=== PATIENT | female | born 1960 | race African-American/Black ===

== ENCOUNTER 2017-03-26 23:48 | Inpatient (IN) | payer OTHER ==
--- NOTE | 2017-03-26 23:57 | PDOC ---
History of Present Illness - General Chief Complaint: Syncope/Near Syncope Stated Complaint: SYNCOPE Time Seen by Provider: 03/26/17 23:57 - History of Present Illness Initial Comments: 57 year old female with HTN, HLD, and CAD (s/p stent placement 2 years prior) presenting 1 hour after syncope. She states that she has been nauseous since yesterday evening but was able to eat today. Her daughter at bedside states that she heard her mother (the patient) call her name out around 23:00 on the day of presentation at which point her daughter came to her and saw that she had fallen on the floor with minimal responsiveness. She was making noises and was on the floor for a few minutes then eventually came to and was talkative until EMS arrived. Her daughter did not notice any shaking, urination, or defecation. The patient admits to nausea but no vomiting. Denies fevers, chills , constipation, chest pain, cough, sick contacts, or other symptoms. 03/27/17 00:21 Past History - Past Medical History Allergies/Adverse Reactions: Allergies Allergy/AdvReac Type Severity Reaction Status Date / Time No Known Allergies Allergy Verified 03/26/17 23:54 Home Medications: Ambulatory Orders Aspirin [Neli Chewable] 81 mg PO DAILY 03/27/17 Atorvastatin Ca [Lipitor] mg PO HS 03/27/17 Hydrochlorothiazide [Hctz -] 25 mg PO DAILY 03/27/17 Lisinopril [Prinivil] mg PO DAILY 03/27/17 Metoprolol Succinate [Toprol Xl -] mg PO BID 03/27/17 Pantoprazole Sodium 40 mg PO DAILY 03/27/17 - Suicide/Smoking/Psychosocial Hx Smoking History: Never smoked Have you smoked in the past 12 months: No Information on smoking cessation initiated: No Hx Alcohol Use: No Drug/Substance Use Hx: No Review of Systems - Review of Systems Constitutional: No: Chills, Diaphoresis, Fever HEENTM: No: Blurred Vision, Tearing, Recent change in vision, Double Vision Respiratory: No: Cough, Shortness of Breath, Wheezing, Productive cough Cardiac (ROS): Yes: Syncope. No: Chest Pain, Chest Tightness ABD/GI: Yes: Nausea. No: Constipated, Diarrhea, Vomiting : No: Burning, Dysuria, Discharge, Frequency Integumentary: No: Change in Color, Flushing, Lesions Neurological: No: Headache, Numbness, Paresthesia *Physical Exam - Vital Signs Last Vital Signs Temp Pulse Resp BP Pulse Ox 97.6 F 110 H 22 100/69 97 03/26/17 23:55 03/26/17 23:55 03/26/17 23:55 03/26/17 23:55 03/26/17 23:55 - Physical Exam General Appearance: Yes: Nourished, Appropriately Dressed, Apparent Distress HEENT: positive: EOMI, TYRON, Normal ENT Inspection Neck: positive: Trachea midline, Normal Thyroid, Supple. negative: Tender, Rigid Respiratory/Chest: positive: Lungs Clear, Respiratory Distress, Crackles (Fine basilar crackles). negative: Chest Tender Cardiovascular: positive: Regular Rhythm, Regular Rate. negative: JVD, Murmur Gastrointestinal/Abdominal: positive: Normal Bowel Sounds, Flat, Soft. negative : Tender Neurologic: positive: Fully Oriented, Alert, Normal Response ED Treatment Course - LABORATORY CBC & Chemistry Diagram: 03/27/17 00:44 03/27/17 00:44 Medical Decision Making - Medical Decision Making 57 year old with significant cardiac history and recent syncope of unknown cause with diaphoresis, nausea, and shortness of breath prior to episode concerning for vasovagal vs. cardiac syncopal episode. Troponin returned elevated at 0.[address] changes on EKG. Sheila was discussed with the IM admitting resident in person at 2:40 AM and we agreed the patient woudl be appropriate for admission to [facility] after chest xray and UA were performed. Patient will be admitted for further workup of troponemia (NSTEMI vs. UA). 03/27/17 02:49 *DC/Admit/Observation/Transfer Diagnosis at time of Disposition: Syncope and collapse, Troponin level elevated - Discharge Dispostion Condition at time of disposition: Stable Admit: Yes - Referrals - Patient Instructions - Post Discharge Activity
[2017-03-27] MEDS ORDERED: ASPIRIN 81 MG CHEWABLE TABLETS PO ONE (00:18)
[2017-03-27] MEDS ORDERED: SODIUM CHLORIDE 1,000 ML IV STA (00:18)
[2017-03-27] MEDS ORDERED: ONDANSETRON 4 MG/2 ML VIAL IVPUSH ONE (00:21)
[2017-03-27 00:29] VITALS: BMI 28.3
--- NOTE | 2017-03-27 00:42 | PDOC ---
Attending Attestation - Resident Resident Name: Saleem Abel - ED Attending Attestation I have performed the following: I have examined & evaluated the patient, The case was reviewed & discussed with the resident, I agree w/resident's findings & plan, Exceptions are as noted - Physicial Exam PE: 03/27/17 03:42 Physical Exam General Appearance: Yes: Appropriately dressed, mild distress HEENT: positive: EOMI, TYRON, Normal ENT Inspection, Normal Voice, TMs Normal, Pharynx Normal. negative: Pale Conjunctivae, Photophobia, Scleral Icterus (R), Scleral Icterus (L) Neck: positive: Trachea midline, Normal Thyroid, Supple. negative: Tender, Rigid, Carotid bruit, Stridor, Lymphadenopathy (R), Lymphadenopathy (L), Thyromegaly Respiratory/Chest: positive: Lungs Clear, Normal Breath Sounds. negative: Chest Tender, Respiratory Distress, Accessory Muscle Use, Labored Respiration, RES, Crackles, Rales, Rhonchi, Stridor, Wheezing, Dullness Cardiovascular: positive: Regular Rhythm, Regular Rate, S1, S2. negative: Edema , JVD, Murmur, Bradycardia, Tachycardia Vascular Pulses: Dorsalis-Pedis (R): 2+, Doralis-Pedis (L): 2+ Gastrointestinal/Abdominal: positive: Normal Bowel Sounds, Flat, Soft. negative : Tender, Organomegaly, Pulsatile Mass, Increased Bowel Sounds, Decreased BS, Distended, Guarding, Rebound, Hernia, Hepatomegaly, Spleenomegaly Lymphatic: negative: Adenopathy, Tenderness Musculoskeletal: positive: Normal Inspection. negative: CVA Tenderness, Decreased Range of Motion Extremity: positive: Normal Capillary Refill, Normal Inspection, Normal Range of Motion, Pelvis Stable. negative: Tender, Pedal Edema, Swelling, Erythema Integumentary: positive: Normal Color, Dry, Warm. negative: Cyanotic, Erythema , Jaundice, Rash Neurologic: positive: pick remover II-XII NML intact, confused. negative: EOM Palsy, Facial Droop, Sensory Deficit <Jeffery Cerda - Last Filed: 03/27/17 03:42> - HPI HPI: 03/27/17 00:45 The patient is a 57 year old female, with a significant past medical history of hypertnesion, hyperlipidemia, who presents to the emergency department with nausea and syncope at 11PM. She reportedly fell to the floor and her syncope lasted about 2 minutes. She can not recall hitting her head. She reports her daughter came to her aide after the patient had fallen and called ems. She denies chest pain, shortness of breath, headache and dizziness. She denies fever, chills, vomit, diarrhea and constipation. She denies dysuria, frequency, urgency and hematuria. Allergies: NKDA Documentation prepared by Carmen Norton, acting as associate medical director for Jeffery Cerda DO - Medical Decision Making EXAM: CT CTA CHEST with contrast HISTORY: Concern for pulmonary embolism COMPARISON: None. FINDINGS: Current study is limited due to early phase of contrast-enhancement ( main pulmonary artery 44 Hounsfield units). This not adequate enhancement for confident evaluation of the pulmonary arteries. Heart:: Mildly enlarged with enlargement of the left ventricle. There is dense coronary artery calcification in the left anterior descending artery Pericardium: There is a small pericardial effusion. The effusion measures 1.2 cm lateral to the right ventricle Thoracic aorta and great vessels: Normal Superior vena cava and inferior vena cava: Normal Thoracic esophagus: Normal Mediastinal lymph nodes: Normal Central airways: Normal Lungs: There are focal areas of airspace consolidation in the lower lobes bilaterally and in the right middle lobe anteriorly Pleural spaces: There is a small left pleural fluid collection Chest wall: Normal Superior abdomen: There is cholelithiasis IMPRESSION: Limited study cannot exclude pulmonary embolism. Airspace consolidation in the lung bases suggest aspiration or pneumonia. Small pericardial effusion. Cholelithiasis Peter Hererra MD 03/27/2017 04:43 EST <Carmen oNrton - Last Filed: 03/27/17 05:04>
[2017-03-27 00:53] LABS: BASOPHIL 0.5 % (0-2.0); EOSINOPHIL 0.3 % (0-4.5); MCH 26.9 pg (25.7-33.7); MCHC 32.6 g/dl (32.0-36.0); MEAN CELL VOLUME 82.3 fl (80-96); MEAN PLT VOLUME 8.1 fl (7.5-11.1); NEUTROPHILS 85.5 % (42.8-82.8); PLATELET COUNT 214 K/MM3 (134-434); RDW 16.5 % (11.6-15.6)
[2017-03-27 01:23] LABS: INR 1.25 (0.82-1.09); PROTHROMBIN TIME (PATIENT) 14.1 SEC (9.98-11.88)
[2017-03-27 01:33] LABS: ALBUMIN 2.5 g/dl (3.4-5.0); ANION GAP 8 (8-16); CALCIUM 8.6 mg/dL (8.5-10.1); CO2 28 mmol/L (21-32); CREATININE 1.4 mg/dL (0.55-1.02); GLUCOSE,RANDOM 171 mg/dL (74-106); MAGNESIUM 2.2 mg/dL (1.8-2.4); SGOT/AST 30 U/L (15-37); SGPT/ALT 29 U/L (12-78)
[2017-03-27 01:37] LABS: ALK PHOS 67 U/L (45-117); BILIRUBIN,TOTAL 0.6 mg/dL (0.2-1.0); CPK 95 IU/L (26-192); TOT PROT 6.4 g/dl (6.4-8.2); TROPONIN I 0.35 ng/ml (0.00-0.05)
[2017-03-27] MEDS ORDERED: FUROSEMIDE 40 MG/4 ML INJECTABLE VIAL IVPUSH ONE ×3 (03:15→10:30)
[2017-03-27] MEDS ORDERED: CEFTRIAXONE 1 G/50 ML PREMIX 50 ML IVPB SCH (03:15)
[2017-03-27] MEDS ORDERED: AZITHROMYCIN IVPB 500 MG in DEXTROSE 5%-WATER - 250 ML IVPB SCH (03:15)
[2017-03-27] MEDS ORDERED: ASPIRIN 81 MG CHEWABLE TABLETS PO SCH ×2 (03:15→10:00)
--- NOTE | 2017-03-27 03:18 | HP ---
CHIEF COMPLAINT: Syncope PCP: Unknown HISTORY OF PRESENT ILLNESS: 57 year old F with pmh of HTN, HLD, and CAD s/p stent placement 2 years ago presenting after a syncopal episode. At 11:00 last night, patient's daughter states she heard her mother calling out for her. When she went to go see the patient, she was passed out on the floor unconscious for a couple of minutes. Upon awakening, patient had mild tremors, diaphoresis, and nausea. Patient was brought directly to the ER, where she was complaining of SOB, nausea, and mild abdominal pain. Patient states she was seen at [facility] 2 weeks ago for walking pneumonia. She was given a course of levaquin, which she completed. Patient endorses worsening SOB and lower extremity edema x 1 week. Patient also states for the past 24 hours she has been having a dry nonproductive cough and nausea. Patient also endorses increasing orthopnea. ER course was notable for: (1) WBC-18 (2) EKG- unremarkable (3) troponin- 0.35 (4) CXR- bibasilar pleural effusions (5) 1 L NS given, patient hypoxic after Recent Travel: denies PAST MEDICAL HISTORY: as per HPI PAST SURGICAL HISTORY: Stent placement 2 years ago Social History: Smoking: denies Alcohol: denies Drugs: denies Family History: Allergies No Known Allergies Allergy (Verified 03/26/17 23:54) HOME MEDICATIONS: Home Medications Medication Instructions Recorded Aspirin [Neli Chewable] 81 mg PO DAILY 03/27/17 Atorvastatin Ca [Lipitor] mg PO HS 03/27/17 Hydrochlorothiazide [Hctz -] 25 mg PO DAILY 03/27/17 Lisinopril [Prinivil] mg PO DAILY 03/27/17 Metoprolol Succinate [Toprol Xl -] mg PO BID 03/27/17 Pantoprazole Sodium 40 mg PO DAILY 03/27/17 REVIEW OF SYSTEMS CONSTITUTIONAL: Absent: fever, chills, diaphoresis, generalized weakness, malaise, loss of appetite, weight change HEENT: Absent: rhinorrhea, nasal congestion, throat pain, throat swelling, difficulty swallowing, mouth swelling, ear pain, eye pain, visual changes CARDIOVASCULAR: Absent: chest pain, syncope, palpitations, irregular heart rate, lightheadedness , peripheral edema RESPIRATORY: Absent: cough, shortness of breath, dyspnea with exertion, orthopnea, wheezing, stridor, hemoptysis GASTROINTESTINAL: Absent: abdominal pain, abdominal distension, nausea, vomiting, diarrhea, constipation, melena, hematochezia GENITOURINARY: Absent: dysuria, frequency, urgency, hesitancy, hematuria, flank pain, genital pain MUSCULOSKELETAL: Absent: myalgia, arthralgia, joint swelling, back pain, neck pain SKIN: Absent: rash, itching, pallor HEMATOLOGIC/IMMUNOLOGIC: Absent: easy bleeding, easy bruising, lymphadenopathy, frequent infections ENDOCRINE: Absent: unexplained weight gain, unexplained weight loss, heat intolerance, cold intolerance NEUROLOGIC: Absent: headache, focal weakness or paresthesias, dizziness, unsteady gait, seizure, mental status changes, bladder or bowel incontinence PSYCHIATRIC: Absent: anxiety, depression, suicidal or homicidal ideation, hallucinations. PHYSICAL EXAMINATION Vital Signs - 24 hr 03/26/17 23:55 Temperature 97.6 F Pulse Rate 110 H Respiratory 22 Rate Blood Pressure 100/69 O2 Sat by Pulse 97 Oximetry (%) GENERAL: Awake, alert, and fully oriented, in no acute distress. HEAD: Normal with no signs of trauma. EYES: Pupils equal, round and reactive to light, extraocular movements intact, sclera anicteric, conjunctiva clear. No lid lag. EARS, NOSE, THROAT: Dry mucous membranes NECK: Normal range of motion, supple without lymphadenopathy, JVD, or masses. LUNGS: Breath sounds equal, Bilateral basilar crackles. No wheezes. No accessory muscle use. HEART: Regular rate and rhythm, normal S1 and S2 without murmur, rub or gallop. ABDOMEN: Soft, nontender, not distended, normoactive bowel sounds, no guarding, no rebound, no masses. No hepatomegaly or splenomegaly. MUSCULOSKELETAL: Normal range of motion at all joints. No bony deformities or tenderness. No CVA tenderness. UPPER EXTREMITIES: 2+ pulses, warm, well-perfused. No cyanosis. No clubbing. No peripheral edema. LOWER EXTREMITIES: 2+ pulses, warm, well-perfused. No calf tenderness. No peripheral edema. NEUROLOGICAL: Cranial nerves II-XII intact. Normal speech. 5/5 strength in UE/ LE, Sensation intact bilaterally PSYCHIATRIC: Cooperative. Good eye contact. Appropriate mood and affect. SKIN: Warm, dry, normal turgor, no rashes or lesions noted, normal capillary refill. Laboratory Results - last 24 hr 03/27/17 03/27/17 03/27/17 00:44 00:44 00:44 WBC 18.0 H RBC 4.56 Hgb 12.3 Hct 37.5 MCV 82.3 MCH 26.9 MCHC 32.6 RDW 16.5 H Plt Count 214 MPV 8.1 Neutrophils % 85.5 H Lymphocytes % 8.9 Monocytes % 4.8 Eosinophils % 0.3 Basophils % 0.5 PT with INR 14.10 H INR 1.25 H Sodium 142 Potassium 3.4 L Chloride 106 Carbon Dioxide 28 Anion Gap 8 BUN 17 Creatinine 1.4 H Creat Clearance w eGFR 38.49 Random Glucose 171 H Calcium 8.6 Magnesium 2.2 Total Bilirubin 0.6 AST 30 ALT 29 Alkaline Phosphatase 67 Creatine Kinase 95 Troponin I 0.35 H Total Protein 6.4 Albumin 2.5 L ASSESSMENT/PLAN: 57 year old F with pmh of HTN, HLD, and CAD s/p stent placement 2 years ago presenting s/p syncopal episode admitted for troponinemia to telemetry. #Syncope -Admit to Tele -Repeat EKG in the AM -Echo pending -Carotid U/s pending -HbA1c pending -Lipid profile pending -Fall risk precautions -Orthostatic vital signs ordered #Bilateral Mild Pleural Effusions, possible 2/2 to CHF exacerbation -Patient has SOB with bibasilar crackles, dry cough, and increased swelling x 1 week. -BNP ordered -Strict I/O -Daily weights -40 mg IV lasix given #Leukocytosis -Ceftriaxone 1 g daily IV -Azithromycin 500 mg daily IV -Monitor CBC #Troponinemia 2/2 to likely demand ischemia -Troponin of 0.35 -Repeat Troponin and EKG in the AM -ASA 81 mg po daily -Cardiology consulted, Dr. Edwards #CAD s/p stent placement -Continue ASA 81 mg po daily #MARCO, possibly prerenal -Urine electrolytes pending -Hold Lisinopril and HCTZ -Monitor creatinine -Avoid nephrotoxic medication #HTN -Continue Metoprolol xl 50 mg PO BID -Hold Lisinopril and HCTZ in the setting of MARCO #HLD -Continue lipitor 80 mg po hs #FEN/GI -No fluids indicated at this time in the setting of bibasilar crackles -Hypokalemia- Potassium repleted -Sodium controlled diet #PPx DVT- Heparin 5000 units sq q8h GI- Protonix 40 mg po daily Case discussed with medical team Visit type - Emergency Visit Emergency Visit: Yes ED Registration Date: 03/27/17 Care time: The patient presented to the Emergency Department on the above date and was hospitalized for further evaluation of their emergent condition. - New Patient This patient is new to me today: Yes Date on this admission: 03/27/17 - Critical Care Critical Care patient: No
[2017-03-27] MEDS ORDERED: POTASSIUM CHLORIDE ORAL LIQUID 20 MEQ/15 ML PO ONE (03:19)
[2017-03-27 03:52] LABS: PH,URINE 5.5 (5.0-8.0); URINE APPEARANCE CLEAR; URINE BILIRUBIN NEGATIVE (NEGATIVE); URINE BLOOD NEGATIVE (NEGATIVE); URINE COLOR LT. YELLOW; URINE GLUCOSE (UA) NEGATIVE (NEGATIVE); URINE KETONE NEGATIVE (NEGATIVE); URINE NITRITE NEGATIVE (NEGATIVE); URINE PROTEIN NEGATIVE (NEGATIVE); URINE UROBILINOGEN 0.2 mg/dL (0.2-1.0)
[2017-03-27] MEDS ORDERED: AZITHROMYCIN IVPB 250 ML IVPB ONE (04:30)
[2017-03-27] MEDS ORDERED: CEFTRIAXONE 1 GM/50 ML BAG ONE (04:30)
[2017-03-27] MEDS ORDERED: FUROSEMIDE 40 MG/4 ML INJECTABLE VIAL ONE ×2 (04:30→09:51)
--- NOTE | 2017-03-27 04:49 | PN ---
Teaching Attending Note Name of Resident: Rocky Denise ATTENDING PHYSICIAN STATEMENT I saw and evaluated the patient. I reviewed the resident's note and discussed the case with the resident. I agree with the resident's findings and plan as documented. SUBJECTIVE: 57 year old F presenting after an episode of syncope associated with diaphoresis , and nausea. Patient was brought directly to the ER, where she was complaining of SOB, nausea, and mild abdominal pain. PMH HTN HLD CAD OBJECTIVE: Vital Signs Temperature 99 F 03/27/17 03:46 Pulse Rate 103 H 03/27/17 04:41 Respiratory Rate 14 03/27/17 04:41 Blood Pressure 115/76 03/27/17 04:41 O2 Sat by Pulse Oximetry (%) 97 03/26/17 23:55 LUNGS: Breath sounds equal, Bilateral basilar crackles. No wheezes. No accessory muscle use. HEART: Regular rate and rhythm, normal S1 and S2 without murmur, rub or gallop. ABDOMEN: Soft, nontender, not distended, normoactive bowel sounds, no guarding, no rebound, no masses. CBC, BMP 03/27/17 00:44 03/27/17 00:44 CMP Sodium 142 mmol/L (136-145) 03/27/17 00:44 Potassium 3.4 mmol/L (3.5-5.1) L 03/27/17 00:44 Chloride 106 mmol/L (98-107) 03/27/17 00:44 Carbon Dioxide 28 mmol/L (21-32) 03/27/17 00:44 Anion Gap 8 (8-16) 03/27/17 00:44 BUN 17 mg/dL (7-18) 03/27/17 00:44 Creatinine 1.4 mg/dL (0.55-1.02) H 03/27/17 00:44 Creat Clearance w eGFR 38.49 (>60) 03/27/17 00:44 Random Glucose 171 mg/dL (74-106) H 03/27/17 00:44 Calcium 8.6 mg/dL (8.5-10.1) 03/27/17 00:44 Magnesium 2.2 mg/dL (1.8-2.4) 03/27/17 00:44 Total Bilirubin 0.6 mg/dL (0.2-1.0) 03/27/17 00:44 AST 30 U/L (15-37) 03/27/17 00:44 ALT 29 U/L (12-78) 03/27/17 00:44 Alkaline Phosphatase 67 U/L (45-117) 03/27/17 00:44 Creatine Kinase 95 IU/L (26-192) 03/27/17 00:44 Troponin I 0.35 ng/ml (0.00-0.05) H 03/27/17 00:44 Total Protein 6.4 g/dl (6.4-8.2) 03/27/17 00:44 Albumin 2.5 g/dl (3.4-5.0) L 03/27/17 00:44 ASSESSMENT AND PLAN: 57 year old with syncope and SOB, clinical signs of right heart failure CTA was non conclusive for PE due to poor contrast penetration .CTA susp for LAD calcification -telemetry - ECHO stat - trend troponin - consider US doppler - cardiology consultation - ortho vitals
[2017-03-27] MEDS ORDERED: POTASSIUM CHLORIDE ORAL LIQUID 20 MEQ/15 ML ONE (05:22)
[2017-03-27] MEDS ORDERED: HEPARIN NA (PORCINE) 5,000 UNITS/ML 1ML VIAL SQ SCH (06:00)
[2017-03-27 08:26] LABS: ANION GAP 8 (8-16); CALCIUM 8.4 mg/dL (8.5-10.1); CHOLESTEROL 158 mg/dL (50-200); CO2 29 mmol/L (21-32); CREATININE 1.4 mg/dL (0.55-1.02); GLUCOSE,RANDOM 151 mg/dL (74-106); MAGNESIUM 2.4 mg/dL (1.8-2.4)
[2017-03-27 08:28] LABS: BASOPHIL 0.2 % (0-2.0); MCH 26.7 pg (25.7-33.7); MCHC 32.1 g/dl (32.0-36.0); MEAN CELL VOLUME 83.2 fl (80-96); MEAN PLT VOLUME 8.1 fl (7.5-11.1); NEUTROPHILS 87.1 % (42.8-82.8); PLATELET COUNT 213 K/MM3 (134-434); RDW 16.8 % (11.6-15.6)
[2017-03-27 08:43] LABS: CPK 132 IU/L (26-192)
[2017-03-27 08:46] LABS: TROPONIN I 1.08 ng/ml (0.00-0.05)
[2017-03-27] MEDS ORDERED: METOPROLOL SUCCINATE 50 MG TAB.SR.24H (FP) PO SCH (10:00)
[2017-03-27] MEDS ORDERED: PANTOPRAZOLE 40 MG TABLET (FP) PO SCH (10:00)
[2017-03-27] MEDS ORDERED: HEPARIN NA (PORCINE) 5,000 UNITS/ML 1ML VIAL IVPUSH PRN ×6 (11:45→16:40)
[2017-03-27] MEDS ORDERED: HEPARIN - 25,000 UNIT in SODIUM CHLORIDE 495 ML IV SCH ×2 (11:45→14:33)
[2017-03-27] MEDS ORDERED: HEPARIN NA (PORCINE) 5,000 UNITS/ML 1ML VIAL IVPUSH ONE ×2 (11:46→14:29)
[2017-03-27] MEDS ORDERED: ASPIRIN COATED 81 MG TABLET.EC PO ONE (11:54)
--- NOTE | 2017-03-27 11:58 | PN ---
Progress Note (short form) - Note Progress Note: Subjective: denies any CP right now . reports having chest pain ( pressure like) with exertion x 2 weeks . reports feeling nauseous x 2-3 days prior to her presentation. reports stopping asa x 1 week for EGD last friday , then it was resumed yesterday. reports feeling SOB and very nauseous just before she passed out, then when she woke up she was very SOB even on arrival to ER . she received IVF in ER ( 1 L ) . then she was diuresied . Objective: Vital Signs: Last Vital Signs Temp Pulse Resp BP Pulse Ox 99 F 98 H 20 101/60 100 03/27/17 11:49 03/27/17 11:50 03/27/17 11:50 03/27/17 11:50 03/27/17 08:54 Laboratory Results - last 24 hr 03/27/17 03/27/17 03/27/17 00:44 00:44 00:44 WBC 18.0 H RBC 4.56 Hgb 12.3 Hct 37.5 MCV 82.3 MCH 26.9 MCHC 32.6 RDW 16.5 H Plt Count 214 MPV 8.1 Neutrophils % 85.5 H Lymphocytes % 8.9 Monocytes % 4.8 Eosinophils % 0.3 Basophils % 0.5 PT with INR 14.10 H INR 1.25 H Sodium 142 Potassium 3.4 L Chloride 106 Carbon Dioxide 28 Anion Gap 8 BUN 17 Creatinine 1.4 H Creat Clearance w eGFR 38.49 Random Glucose 171 H Hemoglobin A1c % Calcium 8.6 Phosphorus Magnesium 2.2 Total Bilirubin 0.6 AST 30 ALT 29 Alkaline Phosphatase 67 Creatine Kinase 95 Troponin I 0.35 H B-Natriuretic Peptide Total Protein 6.4 Albumin 2.5 L Triglycerides Cholesterol Total LDL Cholesterol HDL Cholesterol Urine Color Urine Appearance Urine pH Ur Specific [place] Urine Protein Urine Glucose (UA) Urine Ketones Urine Blood Urine Nitrite Urine Bilirubin Urine Urobilinogen 03/27/17 03/27/17 03/27/17 03:45 06:30 06:30 WBC 17.0 H RBC 4.77 Hgb 12.7 Hct 39.7 MCV 83.2 MCH 26.7 MCHC 32.1 RDW 16.8 H Plt Count 213 MPV 8.1 Neutrophils % 87.1 H Lymphocytes % 7.8 L Monocytes % 4.9 Eosinophils % 0.0 D Basophils % 0.2 PT with INR INR Sodium 143 Potassium 3.5 Chloride 106 Carbon Dioxide 29 Anion Gap 8 BUN 17 Creatinine 1.4 H Creat Clearance w eGFR Random Glucose 151 H Hemoglobin A1c % Calcium 8.4 L Phosphorus 3.0 Magnesium 2.4 Total Bilirubin AST ALT Alkaline Phosphatase Creatine Kinase 132 Troponin I 1.08 H* B-Natriuretic Peptide 5328.55 H Total Protein Albumin Triglycerides 72 Cholesterol 158 Total LDL Cholesterol 97 HDL Cholesterol 40 Urine Color Lt. yellow Urine Appearance Clear Urine pH 5.5 Ur Specific [place] 1.020 Urine Protein Negative Urine Glucose (UA) Negative Urine Ketones Negative Urine Blood Negative Urine Nitrite Negative Urine Bilirubin Negative Urine Urobilinogen 0.2 03/27/17 06:30 WBC RBC Hgb Hct MCV MCH MCHC RDW Plt Count MPV Neutrophils % Lymphocytes % Monocytes % Eosinophils % Basophils % PT with INR INR Sodium Potassium Chloride Carbon Dioxide Anion Gap BUN Creatinine Creat Clearance w eGFR Random Glucose Hemoglobin A1c % 6.1 H Calcium Phosphorus Magnesium Total Bilirubin AST ALT Alkaline Phosphatase Creatine Kinase Troponin I B-Natriuretic Peptide Total Protein Albumin Triglycerides Cholesterol Total LDL Cholesterol HDL Cholesterol Urine Color Urine Appearance Urine pH Ur Specific [place] Urine Protein Urine Glucose (UA) Urine Ketones Urine Blood Urine Nitrite Urine Bilirubin Urine Urobilinogen Physical Exam: NAD, AAOx3 . comfortable on breathing mask HEENT: Moist MM. JVD . CV: Regular rhythm, rate in high 90s , no MRG. Lungs: bibasilar rales, otherwise clear Abd: soft, Nt, ND , NL BS Ext: no edema , tenderness to palpation on L navarrete . DP 2+ b/l . Assessment/Plan: 57 y/o pleasant lady with h/o HTN, HLP, CAD s/p stents placed 2 yrs ago, and recent treatment for CAP ( , and 2 weeks ago) who presented with a syncopal episode and SOB . 1-Acute hypoxic resp failure: this could be due acute heart failure in addition to CAP ( infiltrates and leukocytosis ) . she presented SOB , given IVF, became more hypoxic and SOB. EKG with nL axis, TWI in anterioseptal leads , q waves in III. no prior to compare to. suspicion for NSTEMI with rising trop and strong hx of angina while off ASA. PE is less likely in DDx - hold off diuresis for now as SBP 80s-90s - treat for CAP , with ceftriaxons and azithro - check US of LE due to tenderness on LLE - I&O 2- Possible NSTEMI: with evidence of TWI in anterioseptal leads. no prior to compare trop rising . NO active CP - Repeat EKG now : no change - repeat trop stat -received 81 mg of asa this am, will give 243 mg - BP does not tolerate BB - start heparin gtt until evaluated by card . d/w pt risk of bleed ( had EGD with inflammation seen and bx taken ) , she accepts the risk - card consult , will call Dr. Jack - Echo - cont statin 3- Syncope : high suspicion for cardiac origin (DC or associated arrhythmias) - tele ( no events bur episodes of sinus tachy) - echo 4- H/O HTN: hold CTZ . now hypotensive 5- MEds confirmed with pt and updated in EMR . Intake & Output 03/24/17 03/25/17 03/26/17 03/27/17 23:59 23:59 23:59 23:59 Weight 165 lb Visit type - Emergency Visit Emergency Visit: Yes ED Registration Date: 03/27/17 Care time: The patient presented to the Emergency Department on the above date and was hospitalized for further evaluation of their emergent condition. - New Patient This patient is new to me today: Yes Date on this admission: 03/27/17 - Critical Care Critical Care patient: No
[2017-03-27 12:06] LABS: URINE LEUK ESTERASE Negative (NEGATIVE)
[2017-03-27 13:13] LABS: TROPONIN I 1.43 ng/ml (0.00-0.05)
--- NOTE | 2017-03-27 14:06 | CON.CARD ---
Cardiology Consult (text) - Consultation Consultation Note: CC: syncope 57 year old with h/o HTN, HLD, and CAD (s/p stent placement 2 years prior) presents with syncope, persistent hypoxia, hypotension now with new dx of dvt and concern for PE. She states that she has been nauseous since yesterday evening but was able to eat today. Her daughter at bedside states that she heard her mother (the patient ) call her name out around 23:00 on the day of presentation at which point her daughter came to her and saw that she had fallen on the floor with minimal responsiveness. Recently with sob and cough has been treated for pna at another hospital. Denies fevers, chills,sweats, vomiting, diarrhea, rashes, congestion, myalgias. Mild pleuritic chest pain, chronic mild le edema. no orthopnea, pnd, le pain, palps, bleeding. pmhx/pshx: per hpi social hx: non-smoker fam hx: + dvt ros: per hpi Ambulatory Orders Aspirin [Neli Chewable] 81 mg PO DAILY 03/27/17 Atorvastatin Ca [Lipitor] 80 mg PO HS 03/27/17 Hydrochlorothiazide [Hctz -] 25 mg PO DAILY 03/27/17 Lisinopril [Prinivil] 20 mg PO DAILY 03/27/17 Metoprolol Tartrate 25 mg PO BID 03/27/17 Pantoprazole Sodium 40 mg PO DAILY 03/27/17 Current Medications Aspirin (Asa -) 81 mg PO DAILY [facility] Last Admin: 03/27/17 10:00 Dose: 81 mg Atorvastatin Calcium (Lipitor -) 80 mg PO [facility] Heparin Sodium (Porcine) (Heparin -) 1,000 unit IVPUSH PRN PRN PRN Reason: Heparin Heparin Sodium (Porcine) (Heparin -) 5,000 unit IVPUSH PRN PRN PRN Reason: Heparin Azithromycin 500 mg/ Dextrose 250 mls @ 250 mls/hr IVPB DAILY [facility] Last Admin: 03/27/17 05:20 Dose: 250 mls/hr CEFTRIAXONE 1 G/50 ML PREMIX (Ceftriaxone 1 Gm-D5w Bag) 50 mls @ 200 mls/hr IVPB DAILY [facility] Last Admin: 03/27/17 04:40 Dose: 200 mls/hr Heparin Sodium (Porcine) 25, (000 unit/ Sodium Chloride) 500 mls @ 20 mls/hr IV TITR YESENIA; 1,000 UNIT/HR PRN Reason: Protocol Pantoprazole Sodium (Protonix -) 40 mg PO DAILY [facility] Last Admin: 03/27/17 10:00 Dose: 40 mg Vital Signs - 24 hr 03/26/17 03/27/17 03/27/17 23:55 03:27 03:46 Temperature 97.6 F 99 F Pulse Rate 110 H Pulse Rate [ 110 H 103 H Apical] Respiratory 22 18 12 Rate Blood Pressure 100/69 Blood Pressure 98/64 115/73 [Left Arm] O2 Sat by Pulse 97 Oximetry (%) 03/27/17 03/27/17 03/27/17 04:41 05:10 05:35 Temperature Pulse Rate Pulse Rate [ 103 H 103 H Apical] Respiratory 14 22 Rate Blood Pressure Blood Pressure 115/76 139/93 [Left Arm] O2 Sat by Pulse 100 97 Oximetry (%) 03/27/17 03/27/17 03/27/17 08:35 08:54 09:58 Temperature 98 F Pulse Rate 105 H 99 H Pulse Rate [ Apical] Respiratory 22 22 20 Rate Blood Pressure 98/59 79/48 Blood Pressure [Left Arm] O2 Sat by Pulse 100 Oximetry (%) 03/27/17 03/27/17 11:49 11:50 Temperature 99 F Pulse Rate 97 H 98 H Pulse Rate [ Apical] Respiratory 20 20 Rate Blood Pressure 90/60 101/60 Blood Pressure [Left Arm] O2 Sat by Pulse Oximetry (%) Intake & Output 03/25/17 03/26/17 03/27/17 03/28/17 07:59 07:59 07:59 07:59 Weight 165 lb nad, calm jvd flat, neck supple ctab, nl effort tachycardic, regular nl s1, s2 no mrg + bs soft nt nd ext without e/c/c + dp/pt aaox3 no jaundice, diaphoresis no carotid bruits. CBC, BMP 03/27/17 06:30 03/27/17 06:30 Laboratory Tests 03/27/17 03/27/17 03/27/17 00:44 00:44 06:30 WBC 17.0 H Hgb 12.7 Plt Count 213 Neutrophils % 87.1 H PT with INR 14.10 H INR 1.25 H PTT (Actin FS) Hemoglobin A1c % Magnesium Total Bilirubin 0.6 AST 30 ALT 29 Alkaline Phosphatase 67 Creatine Kinase 95 Troponin I 0.35 H B-Natriuretic Peptide Albumin 2.5 L Triglycerides Cholesterol Total LDL Cholesterol HDL Cholesterol 03/27/17 03/27/17 03/27/17 06:30 06:30 11:51 WBC Hgb Plt Count Neutrophils % PT with INR INR PTT (Actin FS) 26.1 L Hemoglobin A1c % 6.1 H Magnesium 2.4 Total Bilirubin AST ALT Alkaline Phosphatase Creatine Kinase 132 Troponin I B-Natriuretic Peptide 5328.55 H Albumin Triglycerides 72 Cholesterol 158 Total LDL Cholesterol 97 HDL Cholesterol 40 03/27/17 12:35 WBC Hgb Plt Count Neutrophils % PT with INR INR PTT (Actin FS) Hemoglobin A1c % Magnesium Total Bilirubin AST ALT Alkaline Phosphatase Creatine Kinase 145 Troponin I 1.43 H* B-Natriuretic Peptide Albumin Triglycerides Cholesterol Total LDL Cholesterol HDL Cholesterol EKG: sinus tach. septal infarct. non-specific t wave ab tele: sinus tach echo: nl lv size/fn. RV dilation and decreased function with concern for right heart strain. see emr for full report chest cta: non-diagnostic for PE. bibasilar opacities with air bronchograms c/ w pna. trace pleural effusions. small pericardial effusion. mild pa dilation 57 year old with h/o HTN, HLD, and CAD (s/p stent placement 2 years prior) presents with syncope, persistent hypoxia, hypotension now with new dx of dvt and concern for PE. right heart strain with new dvt. - + persistent hypoxia, hypotension, mild troponin elevation with normal ck. - patient with LE dopplers positive for occlusive DVT in R popliteal vein. Echo findings c/w for PE with right heart strain. Although ct findings c/w pna --> concern that hypotension/hypoxia could be from PE and note sepsis. - Recommend repeating CTA. IVF as needed for bp. - con't ac with heparin drip cad - troponin elevation in setting of normal CK. LIkely demand in setting of underlying heart disease. Would not give bb while patient hypotensive. On AC for Dvt. statin once acute issues resolve. HTN - pneaele-rnme-vyzrvdgnrepe while patient hypotensive. possible pna - per pmd. > 40 min cct
[2017-03-27] MEDS ORDERED: ACETYLCYSTEINE 20% 200MG/ML 30ML VIAL *FOR INJECTION USE ONLY IVPB ONE (15:27)
--- NOTE | 2017-03-27 15:29 | HOSP ---
Subjective - Review of Symptoms Events since last encounter: DVT came back positive for R popliteal DVT. at this point , ther eis two scenarios : 1- DVT caused PE, that caused hypotension, R heart strain with elevated trop and hypoxia or 2- Pneumonia caused hypoxia and sepsis that led to hypotension . The only way to know is to perform a CTA . plan: - start heparin gtt per VTE protocol ( bolus of 80 units/kg , then start rate 18 u /kg /hr ) titrate dose for a PTT 60-80 - transfer to ICU - start IVF - give acetylcestein as a preparation for repeat CTA - d/w Dr. bettencourt, will be able to obtain Echo today . - discussed with family the need for CTA to diagnose possible PE, also explained the risk of renal failure (BRENNAN) . Other possibility is to hydrate x 24 hr form first CTA and then perform CTA , but with risk of possible cardiovascular compromise over night if clot gets bigger . - spoke to patient , her sister in room and her cousin Dr. Mosley over the phone. the decision was to go for echo as a first step , then decide on CTA . Physical Examination Vital Signs: Vital Signs Temperature 98 F 03/27/17 14:17 Pulse Rate 96 H 03/27/17 14:17 Respiratory Rate 20 03/27/17 14:17 Blood Pressure 90/60 03/27/17 14:17 O2 Sat by Pulse Oximetry (%) 100 03/27/17 08:54 Labs: CBC, BMP 03/27/17 06:30 03/27/17 06:30
[2017-03-27] MEDS: SODIUM CHLORIDE 1,000 ML IV SCH (16:00)
[2017-03-27] MEDS: HEPARIN - 25,000 UNIT in SODIUM CHLORIDE 495 ML IV SCH (16:00)
[2017-03-27] MEDS ORDERED: ACETYLCYSTEINE 20% 200MG/ML 4 ML VIAL *FOR ORAL / INH USE ONLY PO ONE (17:23)
[2017-03-27] MEDS ORDERED: ACETYLCYSTEINE 20% 200MG/ML 4 ML VIAL *FOR ORAL / INH USE ONLY ONE (17:52)
[2017-03-27] MEDS ORDERED: SODIUM CHLORIDE 500 ML IV STA (18:43)
[2017-03-27 20:20] LABS: TROPONIN I 1.42 ng/ml (0.00-0.05)
--- NOTE | 2017-03-27 20:32 | HOSP ---
Physical Examination Vital Signs: Vital Signs Temperature 97.8 F 03/27/17 19:00 Pulse Rate 104 H 03/27/17 19:52 Respiratory Rate 25 H 03/27/17 19:52 Blood Pressure 115/68 03/27/17 19:52 O2 Sat by Pulse Oximetry (%) 100 03/27/17 16:00 Constitutional: Yes: Calm Eyes: Yes: Conjunctiva Clear, EOM Intact HENT: Yes: Atraumatic, Normocephalic Neck: Yes: Trachea Midline Respiratory: Yes: Diminished, On Nasal O2, Orthopnea, Rales, SOB on Exertion Psychiatric: Yes: Alert, Oriented Labs: CBC, BMP 03/27/17 06:30 03/27/17 06:30 Hospitalist Encounter Assessment: Dscussed c with primary attending . Echo reviewed and shows signs of right heart strain suggesive of a large pulmonary embolus. Discussed the need for repeat CTA with patient . Risks of contrast induced nephropathy explained and patient is aware, however considering hypotension and hemodynamic instability large PE needs to be excluded. CTA stat Discussed with Dr Stevens - [facility]/Radiology
[2017-03-27] MEDS ORDERED: ALTEPLASE 50MG 25 MG in SODIUM CHLORIDE 250 ML IVPB ONE (21:30)
[2017-03-27] MEDS ORDERED: ATORVASTATIN CA 80 MG TABLET (FP) PO SCH (22:00)
--- NOTE | 2017-03-27 22:04 | EKG ---
Test Reason : Blood Pressure : / mmHG Vent. Rate : 110 BPM Atrial Rate : 110 BPM P-R Int : 148 ms QRS Dur : 082 ms QT Int : 324 ms P-R-T Axes : 059 024 017 degrees QTc Int : 438 ms SINUS TACHYCARDIA POSSIBLE LEFT ATRIAL ENLARGEMENT SEPTAL INFARCT , AGE UNDETERMINED NONSPECIFIC ST AND T WAVE ABNORMALITY ABNORMAL ECG NO PREVIOUS ECGS AVAILABLE Confirmed by HOLLY REZA MD ([id number]) on 03/27/2017 10:04:20 PM Referred By: Confirmed By:HOLLY REZA MD
--- NOTE | 2017-03-27 22:12 | EKG ---
Test Reason : Blood Pressure : / mmHG Vent. Rate : 102 BPM Atrial Rate : 102 BPM P-R Int : 150 ms QRS Dur : 078 ms QT Int : 364 ms P-R-T Axes : 064 017 035 degrees QTc Int : 474 ms SINUS TACHYCARDIA POSSIBLE LEFT ATRIAL ENLARGEMENT ABNORMAL ECG WHEN COMPARED WITH ECG OF 27-MAR-2017 00:54, Confirmed by HOLLY REZA MD ([id number]) on 03/27/2017 10:11:51 PM Referred By: Madison VILLEGAS Confirmed By:HOLLY REZA MD
[2017-03-27 22:26] LABS: URINE APPEARANCE CLEAR; URINE BILIRUBIN NEGATIVE (NEGATIVE); URINE BLOOD NEGATIVE (NEGATIVE); URINE COLOR LTYELLOW; URINE GLUCOSE (UA) NEGATIVE (NEGATIVE); URINE KETONE NEGATIVE (NEGATIVE); URINE NITRITE NEGATIVE (NEGATIVE); URINE PROTEIN NEGATIVE (NEGATIVE); URINE UROBILINOGEN NEGATIVE mg/dL (0.2-1.0)
[2017-03-27 22:53] LABS: URINE CHLORIDE 24 MEQ/L; URINE POTASSIUM 59.2 MEQ/L
--- NOTE | 2017-03-27 23:48 | CONSULT ---
Consult Consult Specialty:: Pulmonary Critical Care Reason for Consultation:: PE - History of Present Illness Chief Complaint: SOB History of Present Illness: Pt is a 57 yo female with h/o HTN, HLD and CAD s/p stent placement 2 yrs ago. She was recently treated for possible pneumonia, completed a course of levaquin. Over the past week has been having progressively worsening SOB as well as LE edema x 1 week. Earlier today had a syncopal episode and was brought to ED by her daughter. In ED labs notable for trop of 1.08 (trending up now, 1.4), BNP 5328, WBC 17, Lactate 2. EKG with sinus tachycardia with no ischemic changes. CTA poor study for PE given timing of the study, filemon LL consolidations c/f pneumonia. LE dopplers positive for occlusive DVT in R popliteal vein. As per report, TTE with e/o right heart strain. Pt relatively hypotensive with SBP in 90s, given 500cc of fluids with no significant improvement in BP. All findings very c/f massive PE. Pt admitted to ICU for further management. CTA repeated, official read pending. This evening went to IR for catheter directed tpa. - Alcohol/Substance Use Hx Alcohol Use: No - Smoking History Smoking history: Never smoked Have you smoked in the past 12 months: No Home Medications - Allergies Allergies/Adverse Reactions: Allergies Allergy/AdvReac Type Severity Reaction Status Date / Time No Known Allergies Allergy Verified 03/26/17 23:54 - Home Medications Home Medications: Ambulatory Orders Aspirin [Neli Chewable] 81 mg PO DAILY 03/27/17 Atorvastatin Ca [Lipitor] 80 mg PO HS 03/27/17 Hydrochlorothiazide [Hctz -] 25 mg PO DAILY 03/27/17 Lisinopril [Prinivil] 20 mg PO DAILY 03/27/17 Metoprolol Tartrate 25 mg PO BID 03/27/17 Pantoprazole Sodium 40 mg PO DAILY 03/27/17 Physical Exam Vital Signs: Vital Signs Temperature 97.8 F 03/27/17 19:00 Pulse Rate 97 H 03/27/17 20:45 Respiratory Rate 26 H 03/27/17 20:45 Blood Pressure 104/66 03/27/17 20:45 O2 Sat by Pulse Oximetry (%) 100 03/27/17 16:00 Constitutional: Yes: Calm Eyes: Yes: Other (injected sclera) Cardiovascular: Yes: Tachycardia, S1, S2 Respiratory: Yes: CTA Bilaterally Gastrointestinal: Yes: Normal Bowel Sounds, Soft, Abdomen, Obese Peripheral Pulses WNL: Yes Labs: CBC, BMP 03/27/17 06:30 03/27/17 06:30 Imaging - Results Chest X-ray: Image Reviewed Cat Scan: Report Reviewed Ultrasound: Report Reviewed EKG: Report Reviewed Assessment/Plan PE (CTA non diagnostic, but elevated trop, BNP as well as TTE findings and R LE DVT all c/w PE) R popliteal vein DVT CAP Hypotension likely in the setting of PE At risk for contrast induced renal failure given 2 CTAs -s/p catheter directed tpa by IR. Alteplase infusing -continue heparin for full therapeutic -cont ASA -supplement oxygen as needed -f/u 2nd CTA official read -cont azithro/ceftriaxone for CAP -if worsening leukocytosis and/or fever would escalate to cover for HCAP given recent abx course -trend troponin and BNP -cont pantoprazole -monitor UO and SCr -has rec'd NAC prior to CTA [facility] time 45 min
[2017-03-28] MEDS: CHLORHEXIDINE GLUCONATE 4% CLEANSER FOR DECOLONIZATION TP SCH ×2 (01:18→22:08)
[2017-03-28] MEDS: ATORVASTATIN CA 80 MG TABLET (FP) PO SCH ×2 (01:18→22:08)
[2017-03-28] MEDS: MUPIROCIN 2% TOPICAL OINTMENT FOR DECOLONIZATION NS SCH ×3 (01:18→22:08)
[2017-03-28] MEDS ORDERED: ALTEPLASE 50MG 25 MG in SODIUM CHLORIDE 250 ML IVPB ONE (03:15)
[2017-03-28] MEDS: ACETYLCYSTEINE 20% 200MG/ML 4 ML VIAL *FOR ORAL / INH USE ONLY PO SCH ×2 (05:38→06:30)
[2017-03-28] MEDS ORDERED: ACETYLCYSTEINE 20% 200MG/ML 30ML VIAL *FOR INJECTION USE ONLY IVPB SCH (06:00)
[2017-03-28 06:42] LABS: BASOPHIL 0.2 % (0-2.0); EOSINOPHIL 0.1 % (0-4.5); MCH 26.7 pg (25.7-33.7); MCHC 32.9 g/dl (32.0-36.0); MEAN PLT VOLUME 8.4 fl (7.5-11.1); NEUTROPHILS 85.2 % (42.8-82.8); PLATELET COUNT 212 K/MM3 (134-434); RDW 16.4 % (11.6-15.6)
[2017-03-28 06:48] LABS: INR 1.38 (0.82-1.09); PROTHROMBIN TIME (PATIENT) 15.6 SEC (9.98-11.88)
[2017-03-28 07:39] LABS: ANION GAP 8 (8-16); CALCIUM 8.1 mg/dL (8.5-10.1); CO2 26 mmol/L (21-32); CREATININE 0.9 mg/dL (0.55-1.02); GLUCOSE,RANDOM 123 mg/dL (74-106)
--- NOTE | 2017-03-28 07:45 | PN ---
Physical Exam: SUBJECTIVE: Patient seen and examined OBJECTIVE: Vital Signs Period Temp Pulse Resp BP Sys/Shields Pulse Ox Last 24 Hr 97.5 F-99 F 95-119 18-32 79-137/48-84 94-100 Intake & Output 03/25/17 03/26/17 03/27/17 03/28/17 23:59 23:59 23:59 23:59 Intake Total 1231 1692 Output Total 150 500 Balance 1081 1192 Weight 74.843 kg 96.479 kg GENERAL: The patient is awake, alert, and fully oriented, in no acute distress. HEAD: Normal with no signs of trauma. EYES: PERRL, extraocular movements intact, sclera anicteric, conjunctiva clear. No ptosis. ENT: Ears normal, nares patent, oropharynx clear without exudates, moist mucous membranes. NECK: Trachea midline, full range of motion, supple. LUNGS: Breath sounds equal, clear to auscultation bilaterally, no wheezes, no crackles, no accessory muscle use. HEART: Regular rate and rhythm, S1, S2 without murmur, rub or gallop. ABDOMEN: Soft, nontender, nondistended, normoactive bowel sounds, no guarding, no rebound, no hepatosplenomegaly, no masses. EXTREMITIES: 2+ pulses, warm, well-perfused, no edema. NEUROLOGICAL: Cranial nerves II through XII grossly intact. Normal speech, gait not observed. PSYCH: Normal mood, normal affect. SKIN: Warm, dry, normal turgor, no rashes or lesions noted Laboratory Results - last 24 hr CBC, BMP 03/28/17 05:10 03/27/17 03/27/17 03/27/17 03:45 03:58 06:30 WBC 17.0 H RBC 4.77 Hgb 12.7 Hct 39.7 MCV 83.2 MCH 26.7 MCHC 32.1 RDW 16.8 H Plt Count 213 MPV 8.1 Neutrophils % 87.1 H Lymphocytes % 7.8 L Monocytes % 4.9 Eosinophils % 0.0 D Basophils % 0.2 PT with INR INR PTT (Actin FS) Sodium Potassium Chloride Carbon Dioxide Anion Gap BUN Creatinine Random Glucose Hemoglobin A1c % Lactic Acid Calcium Phosphorus Magnesium Creatine Kinase Creatine Kinase Index CK-MB (CK-2) Troponin I B-Natriuretic Peptide Triglycerides Cholesterol Total LDL Cholesterol HDL Cholesterol Urine Color Ltyellow Urine Appearance Clear Urine pH 5.0 Ur Specific [place] 1.023 Urine Protein Negative Urine Glucose (UA) Negative Urine Ketones Negative Urine Blood Negative Urine Nitrite Negative Urine Bilirubin Negative Urine Urobilinogen Negative Ur Leukocyte Esterase Negative Ur Random Sodium Urine Creatinine 03/27/17 03/27/17 03/27/17 06:30 06:30 11:51 WBC RBC Hgb Hct MCV MCH MCHC RDW Plt Count MPV Neutrophils % Lymphocytes % Monocytes % Eosinophils % Basophils % PT with INR INR PTT (Actin FS) 26.1 L Sodium 143 Potassium 3.5 Chloride 106 Carbon Dioxide 29 Anion Gap 8 BUN 17 Creatinine 1.4 H Random Glucose 151 H Hemoglobin A1c % 6.1 H Lactic Acid Calcium 8.4 L Phosphorus 3.0 Magnesium 2.4 Creatine Kinase 132 Creatine Kinase Index CK-MB (CK-2) Troponin I 1.08 H* B-Natriuretic Peptide 5328.55 H Triglycerides 72 Cholesterol 158 Total LDL Cholesterol 97 HDL Cholesterol 40 Urine Color Urine Appearance Urine pH Ur Specific [place] Urine Protein Urine Glucose (UA) Urine Ketones Urine Blood Urine Nitrite Urine Bilirubin Urine Urobilinogen Ur Leukocyte Esterase Ur Random Sodium Urine Creatinine 03/27/17 03/27/17 03/27/17 12:35 19:05 19:45 WBC RBC Hgb Hct MCV MCH MCHC RDW Plt Count MPV Neutrophils % Lymphocytes % Monocytes % Eosinophils % Basophils % PT with INR INR PTT (Actin FS) Sodium Potassium Chloride Carbon Dioxide Anion Gap BUN Creatinine Random Glucose Hemoglobin A1c % Lactic Acid 2.8 H* Calcium Phosphorus Magnesium Creatine Kinase 145 151 Creatine Kinase Index 4.3 CK-MB (CK-2) 6.493 H Troponin I 1.43 H* 1.42 H* B-Natriuretic Peptide Triglycerides Cholesterol Total LDL Cholesterol HDL Cholesterol Urine Color Urine Appearance Urine pH Ur Specific [place] Urine Protein Urine Glucose (UA) Urine Ketones Urine Blood Urine Nitrite Urine Bilirubin Urine Urobilinogen Ur Leukocyte Esterase Ur Random Sodium Urine Creatinine 03/27/17 03/27/17 03/27/17 20:00 22:00 22:00 WBC RBC Hgb Hct MCV MCH MCHC RDW Plt Count MPV Neutrophils % Lymphocytes % Monocytes % Eosinophils % Basophils % PT with INR INR PTT (Actin FS) 102.1 H D Sodium Potassium Chloride Carbon Dioxide Anion Gap BUN Creatinine Random Glucose Hemoglobin A1c % Lactic Acid Calcium Phosphorus Magnesium Creatine Kinase Creatine Kinase Index CK-MB (CK-2) Troponin I B-Natriuretic Peptide Triglycerides Cholesterol Total LDL Cholesterol HDL Cholesterol Urine Color Urine Appearance Urine pH Ur Specific [place] Urine Protein Urine Glucose (UA) Urine Ketones Urine Blood Urine Nitrite Urine Bilirubin Urine Urobilinogen Ur Leukocyte Esterase Ur Random Sodium 22 Urine Creatinine 129.0 03/28/17 03/28/17 03/28/17 05:10 05:10 05:10 WBC 16.0 H RBC 4.52 Hgb 12.1 Hct 36.7 MCV 81.0 MCH 26.7 MCHC 32.9 RDW 16.4 H Plt Count 212 MPV 8.4 Neutrophils % 85.2 H Lymphocytes % 7.7 L Monocytes % 6.8 Eosinophils % 0.1 D Basophils % 0.2 PT with INR 15.60 H INR 1.38 H PTT (Actin FS) 82.4 H Sodium Potassium Chloride Carbon Dioxide Anion Gap BUN Creatinine Random Glucose Hemoglobin A1c % Lactic Acid Calcium Phosphorus Magnesium Creatine Kinase Creatine Kinase Index CK-MB (CK-2) Troponin I B-Natriuretic Peptide Triglycerides Cholesterol Total LDL Cholesterol HDL Cholesterol Urine Color Urine Appearance Urine pH Ur Specific [place] Urine Protein Urine Glucose (UA) Urine Ketones Urine Blood Urine Nitrite Urine Bilirubin Urine Urobilinogen Ur Leukocyte Esterase Ur Random Sodium Urine Creatinine Active Medications Generic Name Dose Route Start Last Admin Trade Name Freq PRN Reason Stop Dose Admin Acetylcysteine 1,200 mg 03/28/17 05:30 03/28/17 05:38 Mucomyst 20 Oral / Inh Use Only* PO 03/28/17 17:31 1,200 mg Q12H YESENIA Administration Aspirin 81 mg 03/28/17 10:00 Asa - PO DAILY YESENIA Atorvastatin Calcium 80 mg 03/27/17 22:00 03/28/17 01:18 Lipitor - PO Not Given HS YESENIA Chlorhexidine Gluconate 1 applic 03/27/17 22:00 03/28/17 01:18 Hibiclens For Decolonization - TP 1 applic HS YESENIA Administration Heparin Sodium (Porcine) 1,000 unit 03/27/17 16:40 Heparin - IVPUSH PRN PRN Heparin Heparin Sodium (Porcine) 5,000 unit 03/27/17 16:40 Heparin - IVPUSH PRN PRN Heparin Sodium Chloride 1,000 mls @ 100 mls/hr 03/27/17 15:30 03/27/17 16:00 Normal Saline - IV 100 mls/hr ASDIR YESENIA Administration Azithromycin 500 mg/ Dextrose 250 mls @ 250 mls/hr 03/28/17 10:00 IVPB DAILY YESENIA CEFTRIAXONE 1 G/50 ML PREMIX 50 mls @ 100 mls/hr 03/28/17 10:00 Ceftriaxone 1 Gm-D5w Bag IVPB DAILY YESENIA Heparin Sodium (Porcine) 25, 500 mls @ 27 mls/hr 03/27/17 16:40 03/27/17 22: 30 000 unit/ Sodium Chloride IV 1,200 unit/hr TITR YESENIA 24 mls/hr Protocol Titration 1,350 UNIT/HR Alteplase, Recombinant 25 mg/ 250 mls @ 15 mls/hr 03/28/17 03:15 03/27/17 23: 00 Sodium Chloride IVPB 03/28/17 19:54 15 mls/hr ONCE ONE Administration Mupirocin 1 applic 03/27/17 22:00 03/28/17 01:18 Bactroban Ointment (For Decolonization) - NS 04/01/17 21:59 Not Given BID [facility] Pantoprazole Sodium 40 mg 03/28/17 10:00 Protonix - PO DAILY [facility] No pending micro LE duplex 03/27 - IMPRESSION: 1. Occlusive deep vein thrombosis in the right popliteal vein as described above. 2. No evidence of left lower extremity deep vein thrombosis, as above. Chest CTA 03/27 - Nondiagnostic CTA due to early phase of image acquisition with contrast only present in the superior vena cava and right atrium. Cannot evaluate the thoracic aorta and cannot exclude pulmonary artery emboli. A repeat contrast enhanced CTA may be obtained, if clinically warranted. 2. Bilateral lower lobe consolidative opacities with air bronchograms representing pneumonia in the appropriate clinical setting. Please correlate for aspiration. Trace layering pleural effusions. 3. Multichamber cardiomegaly small pericardial effusion. 4. Mildly dilated main pulmonary artery measuring 32 mm in diameter. Please correlate clinically for pulmonary artery hypertension. 5. Cholelithiasis. Repeat Chest CTA 03/27 - 1. Multiple bilateral pulmonary embolisms w/ evidence of R heart strain ASSESSMENT/PLAN:
[2017-03-28 07:52] LABS: CPK 136 IU/L (26-192)
--- NOTE | 2017-03-28 08:46 | PN ---
Teaching Attending Note Name of Resident: Chavo Will ATTENDING PHYSICIAN STATEMENT I saw and evaluated the patient. I reviewed the resident's note and discussed the case with the resident. I agree with the resident's findings and plan as documented. SUBJECTIVE: Pt seen and examined in the ICU. Patient is feeling better, still having shortness of breath but less than yesterday. Patient is s/p catheter directed thrombolysis, Currently on alteplase infusion. Denies any chest pain. OBJECTIVE: Vital Signs Temperature 98.9 F 03/28/17 06:00 Pulse Rate 96 H 03/28/17 06:00 Respiratory Rate 26 H 03/28/17 06:00 Blood Pressure 133/74 03/28/17 06:00 O2 Sat by Pulse Oximetry (%) 94 L 03/27/17 22:45 CBCD WBC 16.0 K/mm3 (4.0-10.0) H 03/28/17 05:10 RBC 4.52 M/mm3 (3.60-5.2) 03/28/17 05:10 Hgb 12.1 GM/dL (10.7-15.3) 03/28/17 05:10 Hct 36.7 % (32.4-45.2) 03/28/17 05:10 MCV 81.0 fl (80-96) 03/28/17 05:10 MCHC 32.9 g/dl (32.0-36.0) 03/28/17 05:10 RDW 16.4 % (11.6-15.6) H 03/28/17 05:10 Plt Count 212 K/MM3 (134-434) 03/28/17 05:10 MPV 8.4 fl (7.5-11.1) 03/28/17 05:10 CMP Sodium 148 mmol/L (136-145) H 03/28/17 05:10 Potassium 3.7 mmol/L (3.5-5.1) 03/28/17 05:10 Chloride 114 mmol/L (98-107) H 03/28/17 05:10 Carbon Dioxide 26 mmol/L (21-32) 03/28/17 05:10 Anion Gap 8 (8-16) 03/28/17 05:10 BUN 14 mg/dL (7-18) 03/28/17 05:10 Creatinine 0.9 mg/dL (0.55-1.02) D 03/28/17 05:10 Creat Clearance w eGFR 38.49 (>60) 03/27/17 00:44 Random Glucose 123 mg/dL (74-106) H 03/28/17 05:10 Calcium 8.1 mg/dL (8.5-10.1) L 03/28/17 05:10 Total Bilirubin 0.6 mg/dL (0.2-1.0) 03/27/17 00:44 AST 30 U/L (15-37) 03/27/17 00:44 ALT 29 U/L (12-78) 03/27/17 00:44 Alkaline Phosphatase 67 U/L (45-117) 03/27/17 00:44 Total Protein 6.4 g/dl (6.4-8.2) 03/27/17 00:44 Albumin 2.5 g/dl (3.4-5.0) L 03/27/17 00:44 CARDIAC ENZYMES Creatine Kinase 136 IU/L (26-192) 03/28/17 05:10 Troponin I 1.42 ng/ml (0.00-0.05) H* 03/27/17 19:05 Current Medications Generic Name Dose Route Start Last Admin Trade Name Freq PRN Reason Stop Dose Admin Acetylcysteine 1,200 mg 03/28/17 05:30 03/28/17 05:38 Mucomyst 20 Oral / Inh Use Only* PO 03/28/17 17:31 1,200 mg Q12H YESENIA Administration Aspirin 81 mg 03/28/17 10:00 Asa - PO DAILY YESENIA Atorvastatin Calcium 80 mg 03/27/17 22:00 03/28/17 01:18 Lipitor - PO Not Given HS YESENIA Chlorhexidine Gluconate 1 applic 03/27/17 22:00 03/28/17 01:18 Hibiclens For Decolonization - TP 1 applic HS YESENIA Administration Heparin Sodium (Porcine) 1,000 unit 03/27/17 16:40 Heparin - IVPUSH PRN PRN Heparin Heparin Sodium (Porcine) 5,000 unit 03/27/17 16:40 Heparin - IVPUSH PRN PRN Heparin Sodium Chloride 1,000 mls @ 100 mls/hr 03/27/17 15:30 03/27/17 16:00 Normal Saline - IV 100 mls/hr ASDIR YESENIA Administration Azithromycin 500 mg/ Dextrose 250 mls @ 250 mls/hr 03/28/17 10:00 IVPB DAILY [facility] CEFTRIAXONE 1 G/50 ML PREMIX 50 mls @ 100 mls/hr 03/28/17 10:00 Ceftriaxone 1 Gm-D5w Bag IVPB DAILY [facility] Heparin Sodium (Porcine) 25, 500 mls @ 27 mls/hr 03/27/17 16:40 03/28/17 08: 05 000 unit/ Sodium Chloride IV 1,150 unit/hr TITR YESENIA 23 mls/hr Protocol Titration 1,350 UNIT/HR Alteplase, Recombinant 25 mg/ 250 mls @ 15 mls/hr 03/28/17 03:15 03/27/17 23: 00 Sodium Chloride IVPB 03/28/17 19:54 15 mls/hr ONCE ONE Administration Mupirocin 1 applic 03/27/17 22:00 03/28/17 01:18 Bactroban Ointment (For Decolonization) - NS 04/01/17 21:59 Not Given BID [facility] Pantoprazole Sodium 40 mg 03/28/17 10:00 Protonix - PO DAILY [facility] Home Medications Medication Instructions Recorded Aspirin [Neli Chewable] 81 mg PO DAILY 03/27/17 Atorvastatin Ca [Lipitor] 80 mg PO HS 03/27/17 Hydrochlorothiazide [Hctz -] 25 mg PO DAILY 03/27/17 Lisinopril [Prinivil] 20 mg PO DAILY 03/27/17 Metoprolol Tartrate 25 mg PO BID 03/27/17 Pantoprazole Sodium 40 mg PO DAILY 03/27/17 NAD, AAOx3 . comfortable on breathing mask HEENT: Moist MM. JVD . CV: Regular rhythm, rate of 96. no murmur appreciated. Lungs: CTA BL Abd: soft, Nt, ND ,positive BS Ext: no edema , tenderness to palpation on L navarrete . DP 2+ b/l . Neuro: alert , awake. Cn 2-12 grossly intact Assessment/Plan: Patient is a 57 y/o pleasant lady with h/o HTN, HLP, CAD s/p stents placed 2 yrs ago, and recent treatment for CAP ( , and 2 weeks) # Acute Massive PE BL s/p catheter directed thrombolysis, RLE DVT. continue thrombolysis # Elevated Troponins most likely due to PE (heart strain on ECho). Doubt NSTEMI on alteplase thrombolysis, cardio on the case. On statins 80mg continue #Acute hypoxic resp failure improving due to BL PE. # Positive Infiltrate on CT doubt Pneumonia ,Most likely pulmonary infarct. will continue IV Abx to one more day and will reevaluate the patient. Discussed with ICU attending . # Syncope : due to PE # H/O HTN: will continue her Lopressor as per , MEds were confirmed by her and was updated in EMR .
[2017-03-28] MEDS ORDERED: PT OWN MED DRAWER 7, Y5N ONE (08:49)
[2017-03-28 09:28] LABS: TROPONIN I 2.07 ng/ml (0.00-0.05)
[2017-03-28] MEDS ORDERED: ACETAMINOPHEN 1000 MG/100 ML VIAL (NON FORMULARY) IVPB ONE (09:33)
[2017-03-28 09:57] LABS: URINE LEUK ESTERASE Negative (NEGATIVE)
[2017-03-28] MEDS: ASPIRIN 81 MG CHEWABLE TABLETS PO SCH (10:04)
[2017-03-28] MEDS: SODIUM CHLORIDE 1,000 ML IV SCH ×2 (10:04→22:09)
[2017-03-28] MEDS: PANTOPRAZOLE 40 MG TABLET (FP) PO SCH (10:04)
[2017-03-28] MEDS: CEFTRIAXONE 1 G/50 ML PREMIX 50 ML IVPB SCH (10:05)
[2017-03-28] MEDS: HEPARIN - 25,000 UNIT in SODIUM CHLORIDE 495 ML IV SCH ×2 (10:51→16:30)
[2017-03-28] MEDS: AZITHROMYCIN IVPB 500 MG in DEXTROSE 5%-WATER - 250 ML IVPB SCH (11:33)
[2017-03-28 11:41] LABS: URINE CALCIUM < 2.0 mg/dl
--- NOTE | 2017-03-28 12:31 | CON.CARD ---
Cardiology Consult (text) - Consultation Consultation Note: s: less sob, no cp. no palps dizzy. had ir thrombolysis yesterday. Current Medications Generic Name Dose Route Start Last Admin Trade Name Kelvin PRN Reason Stop Dose Admin Acetylcysteine 1,200 mg 03/28/17 05:30 03/28/17 05:38 Mucomyst 20 Oral / Inh Use Only* PO 03/28/17 17:31 1,200 mg Q12H YESENIA Administration Aspirin 81 mg 03/28/17 10:00 03/28/17 10:04 Asa - PO 81 mg DAILY YESENIA Administration Atorvastatin Calcium 80 mg 03/27/17 22:00 03/28/17 01:18 Lipitor - PO Not Given HS YESENIA Chlorhexidine Gluconate 1 applic 03/27/17 22:00 03/28/17 01:18 Hibiclens For Decolonization - TP 1 applic HS YESENIA Administration Heparin Sodium (Porcine) 1,000 unit 03/27/17 16:40 Heparin - IVPUSH PRN PRN Heparin Heparin Sodium (Porcine) 5,000 unit 03/27/17 16:40 Heparin - IVPUSH PRN PRN Heparin Sodium Chloride 1,000 mls @ 100 mls/hr 03/27/17 15:30 03/28/17 10:04 Normal Saline - IV 100 mls/hr ASDIR YESENIA Administration Azithromycin 500 mg/ Dextrose 250 mls @ 250 mls/hr 03/28/17 10:00 03/28/17 11 :33 IVPB 250 mls/hr DAILY YESENIA Administration CEFTRIAXONE 1 G/50 ML PREMIX 50 mls @ 100 mls/hr 03/28/17 10:00 03/28/17 10: 05 Ceftriaxone 1 Gm-D5w Bag IVPB 100 mls/hr DAILY YESENIA Administration Heparin Sodium (Porcine) 25, 500 mls @ 27 mls/hr 03/27/17 16:40 03/28/17 10: 51 000 unit/ Sodium Chloride IV 1,150 unit/hr TITR YESENIA 23 mls/hr Protocol Administration 1,350 UNIT/HR Alteplase, Recombinant 25 mg/ 250 mls @ 15 mls/hr 03/28/17 03:15 03/27/17 23: 00 Sodium Chloride IVPB 03/28/17 19:54 15 mls/hr ONCE ONE Administration Mupirocin 1 applic 03/27/17 22:00 03/28/17 10:05 Bactroban Ointment (For Decolonization) - NS 04/01/17 21:59 1 applic BID YESENIA Administration Pantoprazole Sodium 40 mg 03/28/17 10:00 03/28/17 10:04 Protonix - PO 40 mg DAILY YESENIA Administration o: Vital Signs Temp 99.7 F H 03/28/17 11:38 Pulse 92 H 03/28/17 11:38 Resp 18 03/28/17 11:38 BP 106/63 03/28/17 11:38 Pulse Ox 94 L 03/28/17 10:06 Intake & Output 03/27/17 03/28/17 03/28/17 23:59 11:59 23:59 Intake Total 1231 1692 Output Total 150 500 Balance 1081 1192 Weight 212 lb 11.2 oz Intake: IV 1231 1212 Heparin - 25,000 Unit In 81 292 Normal Saline - 495 ml @ 1,350 UNIT/HR 27 mls/hr IV TITR YESENIA Rx#: [id number] Normal Saline - 1,000 ml 650 800 @ 100 mls/hr IV ASDIR YESENIA Rx#:[id number] Normal Saline - 500 ml @ 500 500 mls/hr IV ASDIR STA Rx#:[id number] altepase 120 Oral 0 480 Output: Urine 150 500 Vences 500 Void 150 Other: Voiding Method Bedpan Indwelling Catheter # Unmeasured Voids Vences 500 Void 1 Bowel Movement No No Weight Measurement Method Built in Bedscale nad, calm jvd flat, neck supple ctab, nl effort tachycardic, regular nl s1, s2 no mrg + bs soft nt nd ext without e/c/c + dp/pt aaox3 no jaundice, diaphoresis Laboratory Last Values WBC 16.0 K/mm3 (4.0-10.0) H 03/28/17 05:10 RBC 4.52 M/mm3 (3.60-5.2) 03/28/17 05:10 Hgb 12.1 GM/dL (10.7-15.3) 03/28/17 05:10 Hct 36.7 % (32.4-45.2) 03/28/17 05:10 MCV 81.0 fl (80-96) 03/28/17 05:10 MCH 26.7 pg (25.7-33.7) 03/28/17 05:10 MCHC 32.9 g/dl (32.0-36.0) 03/28/17 05:10 RDW 16.4 % (11.6-15.6) H 03/28/17 05:10 Plt Count 212 K/MM3 (134-434) 03/28/17 05:10 MPV 8.4 fl (7.5-11.1) 03/28/17 05:10 Neutrophils % 85.2 % (42.8-82.8) H 03/28/17 05:10 Lymphocytes % 7.7 % (8-40) L 03/28/17 05:10 Monocytes % 6.8 % (3.8-10.2) 03/28/17 05:10 Eosinophils % 0.1 % (0-4.5) D 03/28/17 05:10 Basophils % 0.2 % (0-2.0) 03/28/17 05:10 PT with INR 15.60 SEC (9.98-11.88) H 03/28/17 05:10 INR 1.38 (0.82-1.09) H 03/28/17 05:10 PTT (Actin FS) 82.4 SECONDS (26.9-34.4) H 03/28/17 05:10 Sodium 148 mmol/L (136-145) H 03/28/17 05:10 Potassium 3.7 mmol/L (3.5-5.1) 03/28/17 05:10 Chloride 114 mmol/L (98-107) H 03/28/17 05:10 Carbon Dioxide 26 mmol/L (21-32) 03/28/17 05:10 Anion Gap 8 (8-16) 03/28/17 05:10 BUN 14 mg/dL (7-18) 03/28/17 05:10 Creatinine 0.9 mg/dL (0.55-1.02) D 03/28/17 05:10 Creat Clearance w eGFR 38.49 (>60) 03/27/17 00:44 Random Glucose 123 mg/dL (74-106) H 03/28/17 05:10 Hemoglobin A1c % 6.1 % (4.8-6.0) H 03/27/17 06:30 Lactic Acid 2.8 mmol/L (0.4-2.0) H* 03/27/17 19:45 Calcium 8.1 mg/dL (8.5-10.1) L 03/28/17 05:10 Phosphorus 3.0 mg/dL (2.5-4.9) 03/27/17 06:30 Magnesium 2.4 mg/dL (1.8-2.4) 03/27/17 06:30 Total Bilirubin 0.6 mg/dL (0.2-1.0) 03/27/17 00:44 AST 30 U/L (15-37) 03/27/17 00:44 ALT 29 U/L (12-78) 03/27/17 00:44 Alkaline Phosphatase 67 U/L (45-117) 03/27/17 00:44 Creatine Kinase 136 IU/L (26-192) 03/28/17 05:10 Creatine Kinase Index 4.3 % (0.0-5.0) 03/27/17 19:05 CK-MB (CK-2) 6.493 ng/mL (0.5-3.6) H 03/27/17 19:05 Troponin I 2.07 ng/ml (0.00-0.05) H* 03/28/17 05:10 B-Natriuretic Peptide 5328.55 pg/ml (5-125) H 03/27/17 06:30 Total Protein 6.4 g/dl (6.4-8.2) 03/27/17 00:44 Albumin 2.5 g/dl (3.4-5.0) L 03/27/17 00:44 Triglycerides 72 mg/dL (35-160) 03/27/17 06:30 Cholesterol 158 mg/dL (50-200) 03/27/17 06:30 Total LDL Cholesterol 97 mg/dL (5-100) 03/27/17 06:30 HDL Cholesterol 40 mg/dL (40-60) 03/27/17 06:30 Urine Color Ltyellow 03/27/17 03:58 Urine Appearance Clear 03/27/17 03:58 Urine pH 5.0 (5.0-8.0) 03/27/17 03:58 Ur Specific [place] 1.023 (1.001-1.035) 03/27/17 03:58 Urine Protein Negative (NEGATIVE) 03/27/17 03:58 Urine Glucose (UA) Negative (NEGATIVE) 03/27/17 03:58 Urine Ketones Negative (NEGATIVE) 03/27/17 03:58 Urine Blood Negative (NEGATIVE) 03/27/17 03:58 Urine Nitrite Negative (NEGATIVE) 03/27/17 03:58 Urine Bilirubin Negative (NEGATIVE) 03/27/17 03:58 Urine Urobilinogen Negative mg/dL (0.2-1.0) 03/27/17 03:58 Ur Leukocyte Esterase Negative (NEGATIVE) 03/27/17 03:58 Ur Random Sodium 22 MMOL/L 03/27/17 22:00 Urine Creatinine 129.0 mg/dL (20-320) 03/27/17 22:00 Urine Calcium < 2.0 mg/dl 03/27/17 03:58 EKG: sinus tach. septal infarct. non-specific t wave ab tele: sinus tach/sr echo: nl lv size/fn. RV dilation and decreased function with concern for right heart strain. see emr for full report chest cta: large bl pe's est cct 35 mins a/p: 57 year old with h/o HTN, HLD, and CAD (s/p stent placement 2 years prior) presents with syncope, persistent hypoxia, hypotension now with new dx of dvt and concern for PE. right heart strain with new dvt and b/l pe's. - large bl pe's on cta, s/p ir directed thrombolysis and plans for ivc filter today for large dvt - Echo findings c/w for PE with right heart strain, no rhf currently. - cont icu monitoring cad s/p remote pci, pos trops - mild troponin elevation in setting of normal CK. Likely demand in setting of underlying heart disease. Cont to trend trop until peaks. HTN - [id number] while patient hypotensive. possible pna - on abx
--- NOTE | 2017-03-28 13:08 | PN ---
Teaching Attending Note Name of Resident: Catrachito Tolliver ATTENDING PHYSICIAN STATEMENT I saw and evaluated the patient. I reviewed the resident's note and discussed the case with the resident. I agree with the resident's findings and plan as documented. SUBJECTIVE: Pt seen and examined in the ICU. s/p catheter directed thrombolysis, alteplase currently infusing. Dyspnea improving. No chest pain. OBJECTIVE: Last Vital Signs Temp Pulse Resp BP Pulse Ox 99.7 F H 92 H 18 106/63 94 L 03/28/17 11:38 03/28/17 11:38 03/28/17 11:38 03/28/17 11:38 03/28/17 10:06 Intake & Output 03/25/17 03/26/17 03/27/17 03/28/17 23:59 23:59 23:59 23:59 Intake Total 1231 1692 Output Total 150 500 Balance 1081 1192 Weight 165 lb 212 lb 11.2 oz Gen: somnolent but arousable Heart: RRR Lung: decreased breath sounds at the bases Abd: soft, nontender Ext: no edema CBC, BMP 03/28/17 05:10 03/28/17 05:10 Active Medications Acetylcysteine (Mucomyst 20 Oral / Inh Use Only*) 1,200 mg PO Q12H [facility] Stop: 03/28/17 17:31 Last Admin: 03/28/17 05:38 Dose: 1,200 mg Aspirin (Asa -) 81 mg PO DAILY [facility] Last Admin: 03/28/17 10:04 Dose: 81 mg Atorvastatin Calcium (Lipitor -) 80 mg PO HS [facility] Last Admin: 03/28/17 01:18 Dose: Not Given Chlorhexidine Gluconate (Hibiclens For Decolonization -) 1 applic TP HS [facility] Last Admin: 03/28/17 01:18 Dose: 1 applic Heparin Sodium (Porcine) (Heparin -) 1,000 unit IVPUSH PRN PRN PRN Reason: Heparin Heparin Sodium (Porcine) (Heparin -) 5,000 unit IVPUSH PRN PRN PRN Reason: Heparin Sodium Chloride (Normal Saline -) 1,000 mls @ 100 mls/hr IV ASDIR [facility] Last Admin: 03/28/17 10:04 Dose: 100 mls/hr Azithromycin 500 mg/ Dextrose 250 mls @ 250 mls/hr IVPB DAILY [facility] Last Admin: 03/28/17 11:33 Dose: 250 mls/hr CEFTRIAXONE 1 G/50 ML PREMIX (Ceftriaxone 1 Gm-D5w Bag) 50 mls @ 100 mls/hr IVPB DAILY [facility] Last Admin: 03/28/17 10:05 Dose: 100 mls/hr Heparin Sodium (Porcine) 25, (000 unit/ Sodium Chloride) 500 mls @ 27 mls/hr IV TITR YESENIA; 1,350 UNIT/HR PRN Reason: Protocol Last Admin: 03/28/17 10:51 Dose: 1,150 unit/hr, 23 mls/hr Alteplase, Recombinant 25 mg/ (Sodium Chloride) 250 mls @ 15 mls/hr IVPB ONCE ONE Stop: 03/28/17 19:54 Last Admin: 03/27/17 23:00 Dose: 15 mls/hr Mupirocin (Bactroban Ointment (For Decolonization) -) 1 applic NS BID [facility] Stop: 04/01/17 21:59 Last Admin: 03/28/17 10:05 Dose: 1 applic Pantoprazole Sodium (Protonix -) 40 mg PO DAILY [facility] Last Admin: 03/28/17 10:04 Dose: 40 mg ASSESSMENT AND PLAN: Massive Acute Pulmonary Emboli s/p catheter directed thrombolysis R DVT Lung infiltrate likely pulmonary infarct +Troponins - continue thrombolysis - continue anticoagulation - O2 to keep SpO2 >90% - IVF - on empiric antibiotics - trend cardiac enzymes to document peak - continue ICU monitoring critical care time spent in reviewing chart, evaluating patient and formulating plan 35 min
--- NOTE | 2017-03-28 15:05 | PN ---
Physical Exam: SUBJECTIVE: The patient is a 57F with a PMH of HTN, HLD, CAD s/p stent placement 2 years ago who presented with worsening SOB and syncopal episode. The patient was found to have multiple PE's. Overnight the patient became hemodynamically unstable and had a catheter- directed TPA. She is currently on TPA. No acute complaints today. The patient states she is feeling better. OBJECTIVE: Vital Signs Period Temp Pulse Resp BP Sys/Shields Pulse Ox Last 24 Hr 97.5 F-100.4 F 92-119 18-32 88-137/53-84 94-100 GENERAL: The patient is awake, alert, and fully oriented, in no acute distress. HEAD: Normal with no signs of trauma. EYES: PERRL, extraocular movements intact, sclera anicteric, conjunctiva clear. No ptosis. NECK: Trachea midline, full range of motion, supple. LUNGS: Breath sounds equal, clear to auscultation bilaterally, no wheezes, no crackles, no accessory muscle use. HEART: Regular rate and rhythm, S1, S2 without murmur, rub or gallop. ABDOMEN: Soft, nontender, nondistended, normoactive bowel sounds, no guarding, no rebound, no hepatosplenomegaly, no masses. EXTREMITIES: 2+ pulses, warm, well-perfused, no edema. NEUROLOGICAL: Cranial nerves II through XII grossly intact. Normal speech, gait not observed. PSYCH: Normal mood, normal affect. SKIN: Warm, dry, normal turgor, no rashes or lesions noted Laboratory Results - last 24 hr 03/27/17 03/27/17 03/27/17 03:58 03:58 19:05 WBC RBC Hgb Hct MCV MCH MCHC RDW Plt Count MPV Neutrophils % Lymphocytes % Monocytes % Eosinophils % Basophils % PT with INR INR PTT (Actin FS) Sodium Potassium Chloride Carbon Dioxide Anion Gap BUN Creatinine Random Glucose Lactic Acid Calcium Creatine Kinase 151 Creatine Kinase Index 4.3 CK-MB (CK-2) 6.493 H Troponin I 1.42 H* Urine Color Ltyellow Urine Appearance Clear Urine pH 5.0 Ur Specific [place] 1.023 Urine Protein Negative Urine Glucose (UA) Negative Urine Ketones Negative Urine Blood Negative Urine Nitrite Negative Urine Bilirubin Negative Urine Urobilinogen Negative Ur Leukocyte Esterase Negative Ur Random Sodium Urine Creatinine Urine Calcium < 2.0 03/27/17 03/27/17 03/27/17 19:45 20:00 22:00 WBC RBC Hgb Hct MCV MCH MCHC RDW Plt Count MPV Neutrophils % Lymphocytes % Monocytes % Eosinophils % Basophils % PT with INR INR PTT (Actin FS) 102.1 H D Sodium Potassium Chloride Carbon Dioxide Anion Gap BUN Creatinine Random Glucose Lactic Acid 2.8 H* Calcium Creatine Kinase Creatine Kinase Index CK-MB (CK-2) Troponin I Urine Color Urine Appearance Urine pH Ur Specific [place] Urine Protein Urine Glucose (UA) Urine Ketones Urine Blood Urine Nitrite Urine Bilirubin Urine Urobilinogen Ur Leukocyte Esterase Ur Random Sodium 22 Urine Creatinine Urine Calcium 03/27/17 03/28/17 03/28/17 22:00 05:10 05:10 WBC 16.0 H RBC 4.52 Hgb 12.1 Hct 36.7 MCV 81.0 MCH 26.7 MCHC 32.9 RDW 16.4 H Plt Count 212 MPV 8.4 Neutrophils % 85.2 H Lymphocytes % 7.7 L Monocytes % 6.8 Eosinophils % 0.1 D Basophils % 0.2 PT with INR INR PTT (Actin FS) Sodium 148 H Potassium 3.7 Chloride 114 H Carbon Dioxide 26 Anion Gap 8 BUN 14 Creatinine 0.9 D Random Glucose 123 H Lactic Acid Calcium 8.1 L Creatine Kinase 136 Creatine Kinase Index CK-MB (CK-2) Troponin I 2.07 H* Urine Color Urine Appearance Urine pH Ur Specific [place] Urine Protein Urine Glucose (UA) Urine Ketones Urine Blood Urine Nitrite Urine Bilirubin Urine Urobilinogen Ur Leukocyte Esterase Ur Random Sodium Urine Creatinine 129.0 Urine Calcium 03/28/17 03/28/17 05:10 05:10 WBC RBC Hgb Hct MCV MCH MCHC RDW Plt Count MPV Neutrophils % Lymphocytes % Monocytes % Eosinophils % Basophils % PT with INR 15.60 H INR 1.38 H PTT (Actin FS) 82.4 H Sodium Potassium Chloride Carbon Dioxide Anion Gap BUN Creatinine Random Glucose Lactic Acid Calcium Creatine Kinase Creatine Kinase Index CK-MB (CK-2) Troponin I Urine Color Urine Appearance Urine pH Ur Specific [place] Urine Protein Urine Glucose (UA) Urine Ketones Urine Blood Urine Nitrite Urine Bilirubin Urine Urobilinogen Ur Leukocyte Esterase Ur Random Sodium Urine Creatinine Urine Calcium Active Medications Generic Name Dose Route Start Last Admin Trade Name Freq PRN Reason Stop Dose Admin Acetylcysteine 1,200 mg 03/28/17 05:30 03/28/17 05:38 Mucomyst 20 Oral / Inh Use Only* PO 03/28/17 17:31 1,200 mg Q12H YESENIA Administration Aspirin 81 mg 03/28/17 10:00 03/28/17 10:04 Asa - PO 81 mg DAILY YESENIA Administration Atorvastatin Calcium 80 mg 03/27/17 22:00 03/28/17 01:18 Lipitor - PO Not Given HS YESENIA Chlorhexidine Gluconate 1 applic 03/27/17 22:00 03/28/17 01:18 Hibiclens For Decolonization - TP 1 applic HS YESENIA Administration Heparin Sodium (Porcine) 1,000 unit 03/27/17 16:40 Heparin - IVPUSH PRN PRN Heparin Heparin Sodium (Porcine) 5,000 unit 03/27/17 16:40 Heparin - IVPUSH PRN PRN Heparin Sodium Chloride 1,000 mls @ 100 mls/hr 03/27/17 15:30 03/28/17 10:04 Normal Saline - IV 100 mls/hr ASDIR YESENIA Administration Azithromycin 500 mg/ Dextrose 250 mls @ 250 mls/hr 03/28/17 10:00 03/28/17 11 :33 IVPB 250 mls/hr DAILY YESENIA Administration CEFTRIAXONE 1 G/50 ML PREMIX 50 mls @ 100 mls/hr 03/28/17 10:00 03/28/17 10: 05 Ceftriaxone 1 Gm-D5w Bag IVPB 100 mls/hr DAILY YESENIA Administration Heparin Sodium (Porcine) 25, 500 mls @ 27 mls/hr 03/27/17 16:40 03/28/17 10: 51 000 unit/ Sodium Chloride IV 1,150 unit/hr TITR YESENIA 23 mls/hr Protocol Administration 1,350 UNIT/HR Alteplase, Recombinant 25 mg/ 250 mls @ 15 mls/hr 03/28/17 03:15 03/27/17 23: 00 Sodium Chloride IVPB 03/28/17 19:54 15 mls/hr ONCE ONE Administration Mupirocin 1 applic 03/27/17 22:00 03/28/17 10:05 Bactroban Ointment (For Decolonization) - NS 04/01/17 21:59 1 applic BID YESENIA Administration Pantoprazole Sodium 40 mg 03/28/17 10:00 03/28/17 10:04 Protonix - PO 40 mg DAILY YESENIA Administration ASSESSMENT/PLAN: The patient is a 57F with a PMH of HTN, HLD, CAD s/p stents who presents with multiple PE's s/p catheter directed TPA, currently on TPA drip. Neuro: - A&Ox3 - At baseline CV: HTN - Continue home medications (HCTZ, toprol, lisinopril) - Monitor echo for hemodynamic instability - Carefully watch I/O's - Trend cardiac profile Pulm: Multiple PE's - Currently on TPA drip - S/p cath-directed TPA Renal: MARCO - Resolved; current BUN/Cr 14/0.9 : - None GI: - None ID: - None Hem/Onc: - None Endocrine: - None MSK: - None PPX: - None FEN (Fluids, electrolytes, nutrition): - NPO Dispo: - Monitor closely in ICU 06/06 TPA Visit type - Emergency Visit Emergency Visit: Yes ED Registration Date: 03/27/17 Care time: The patient presented to the Emergency Department on the above date and was hospitalized for further evaluation of their emergent condition. - New Patient This patient is new to me today: Yes Date on this admission: 04/01/17 - Critical Care Critical Care patient: Yes Total Critical Care Time (in minutes): 50 Critical Care Statement: The care of this patient involved high complexity decision making to prevent further life threatening deterioration of the patient 's condition and/or to evaluate & treat vital organ system(s) failure or risk of failure.
--- NOTE | 2017-03-28 16:15 | PN ---
Physical Exam: SUBJECTIVE: 57 yo woman w/ pmh of HTN, HLD and CAD who presented with a syncopal episode, SOB, N/V, found to be persistently hypoxic/hypotensive in ED, now with CTA confirmed BL PEs s/p IR-guided thrombectomy and tPA-infusion. Patient seen and examined by me this AM - Endorses mild improvement in SOB at rest, however becomes dysneic upon moving. Per nursing, pt has tendency to desat when she moves a signficant amount. Endorses pain in back and left side with moderate to deep inspiration. - Denies any palpitations, PALOMINO/dizziness, fevers/chills, cough, N/V, abdominal pain, dysuria, diarrhea/constipation. Endorses BL leg swelling. - Pt emotional during interview. PM: - Called to consent patient for angiogram and IVC filter placement. Pt hesitant and called nephew, who is a physician, for further advice. Pt's nephew was advised about indication for IVC filter given residual clot in R popliteal vein and prior issues w/ anticoagulation (bruising on plavix). Pt and nephew each informed of risk of not placing filter, including possible additional future PE , extension of clot in R leg, but refused IVC filter placement, opting only for the angiogram. OBJECTIVE: Vital Signs Period Temp Pulse Resp BP Sys/Shields Pulse Ox Last 24 Hr 97.5 F-100.4 F 92-119 16-32 88-141/53-84 94-100 GENERAL: Patient is A&Ox3. Lying in bed, w/ catheter in R IJ. Pt slightly HEAD: Normal with no signs of trauma. On NRB EYES: PERRL, extraocular movements intact, conjunctiva clear. No ptosis. ENT: Ears normal, nares patent, oropharynx clear without exudates, moist mucous membranes. NECK: Trachea midline, full range of motion, supple. No JVD noted. LUNGS: Breath sounds equal, decreased at bases. No wheezes, no crackles, no accessory muscle use. HEART: Regular rate and rhythm, S1, S2. S3 noted. No other murmur, rub or gallop appreciated. ABDOMEN: Soft, nontender, nondistended, normoactive bowel sounds, no guarding, no rebound. Upper EXTREMITIES: 2+ pulses, warm, well-perfused, no edema. Lower extremities: 2+ DP, PT pulses bilaterally. 1+ nonpitting edema on LL leg, 2+ [employer]UCK[employer] edema on R leg. Warm to touch. NEUROLOGICAL: Cranial nerves II through XII grossly intact. Normal speech, gait not observed. PSYCH: Tearful. Interactive w/ interviewer Laboratory Results - last 24 hr 03/27/17 03/27/17 03/27/17 03:58 03:58 19:05 WBC RBC Hgb Hct MCV MCH MCHC RDW Plt Count MPV Neutrophils % Lymphocytes % Monocytes % Eosinophils % Basophils % PT with INR INR PTT (Actin FS) Sodium Potassium Chloride Carbon Dioxide Anion Gap BUN Creatinine Random Glucose Lactic Acid Calcium Creatine Kinase 151 Creatine Kinase Index 4.3 CK-MB (CK-2) 6.493 H Troponin I 1.42 H* Urine Color Ltyellow Urine Appearance Clear Urine pH 5.0 Ur Specific [place] 1.023 Urine Protein Negative Urine Glucose (UA) Negative Urine Ketones Negative Urine Blood Negative Urine Nitrite Negative Urine Bilirubin Negative Urine Urobilinogen Negative Ur Leukocyte Esterase Negative Ur Random Sodium Urine Creatinine Urine Calcium < 2.0 03/27/17 03/27/17 03/27/17 19:45 20:00 22:00 WBC RBC Hgb Hct MCV MCH MCHC RDW Plt Count MPV Neutrophils % Lymphocytes % Monocytes % Eosinophils % Basophils % PT with INR INR PTT (Actin FS) 102.1 H D Sodium Potassium Chloride Carbon Dioxide Anion Gap BUN Creatinine Random Glucose Lactic Acid 2.8 H* Calcium Creatine Kinase Creatine Kinase Index CK-MB (CK-2) Troponin I Urine Color Urine Appearance Urine pH Ur Specific [place] Urine Protein Urine Glucose (UA) Urine Ketones Urine Blood Urine Nitrite Urine Bilirubin Urine Urobilinogen Ur Leukocyte Esterase Ur Random Sodium 22 Urine Creatinine Urine Calcium 03/27/17 03/28/17 03/28/17 22:00 05:10 05:10 WBC 16.0 H RBC 4.52 Hgb 12.1 Hct 36.7 MCV 81.0 MCH 26.7 MCHC 32.9 RDW 16.4 H Plt Count 212 MPV 8.4 Neutrophils % 85.2 H Lymphocytes % 7.7 L Monocytes % 6.8 Eosinophils % 0.1 D Basophils % 0.2 PT with INR INR PTT (Actin FS) Sodium 148 H Potassium 3.7 Chloride 114 H Carbon Dioxide 26 Anion Gap 8 BUN 14 Creatinine 0.9 D Random Glucose 123 H Lactic Acid Calcium 8.1 L Creatine Kinase 136 Creatine Kinase Index CK-MB (CK-2) Troponin I 2.07 H* Urine Color Urine Appearance Urine pH Ur Specific [place] Urine Protein Urine Glucose (UA) Urine Ketones Urine Blood Urine Nitrite Urine Bilirubin Urine Urobilinogen Ur Leukocyte Esterase Ur Random Sodium Urine Creatinine 129.0 Urine Calcium 03/28/17 03/28/17 05:10 05:10 WBC RBC Hgb Hct MCV MCH MCHC RDW Plt Count MPV Neutrophils % Lymphocytes % Monocytes % Eosinophils % Basophils % PT with INR 15.60 H INR 1.38 H PTT (Actin FS) 82.4 H Sodium Potassium Chloride Carbon Dioxide Anion Gap BUN Creatinine Random Glucose Lactic Acid Calcium Creatine Kinase Creatine Kinase Index CK-MB (CK-2) Troponin I Urine Color Urine Appearance Urine pH Ur Specific [place] Urine Protein Urine Glucose (UA) Urine Ketones Urine Blood Urine Nitrite Urine Bilirubin Urine Urobilinogen Ur Leukocyte Esterase Ur Random Sodium Urine Creatinine Urine Calcium Active Medications Generic Name Dose Route Start Last Admin Trade Name Freq PRN Reason Stop Dose Admin Acetylcysteine 1,200 mg 03/28/17 05:30 03/28/17 05:38 Mucomyst 20 Oral / Inh Use Only* PO 03/28/17 17:31 1,200 mg Q12H YESENIA Administration Aspirin 81 mg 03/28/17 10:00 03/28/17 10:04 Asa - PO 81 mg DAILY YESENIA Administration Atorvastatin Calcium 80 mg 03/27/17 22:00 03/28/17 01:18 Lipitor - PO Not Given HS YESENIA Chlorhexidine Gluconate 1 applic 03/27/17 22:00 03/28/17 01:18 Hibiclens For Decolonization - TP 1 applic HS YESENIA Administration Heparin Sodium (Porcine) 1,000 unit 03/27/17 16:40 Heparin - IVPUSH PRN PRN Heparin Heparin Sodium (Porcine) 5,000 unit 03/27/17 16:40 Heparin - IVPUSH PRN PRN Heparin Sodium Chloride 1,000 mls @ 100 mls/hr 03/27/17 15:30 03/28/17 10:04 Normal Saline - IV 100 mls/hr ASDIR YESENIA Administration Azithromycin 500 mg/ Dextrose 250 mls @ 250 mls/hr 03/28/17 10:00 03/28/17 11 :33 IVPB 250 mls/hr DAILY YESENIA Administration CEFTRIAXONE 1 G/50 ML PREMIX 50 mls @ 100 mls/hr 03/28/17 10:00 03/28/17 10: 05 Ceftriaxone 1 Gm-D5w Bag IVPB 100 mls/hr DAILY YESENIA Administration Heparin Sodium (Porcine) 25, 500 mls @ 27 mls/hr 03/27/17 16:40 03/28/17 10: 51 000 unit/ Sodium Chloride IV 1,150 unit/hr TITR YESENIA 23 mls/hr Protocol Administration 1,350 UNIT/HR Alteplase, Recombinant 25 mg/ 250 mls @ 15 mls/hr 03/28/17 03:15 03/27/17 23: 00 Sodium Chloride IVPB 03/28/17 19:54 15 mls/hr ONCE ONE Administration Mupirocin 1 applic 03/27/17 22:00 03/28/17 10:05 Bactroban Ointment (For Decolonization) - NS 04/01/17 21:59 1 applic BID YESENIA Administration Pantoprazole Sodium 40 mg 03/28/17 10:00 03/28/17 10:04 Protonix - PO 40 mg DAILY YESENIA Administration No pending micro Relevent Imaging - 03/27 carotid doppler - No hemodynamically significant plaque or stenosis 03/27 PM CTA (repeat, due to technical limitations in AM CTA) - 1. Large, bilateral pulmonary emboli. 2. Consolidation/atelectasis at both lung bases, left greater than right. 3. Trace pericardial effusion. 4. Cholelithiasis. Please see above discussion. 03/27 AM CXR - Imaging reveals a weak inspiration with large heart, unfolded aorta, congestive changes and left base infiltrate. Follow-up recommended. 03/27 BL LE Duplex - 1. Occlusive deep vein thrombosis in the right popliteal vein as described above. 2. No evidence of left lower extremity deep vein thrombosis, as above. ASSESSMENT/PLAN: 57 yo woman w/ pmh of HTN, HLD and CAD who presented with a syncopal episode, SOB, N/V, found to be persistently hypoxic/hypotensive in ED, now with CTA confirmed BL PEs s/p IR-guided thrombectomy and tPA-infusion. Pt hemodynamically stable, receiving tPA-infusion and heparin gtt with improvement in SOB, hypoxia. 1. Bilateral pulmonary embolism w/ persistent hypoxia - Pt going for catheter angiography for further evaluation of clot burder, likely removal of tPA infusion catheter today. Refused IVC filter after being advised of indication, risks and benefits. Discussed this with covering IR attending, Dr. Soler, he is aware of plan. - Currently on tPA infusion, heparin gtt. Will continue heparin gtt. - Will likely require lifelong AC. - Residual DVT in R popliteal vein. Pt and nephew counseled about need for IVC filter, refused. Will treat with jail AC. 2. Acute hypoxic respiratory failure - Pt satting in - O2 therapy via NC, escalate as needed. Maintain sat >90% - If hypoxia worsens, restart NRB and send ABG 3. Possible PNA/leukocystosis - Possible infiltrate/PNA on imaging at left lung base. - Continue Abx for another day per critical care team. - WBC downtrending 18 on admission -> 16 this AM - Afebrile. Trend WBC, fever curve -Trend lactate. 2.8 yesterday PM. - Consider sputum cultures, blood cultures. 4. Syncopal episode - Cardiac monitoring - fall risk precautions - Carotid u/s neg for stenosis/plaque 5. Elevated troponins - 0.35 on admission 03/27 AM, now 2.07 03/28 AM. Likely due to RV heart strain. BNP 5300~ - Continue to trend trops - Cardiology consulted - Continue ASA, statin 6. CAD - coronary stents in 2014 - ASA 81mg PO daily - f/u lipid profile 7. HTN - Continue to hold HCTZ/lisnopril in setting of MARCO 8. HLD - lipitor 80mg PO hS 9. MARCO - Trend BUN/Cr - Avoid nephrotoxic agents. Limit contrast exposure. - IVFs 10. Hypernatremia - Na 148 on morning labs. - Trend Na - f/u AM BMP tomorrow 11. FEN Fluids: 100 cc NS. Bolus 500cc if hypotensive to maintain MAP >65 Electrolytes: Daily BMP. Trend BUN/Cr, Nutrition: Cardiac diet Dispo - Dispo to ICU for further management and close monitoring given tenuous respiratory status Plan discussed with attending, Dr. Timothy Will, PGY1 Visit type - Emergency Visit Emergency Visit: No - New Patient This patient is new to me today: Yes Date on this admission: 03/28/17 - Critical Care Critical Care patient: Yes Total Critical Care Time (in minutes): 35 Critical Care Statement: The care of this patient involved high complexity decision making to prevent further life threatening deterioration of the patient 's condition and/or to evaluate & treat vital organ system(s) failure or risk of failure.
[2017-03-28] MEDS ORDERED: ACETAMINOPHEN 325 MG TABLET (FP) PO ONE (21:10)
[2017-03-28] MEDS: METOPROLOL TARTRATE 25 MG TABLET (FP) PO SCH (22:08)
[2017-03-29 06:33] LABS: MCH 27.1 pg (25.7-33.7); MCHC 33.2 g/dl (32.0-36.0); MEAN CELL VOLUME 81.6 fl (80-96); MEAN PLT VOLUME 8.3 fl (7.5-11.1); PLATELET COUNT 205 K/MM3 (134-434); RDW 16.8 % (11.6-15.6); WHITE BLOOD COUNT 17.8 K/mm3 (4.0-10.0)
[2017-03-29 07:26] LABS: ALBUMIN 1.9 g/dl (3.4-5.0); ALK PHOS 56 U/L (45-117); BILIRUBIN,TOTAL 0.6 mg/dL (0.2-1.0); CALCIUM 8.1 mg/dL (8.5-10.1); CO2 30 mmol/L (21-32); CREATININE 0.7 mg/dL (0.55-1.02); GLUCOSE,RANDOM 108 mg/dL (74-106); MAGNESIUM 2.1 mg/dL (1.8-2.4); PHOSPHOROUS 2.3 mg/dL (2.5-4.9); SGOT/AST 20 U/L (15-37); SGPT/ALT 21 U/L (12-78); TOT PROT 5.3 g/dl (6.4-8.2)
[2017-03-29] MEDS: SODIUM CHLORIDE 1,000 ML IV SCH ×3 (07:26→21:45)
[2017-03-29 07:51] LABS: ANION GAP 5 (8-16)
--- NOTE | 2017-03-29 08:34 | PN ---
Physical Exam: SUBJECTIVE: Patient seen and examined Patient continues to have SOB, on Heparin drip. OBJECTIVE: Vital Signs Temperature 99.3 F 03/29/17 06:00 Pulse Rate 79 03/29/17 06:00 Respiratory Rate 19 03/29/17 06:00 Blood Pressure 122/68 03/29/17 06:00 O2 Sat by Pulse Oximetry (%) 98 03/28/17 22:25 GENERAL: The patient is awake, alert, and fully oriented, in no acute distress. HEAD: Normal with no signs of trauma. EYES: PERRL, extraocular movements intact, sclera anicteric, conjunctiva clear. ENT: Ears normal, oropharynx clear without exudates, moist mucous membranes. NECK: Trachea midline, full range of motion, supple. LUNGS: Breath sounds equal, clear to auscultation bilaterally, no wheezes, no crackles, no accessory muscle use. HEART: Regular rate and rhythm, S1, S2 positive , no rub or gallop. ABDOMEN: Soft, nontender, nondistended, normoactive bowel sounds, no guarding, no rebound, no hepatosplenomegaly, no masses. EXTREMITIES: 2+ pulses, warm, well-perfused, Swelling of LUE due to IV Infiltration. NEUROLOGICAL: Cranial nerves II through XII grossly intact. Normal speech, gait not observed. PSYCH: Normal mood, normal affect. SKIN: Warm, dry, normal turgor, no rashes or lesions noted CBCD WBC 17.8 K/mm3 (4.0-10.0) H 03/29/17 05:05 RBC 4.09 M/mm3 (3.60-5.2) 03/29/17 05:05 Hgb 11.1 GM/dL (10.7-15.3) 03/29/17 05:05 Hct 33.4 % (32.4-45.2) 03/29/17 05:05 MCV 81.6 fl (80-96) 03/29/17 05:05 MCHC 33.2 g/dl (32.0-36.0) 03/29/17 05:05 RDW 16.8 % (11.6-15.6) H 03/29/17 05:05 Plt Count 205 K/MM3 (134-434) 03/29/17 05:05 MPV 8.3 fl (7.5-11.1) 03/29/17 05:05 CMP Sodium 148 mmol/L (136-145) H 03/29/17 05:05 Potassium 3.5 mmol/L (3.5-5.1) 03/29/17 05:05 Chloride 113 mmol/L (98-107) H 03/29/17 05:05 Carbon Dioxide 30 mmol/L (21-32) 03/29/17 05:05 Anion Gap 5 (8-16) L 03/29/17 05:05 BUN 8 mg/dL (7-18) D 03/29/17 05:05 Creatinine 0.7 mg/dL (0.55-1.02) D 03/29/17 05:05 Creat Clearance w eGFR > 60 (>60) 03/29/17 05:05 Random Glucose 108 mg/dL (74-106) H 03/29/17 05:05 Calcium 8.1 mg/dL (8.5-10.1) L 03/29/17 05:05 Total Bilirubin 0.6 mg/dL (0.2-1.0) 03/29/17 05:05 AST 20 U/L (15-37) D 03/29/17 05:05 ALT 21 U/L (12-78) D 03/29/17 05:05 Alkaline Phosphatase 56 U/L (45-117) 03/29/17 05:05 Total Protein 5.3 g/dl (6.4-8.2) L 03/29/17 05:05 Albumin 1.9 g/dl (3.4-5.0) L D 03/29/17 05:05 CARDIAC ENZYMES Creatine Kinase 136 IU/L (26-192) 03/28/17 05:10 Troponin I 2.07 ng/ml (0.00-0.05) H* 03/28/17 05:10 Home Medication List Medication Instructions Recorded Confirmed Type Aspirin [Neli Chewable] 81 mg PO DAILY 03/27/17 03/27/17 History Atorvastatin Ca [Lipitor] 80 mg PO HS 03/27/17 03/27/17 History Hydrochlorothiazide [Hctz -] 25 mg PO DAILY 03/27/17 03/27/17 History Lisinopril [Prinivil] 20 mg PO DAILY 03/27/17 03/27/17 History Metoprolol Tartrate 25 mg PO BID 03/27/17 03/27/17 History Pantoprazole Sodium 40 mg PO DAILY 03/27/17 03/27/17 History Active Medications Generic Name Dose Route Start Last Admin Trade Name Kelvin PRN Reason Stop Dose Admin Aspirin 81 mg 03/28/17 10:00 03/28/17 10:04 Asa - PO 81 mg DAILY YESENIA Administration Atorvastatin Calcium 80 mg 03/27/17 22:00 03/28/17 22:08 Lipitor - PO 80 mg HS YESENIA Administration Chlorhexidine Gluconate 1 applic 03/27/17 22:00 03/28/17 22:08 Hibiclens For Decolonization - TP 1 applic HS YESENIA Administration Heparin Sodium (Porcine) 1,000 unit 03/27/17 16:40 Heparin - IVPUSH PRN PRN Heparin Heparin Sodium (Porcine) 5,000 unit 03/27/17 16:40 Heparin - IVPUSH PRN PRN Heparin Sodium Chloride 1,000 mls @ 100 mls/hr 03/27/17 15:30 03/29/17 07:26 Normal Saline - IV 100 mls/hr ASDIR YESENIA Administration Azithromycin 500 mg/ Dextrose 250 mls @ 250 mls/hr 03/28/17 10:00 03/28/17 11 :33 IVPB 250 mls/hr DAILY YESENIA Administration CEFTRIAXONE 1 G/50 ML PREMIX 50 mls @ 100 mls/hr 03/28/17 10:00 03/28/17 10: 05 Ceftriaxone 1 Gm-D5w Bag IVPB 100 mls/hr DAILY YESENIA Administration Heparin Sodium (Porcine) 25, 500 mls @ 27 mls/hr 03/27/17 16:40 03/28/17 16: 30 000 unit/ Sodium Chloride IV Not Given TITR YESENIA Protocol 1,350 UNIT/HR Metoprolol Tartrate 12.5 mg 03/28/17 22:00 03/28/17 22:08 Lopressor - PO 12.5 mg BID YESENIA Administration Mupirocin 1 applic 03/27/17 22:00 03/28/17 22:08 Bactroban Ointment (For Decolonization) - NS 04/01/17 21:59 1 applic BID YESENIA Administration Pantoprazole Sodium 40 mg 03/28/17 10:00 03/28/17 10:04 Protonix - PO 40 mg DAILY YESENIA Administration Assessment/Plan: Patient is a 57 y/o pleasant lady with h/o HTN, HLP, CAD s/p stents placed 2 yrs ago, and recent treatment for CAP ( , and 2 weeks) # Acute Massive PE BL s/p catheter directed thrombolysis, RLE DVT. s/p thrombolysis on Heparin drip now continue # Elevated Troponins most likely due to PE (heart strain on ECho). Doubt NSTEMI on alteplase thrombolysis, cardio on the case. On statins 80mg continue #Acute hypoxic resp failure improving due to BL PE. # Positive Infiltrate on CT doubt Pneumonia ,Most likely pulmonary infarct. will continue IV Abx to one more day and will reevaluate the patient. Discussed with ICU attending . # Syncope : due to BL PE # H/O HTN: will continue her Lopressor as per , MEds were confirmed by her and was updated in EMR . Visit type - Emergency Visit Emergency Visit: Yes ED Registration Date: 03/27/17 Care time: The patient presented to the Emergency Department on the above date and was hospitalized for further evaluation of their emergent condition. - New Patient This patient is new to me today: No - Critical Care Critical Care patient: Yes Total Critical Care Time (in minutes): 35 Critical Care Statement: The care of this patient involved high complexity decision making to prevent further life threatening deterioration of the patient 's condition and/or to evaluate & treat vital organ system(s) failure or risk of failure.
[2017-03-29] MEDS: CEFTRIAXONE 1 G/50 ML PREMIX 50 ML IVPB SCH (09:37)
[2017-03-29] MEDS: MUPIROCIN 2% TOPICAL OINTMENT FOR DECOLONIZATION NS SCH ×2 (09:38→21:46)
[2017-03-29] MEDS: ASPIRIN 81 MG CHEWABLE TABLETS PO SCH (09:38)
[2017-03-29] MEDS: PANTOPRAZOLE 40 MG TABLET (FP) PO SCH (09:39)
[2017-03-29] MEDS: METOPROLOL TARTRATE 25 MG TABLET (FP) PO SCH ×2 (09:39→21:46)
[2017-03-29] MEDS: HEPARIN - 25,000 UNIT in SODIUM CHLORIDE 495 ML IV SCH ×2 (09:41→21:46)
[2017-03-29] MEDS: AZITHROMYCIN IVPB 500 MG in DEXTROSE 5%-WATER - 250 ML IVPB SCH (09:44)
--- NOTE | 2017-03-29 09:58 | PN ---
Progress Note, Physician Chief Complaint: sob, PE History of Present Illness: sob much improved now. no cp no palpitations, syncope - Current Medication List Current Medications: Active Medications Aspirin (Asa -) 81 mg PO DAILY [facility] Last Admin: 03/29/17 09:38 Dose: 81 mg Atorvastatin Calcium (Lipitor -) 80 mg PO HS YESENIA Last Admin: 03/28/17 22:08 Dose: 80 mg Chlorhexidine Gluconate (Hibiclens For Decolonization -) 1 applic TP HS [facility] Last Admin: 03/28/17 22:08 Dose: 1 applic Heparin Sodium (Porcine) (Heparin -) 1,000 unit IVPUSH PRN PRN PRN Reason: Heparin Heparin Sodium (Porcine) (Heparin -) 5,000 unit IVPUSH PRN PRN PRN Reason: Heparin Sodium Chloride (Normal Saline -) 1,000 mls @ 100 mls/hr IV ASDIR [facility] Last Admin: 03/29/17 07:26 Dose: 100 mls/hr Azithromycin 500 mg/ Dextrose 250 mls @ 250 mls/hr IVPB DAILY [facility] Last Admin: 03/29/17 09:44 Dose: 250 mls/hr CEFTRIAXONE 1 G/50 ML PREMIX (Ceftriaxone 1 Gm-D5w Bag) 50 mls @ 100 mls/hr IVPB DAILY [facility] Last Admin: 03/29/17 09:37 Dose: 100 mls/hr Heparin Sodium (Porcine) 25, (000 unit/ Sodium Chloride) 500 mls @ 27 mls/hr IV TITR YESENIA; 1,350 UNIT/HR PRN Reason: Protocol Last Admin: 03/29/17 09:41 Dose: 1,150 unit/hr, 23 mls/hr Metoprolol Tartrate (Lopressor -) 12.5 mg PO BID [facility] Last Admin: 03/29/17 09:39 Dose: 12.5 mg Mupirocin (Bactroban Ointment (For Decolonization) -) 1 applic NS BID [facility] Stop: 04/01/17 21:59 Last Admin: 03/29/17 09:38 Dose: 1 applic Pantoprazole Sodium (Protonix -) 40 mg PO DAILY [facility] Last Admin: 03/29/17 09:39 Dose: 40 mg - Objective Vital Signs: Vital Signs Temperature 99 F 03/29/17 08:00 Pulse Rate 88 03/29/17 08:00 Respiratory Rate 20 03/29/17 08:00 Blood Pressure 146/80 03/29/17 08:00 O2 Sat by Pulse Oximetry (%) 98 03/28/17 22:25 Constitutional: Yes: No Distress, Calm, Obese Cardiovascular: Yes: Regular Rate and Rhythm, S1, S2. No: JVD (very tds exam ( habitus, neck pain on turning)), Gallop, Murmur Respiratory: Yes: Regular, CTA Bilaterally. No: Accessory Muscle Use, Rales, Wheezes Extremities: No: Cold Edema: No Neurological: Yes: Alert, Oriented Psychiatric: No: Agitated Labs: CBC, BMP 03/29/17 05:05 03/29/17 05:05 INR, PTT INR 1.38 (0.82-1.09) H 03/28/17 05:10 - ....Imaging EKG: Other (tele: NSR) Assessment/Plan EKG x2: sinus tach. septal infarct. non-specific t wave ab echo: nl lv size/fn. RV dilation and decreased function with concern for right heart strain. see emr for full report chest cta: large bl pe's a/p: 57 year old with h/o HTN, HLD, and CAD (s/p stent placement 2 years prior) presents with syncope, persistent hypoxia, hypotension now with new dvt and PE. right heart strain with new dvt and b/l pe's. - large bl pe's on cta, s/p catheter thrombolysis by IR, and ivc filter for large dvt - on AC per pulm/critical care - Echo findings c/w for PE with right heart strain, no signs of right sided chf ; hemodynamically stable - duration of AC per pulm +/- heme (? unprovoked event) cad s/p remote pci, pos trops - troponin elevation here likely secondary to acute RV strain from PE. - nonspecific TWAs on ekg, similar on repeat (no old to compare) - expect troponin to peak by approx 24 hrs after the event--rpt trop today - observe for sx's of acute myocardial ischemia - cont home ASA, atorva as doing - defer BB and YOUNG until low bp clearly no longer an issue - follows with dr golden for outpt cardio HTN - [id number] meds here, as pt was initially hypotensive. pulm infiltrate: -suspected infarction > pna per pulm team--defer abx to them
--- NOTE | 2017-03-29 10:21 | PN ---
Progress Note (short form) - Note Progress Note: Patient patient seen and examined in the ICU. Awake and alert. No CP. SOB is better. Small amount of hemoptysis admixed with a small amount of sputum this AM. (?) small laceration on the right side of the tongue IV Heparin infusing. Intake & Output 03/26/17 03/27/17 03/28/17 03/29/17 23:59 23:59 23:59 23:59 Intake Total 1231 4145.5 1476 Output Total 150 1300 1100 Balance 1081 2845.5 376 Weight 165 lb 212 lb 11.2 oz 215 lb Last Vital Signs Temp Pulse Resp BP Pulse Ox 99 F 88 20 146/80 98 03/29/17 08:00 03/29/17 08:00 03/29/17 08:00 03/29/17 08:00 03/28/17 22:25 Active Medications Aspirin (Asa -) 81 mg PO DAILY YESENIA Last Admin: 03/29/17 09:38 Dose: 81 mg Atorvastatin Calcium (Lipitor -) 80 mg PO HS YESENIA Last Admin: 03/28/17 22:08 Dose: 80 mg Chlorhexidine Gluconate (Hibiclens For Decolonization -) 1 applic TP HS YESENIA Last Admin: 03/28/17 22:08 Dose: 1 applic Heparin Sodium (Porcine) (Heparin -) 1,000 unit IVPUSH PRN PRN PRN Reason: Heparin Heparin Sodium (Porcine) (Heparin -) 5,000 unit IVPUSH PRN PRN PRN Reason: Heparin Sodium Chloride (Normal Saline -) 1,000 mls @ 100 mls/hr IV ASDIR YESENIA Last Admin: 03/29/17 07:26 Dose: 100 mls/hr Azithromycin 500 mg/ Dextrose 250 mls @ 250 mls/hr IVPB DAILY YESENIA Last Admin: 03/29/17 09:44 Dose: 250 mls/hr CEFTRIAXONE 1 G/50 ML PREMIX (Ceftriaxone 1 Gm-D5w Bag) 50 mls @ 100 mls/hr IVPB DAILY YESENIA Last Admin: 03/29/17 09:37 Dose: 100 mls/hr Heparin Sodium (Porcine) 25, (000 unit/ Sodium Chloride) 500 mls @ 27 mls/hr IV TITR YESENIA; 1,350 UNIT/HR PRN Reason: Protocol Last Admin: 03/29/17 09:41 Dose: 1,150 unit/hr, 23 mls/hr Metoprolol Tartrate (Lopressor -) 12.5 mg PO BID [facility] Last Admin: 03/29/17 09:39 Dose: 12.5 mg Mupirocin (Bactroban Ointment (For Decolonization) -) 1 applic NS BID [facility] Stop: 04/01/17 21:59 Last Admin: 03/29/17 09:38 Dose: 1 applic Pantoprazole Sodium (Protonix -) 40 mg PO DAILY [facility] Last Admin: 03/29/17 09:39 Dose: 40 mg Gen: Awake and alert, NAD Heart: RRR Lung: decreased breath sounds at the bases Abd: soft, nontender Ext: no edema Laboratory Results - last 24 hr 03/27/17 03/28/17 03/29/17 03:58 20:40 05:05 WBC 17.8 H RBC 4.09 Hgb 11.1 Hct 33.4 MCV 81.6 MCH 27.1 MCHC 33.2 RDW 16.8 H Plt Count 205 MPV 8.3 PTT (Actin FS) 75.3 H Sodium Potassium Chloride Carbon Dioxide Anion Gap BUN Creatinine Creat Clearance w eGFR Random Glucose Calcium Phosphorus Magnesium Total Bilirubin AST ALT Alkaline Phosphatase Total Protein Albumin Urine Calcium < 2.0 03/29/17 03/29/17 05:05 05:05 WBC RBC Hgb Hct MCV MCH MCHC RDW Plt Count MPV PTT (Actin FS) 66.4 H Sodium 148 H Potassium 3.5 Chloride 113 H Carbon Dioxide 30 Anion Gap 5 L BUN 8 D Creatinine 0.7 D Creat Clearance w eGFR > 60 Random Glucose 108 H Calcium 8.1 L Phosphorus 2.3 L D Magnesium 2.1 Total Bilirubin 0.6 AST 20 D ALT 21 D Alkaline Phosphatase 56 Total Protein 5.3 L Albumin 1.9 L D Urine Calcium ASSESSMENT AND PLAN: Massive Acute Pulmonary Emboli s/p catheter directed thrombolysis R DVT Lung infiltrate likely pulmonary infarct +Troponins - IV Heparin with close monitoring of PTT - O2 to keep SpO2 >90% - IVF - Empiric antibiotics - continue ICU monitoring Dr Braswell critical care time spent in reviewing chart, evaluating patient and formulating plan 35 min
[2017-03-29 12:12] LABS: CPK 61 IU/L (26-192); TROPONIN I 0.43 ng/ml (0.00-0.05)
[2017-03-29] MEDS: ATORVASTATIN CA 80 MG TABLET (FP) PO SCH (21:46)
[2017-03-30 06:45] LABS: MCH 26.6 pg (25.7-33.7); MCHC 32.3 g/dl (32.0-36.0); MEAN CELL VOLUME 82.3 fl (80-96); MEAN PLT VOLUME 8.3 fl (7.5-11.1); PLATELET COUNT 208 K/MM3 (134-434); RDW 16.7 % (11.6-15.6); WHITE BLOOD COUNT 16.9 K/mm3 (4.0-10.0)
[2017-03-30 07:39] LABS: ALBUMIN 1.7 g/dl (3.4-5.0); ANION GAP 7 (8-16); CALCIUM 8.2 mg/dL (8.5-10.1); CO2 27 mmol/L (21-32); CREATININE 0.8 mg/dL (0.55-1.02); GLUCOSE,RANDOM 106 mg/dL (74-106); SGOT/AST 16 U/L (15-37); SGPT/ALT 20 U/L (12-78)
[2017-03-30 07:41] LABS: ALK PHOS 54 U/L (45-117); BILIRUBIN,TOTAL 0.2 mg/dL (0.2-1.0); TOT PROT 5.2 g/dl (6.4-8.2)
[2017-03-30] MEDS: AZITHROMYCIN IVPB 500 MG in DEXTROSE 5%-WATER - 250 ML IVPB SCH (09:43)
[2017-03-30] MEDS: PANTOPRAZOLE 40 MG TABLET (FP) PO SCH (09:43)
[2017-03-30] MEDS: METOPROLOL TARTRATE 25 MG TABLET (FP) PO SCH (09:43)
[2017-03-30] MEDS: ASPIRIN 81 MG CHEWABLE TABLETS PO SCH (09:43)
[2017-03-30] MEDS: CEFTRIAXONE 1 G/50 ML PREMIX 50 ML IVPB SCH (09:43)
[2017-03-30] MEDS: MUPIROCIN 2% TOPICAL OINTMENT FOR DECOLONIZATION NS SCH ×2 (09:52→21:28)
--- NOTE | 2017-03-30 09:56 | PN ---
Progress Note (short form) - Note Progress Note: Patient patient seen and examined in the ICU. Awake and alert. No CP. SOB is better. Still with a small amount of hemoptysis admixed with sputum this AM. IV Heparin infusing. Intake & Output 03/27/17 03/28/17 03/29/17 03/30/17 23:59 23:59 23:59 23:59 Intake Total 1231 4145.5 4062 1161 Output Total 150 1300 1400 900 Balance 1081 2845.5 2662 261 Weight 212 lb 11.2 oz 215 lb 224 lb Last Vital Signs Temp Pulse Resp BP Pulse Ox 98.3 F 74 18 151/78 99 03/30/17 06:00 03/30/17 06:00 03/30/17 06:00 03/30/17 06:00 03/29/17 21:00 Active Medications Aspirin (Asa -) 81 mg PO DAILY [facility] Last Admin: 03/30/17 09:43 Dose: 81 mg Atorvastatin Calcium (Lipitor -) 80 mg PO HS [facility] Last Admin: 03/29/17 21:46 Dose: 80 mg Chlorhexidine Gluconate (Hibiclens For Decolonization -) 1 applic TP HS [facility] Last Admin: 03/28/17 22:08 Dose: 1 applic Heparin Sodium (Porcine) (Heparin -) 1,000 unit IVPUSH PRN PRN PRN Reason: Heparin Heparin Sodium (Porcine) (Heparin -) 5,000 unit IVPUSH PRN PRN PRN Reason: Heparin Sodium Chloride (Normal Saline -) 1,000 mls @ 100 mls/hr IV ASDIR [facility] Last Admin: 03/29/17 21:45 Dose: 100 mls/hr Azithromycin 500 mg/ Dextrose 250 mls @ 250 mls/hr IVPB DAILY [facility] Last Admin: 03/30/17 09:43 Dose: 250 mls/hr CEFTRIAXONE 1 G/50 ML PREMIX (Ceftriaxone 1 Gm-D5w Bag) 50 mls @ 100 mls/hr IVPB DAILY [facility] Last Admin: 03/30/17 09:43 Dose: 100 mls/hr Heparin Sodium (Porcine) 25, (000 unit/ Sodium Chloride) 500 mls @ 27 mls/hr IV TITR YESENIA; 1,350 UNIT/HR PRN Reason: Protocol Last Titration: 03/30/17 08:26 Dose: 1,150 unit/hr, 23 mls/hr Metoprolol Tartrate (Lopressor -) 12.5 mg PO BID [facility] Last Admin: 03/30/17 09:43 Dose: 12.5 mg Mupirocin (Bactroban Ointment (For Decolonization) -) 1 applic NS BID [facility] Stop: 04/01/17 21:59 Last Admin: 03/30/17 09:52 Dose: 1 applic Pantoprazole Sodium (Protonix -) 40 mg PO DAILY [facility] Last Admin: 03/30/17 09:43 Dose: 40 mg Gen: Awake and alert, NAD Heart: RRR Lung: decreased breath sounds at the bases Abd: soft, nontender Ext: no edema Laboratory Results - last 24 hr 03/29/17 03/29/17 03/30/17 05:05 05:05 05:20 WBC 16.9 H RBC 4.07 Hgb 10.8 Hct 33.5 MCV 82.3 MCH 26.6 MCHC 32.3 RDW 16.7 H Plt Count 208 MPV 8.3 Manual Slide Review No Result Required. No Result Required. PTT (Actin FS) Sodium 148 H Potassium 3.5 Chloride 113 H Carbon Dioxide 30 Anion Gap 5 L BUN 8 D Creatinine 0.7 D Creat Clearance w eGFR > 60 Random Glucose 108 H Calcium 8.1 L Phosphorus 2.3 L D Magnesium 2.1 Total Bilirubin 0.6 AST 20 D ALT 21 D Alkaline Phosphatase 56 Creatine Kinase 61 Troponin I 0.43 H Total Protein 5.3 L Albumin 1.9 L D 03/30/17 03/30/17 05:20 05:20 WBC RBC Hgb Hct MCV MCH MCHC RDW Plt Count MPV Manual Slide Review PTT (Actin FS) 63.5 H Sodium 150 H Potassium 3.6 Chloride 116 H Carbon Dioxide 27 Anion Gap 7 L BUN 13 D Creatinine 0.8 Creat Clearance w eGFR > 60 Random Glucose 106 Calcium 8.2 L Phosphorus Magnesium Total Bilirubin 0.2 D AST 16 ALT 20 Alkaline Phosphatase 54 Creatine Kinase Troponin I Total Protein 5.2 L Albumin 1.7 L ASSESSMENT AND PLAN: Massive Acute Pulmonary Emboli s/p catheter directed thrombolysis R DVT Lung infiltrate likely pulmonary infarct +Troponins - IV Heparin with close monitoring of PTT - O2 to keep SpO2 >90% - IVF - Empiric antibiotics - continue ICU monitoring Dr Braswell Critical care time spent in reviewing chart, evaluating patient and formulating plan 35 min
--- NOTE | 2017-03-30 10:49 | PN ---
Progress Note, Physician Chief Complaint: PE History of Present Illness: no sob no cp, palpit, syncope - Current Medication List Current Medications: Active Medications Aspirin (Asa -) 81 mg PO DAILY [facility] Last Admin: 03/30/17 09:43 Dose: 81 mg Atorvastatin Calcium (Lipitor -) 80 mg PO HS [facility] Last Admin: 03/29/17 21:46 Dose: 80 mg Chlorhexidine Gluconate (Hibiclens For Decolonization -) 1 applic TP HS [facility] Last Admin: 03/28/17 22:08 Dose: 1 applic Heparin Sodium (Porcine) (Heparin -) 1,000 unit IVPUSH PRN PRN PRN Reason: Heparin Heparin Sodium (Porcine) (Heparin -) 5,000 unit IVPUSH PRN PRN PRN Reason: Heparin Azithromycin 500 mg/ Dextrose 250 mls @ 250 mls/hr IVPB DAILY [facility] Last Admin: 03/30/17 09:43 Dose: 250 mls/hr CEFTRIAXONE 1 G/50 ML PREMIX (Ceftriaxone 1 Gm-D5w Bag) 50 mls @ 100 mls/hr IVPB DAILY [facility] Last Admin: 03/30/17 09:43 Dose: 100 mls/hr Heparin Sodium (Porcine) 25, (000 unit/ Sodium Chloride) 500 mls @ 27 mls/hr IV TITR [facility]EN[facility]; 1,350 UNIT/HR PRN Reason: Protocol Last Titration: 03/30/17 08:26 Dose: 1,150 unit/hr, 23 mls/hr Metoprolol Tartrate (Lopressor -) 12.5 mg PO BID [facility] Last Admin: 03/30/17 09:43 Dose: 12.5 mg Mupirocin (Bactroban Ointment (For Decolonization) -) 1 applic NS BID [facility] Stop: 04/01/17 21:59 Last Admin: 03/30/17 09:52 Dose: 1 applic Pantoprazole Sodium (Protonix -) 40 mg PO DAILY [facility] Last Admin: 03/30/17 09:43 Dose: 40 mg - Objective Vital Signs: Vital Signs Temperature 98.3 F 03/30/17 06:00 Pulse Rate 74 03/30/17 06:00 Respiratory Rate 18 03/30/17 06:00 Blood Pressure 151/78 03/30/17 06:00 O2 Sat by Pulse Oximetry (%) 99 03/29/17 21:00 Constitutional: Yes: No Distress, Calm, Obese Cardiovascular: Yes: Regular Rate and Rhythm, S1, S2. No: Gallop, Murmur Respiratory: Yes: Regular, CTA Bilaterally. No: Accessory Muscle Use, Wheezes Extremities: No: Cold Edema: No Neurological: Yes: Alert, Oriented Psychiatric: No: Agitated Labs: CBC, BMP 03/30/17 05:20 03/30/17 05:20 INR, PTT INR 1.38 (0.82-1.09) H 03/28/17 05:10 - ....Imaging EKG: Other (tele: NSR) Assessment/Plan EKG x2: sinus tach. septal infarct. non-specific t wave ab echo: nl lv size/fn. RV dilation and decreased function with concern for right heart strain. see emr for full report chest cta: large bl pe's a/p: 57 year old with h/o HTN, HLD, and CAD (s/p stent placement 2 years prior) presents with syncope, persistent hypoxia, hypotension now with new dvt and PE. right heart strain with new dvt and b/l pe's. - large bl pe's on cta, s/p catheter thrombolysis by IR, and ivc filter for large dvt - on AC per pulm/critical care - Echo findings c/w for PE with right heart strain, no signs of right sided chf ; hemodynamically stable - duration of AC per pulm +/- heme (? unprovoked event) cad s/p remote pci, pos trops - troponin elevation here likely secondary to acute RV strain from PE. - nonspecific TWAs on ekg, similar on repeat (no old to compare) - trop peaked at 2.0, trending down now - no clinical sx's of acute myocardial ischemia process at present--observe - cont home ASA, atorva as doing - resume home metopr (25mg per pt). - not on YOUNG at home per pt - follows with dr golden for outpt cardio (and for YOUNG/BB dose reconcilitation/ titration) HTN - has remained hemodynamically stable x 48 hrs now - on lisinopril and metopr bid at home, doses uncertain - resuming home BB, observe bp's pulm infiltrate: -suspected infarction > pna per pulm team--defer abx to them
--- NOTE | 2017-03-30 15:32 | PN ---
Progress Note (short form) - Note Progress Note: Patient feels better, swelling of LUE is better. Vital Signs Temperature 98.9 F 03/30/17 14:56 Pulse Rate 73 03/30/17 14:56 Respiratory Rate 19 03/30/17 14:56 Blood Pressure 128/65 03/30/17 14:56 O2 Sat by Pulse Oximetry (%) 99 03/29/17 21:00 GENERAL: The patient is awake, alert, and fully oriented, in no acute distress. HEAD: Normal with no signs of trauma. EYES: PERRL, extraocular movements intact, sclera anicteric, conjunctiva clear. ENT: Ears normal, oropharynx clear without exudates, moist mucous membranes. NECK: Trachea midline, full range of motion, supple. LUNGS: Breath sounds equal, clear to auscultation bilaterally, no wheezes, no crackles, no accessory muscle use. HEART: Regular rate and rhythm, S1, S2 positive , no rub or gallop. ABDOMEN: Soft, nontender, nondistended, normoactive bowel sounds, no guarding, no rebound, no hepatosplenomegaly, no masses. EXTREMITIES: 2+ pulses, warm, well-perfused, Swelling of LUE due to IV Infiltration. NEUROLOGICAL: Cranial nerves II through XII grossly intact. Normal speech, gait not observed. PSYCH: Normal mood, normal affect. SKIN: Warm, dry, normal turgor. CBCD WBC 16.9 K/mm3 (4.0-10.0) H 03/30/17 05:20 RBC 4.07 M/mm3 (3.60-5.2) 03/30/17 05:20 Hgb 10.8 GM/dL (10.7-15.3) 03/30/17 05:20 Hct 33.5 % (32.4-45.2) 03/30/17 05:20 MCV 82.3 fl (80-96) 03/30/17 05:20 MCHC 32.3 g/dl (32.0-36.0) 03/30/17 05:20 RDW 16.7 % (11.6-15.6) H 03/30/17 05:20 Plt Count 208 K/MM3 (134-434) 03/30/17 05:20 MPV 8.3 fl (7.5-11.1) 03/30/17 05:20 CMP Sodium 150 mmol/L (136-145) H 03/30/17 05:20 Potassium 3.6 mmol/L (3.5-5.1) 03/30/17 05:20 Chloride 116 mmol/L (98-107) H 03/30/17 05:20 Carbon Dioxide 27 mmol/L (21-32) 03/30/17 05:20 Anion Gap 7 (8-16) L 03/30/17 05:20 BUN 13 mg/dL (7-18) D 03/30/17 05:20 Creatinine 0.8 mg/dL (0.55-1.02) 03/30/17 05:20 Creat Clearance w eGFR > 60 (>60) 03/30/17 05:20 Random Glucose 106 mg/dL (74-106) 03/30/17 05:20 Calcium 8.2 mg/dL (8.5-10.1) L 03/30/17 05:20 Total Bilirubin 0.2 mg/dL (0.2-1.0) D 03/30/17 05:20 AST 16 U/L (15-37) 03/30/17 05:20 ALT 20 U/L (12-78) 03/30/17 05:20 Alkaline Phosphatase 54 U/L (45-117) 03/30/17 05:20 Total Protein 5.2 g/dl (6.4-8.2) L 03/30/17 05:20 Albumin 1.7 g/dl (3.4-5.0) L 03/30/17 05:20 CARDIAC ENZYMES Creatine Kinase 61 IU/L (26-192) 03/29/17 05:05 Troponin I 0.43 ng/ml (0.00-0.05) H 03/29/17 05:05 CBCD WBC 16.9 K/mm3 (4.0-10.0) H 03/30/17 05:20 RBC 4.07 M/mm3 (3.60-5.2) 03/30/17 05:20 Hgb 10.8 GM/dL (10.7-15.3) 03/30/17 05:20 Hct 33.5 % (32.4-45.2) 03/30/17 05:20 MCV 82.3 fl (80-96) 03/30/17 05:20 MCHC 32.3 g/dl (32.0-36.0) 03/30/17 05:20 RDW 16.7 % (11.6-15.6) H 03/30/17 05:20 Plt Count 208 K/MM3 (134-434) 03/30/17 05:20 MPV 8.3 fl (7.5-11.1) 03/30/17 05:20 CMP Sodium 150 mmol/L (136-145) H 03/30/17 05:20 Potassium 3.6 mmol/L (3.5-5.1) 03/30/17 05:20 Chloride 116 mmol/L (98-107) H 03/30/17 05:20 Carbon Dioxide 27 mmol/L (21-32) 03/30/17 05:20 Anion Gap 7 (8-16) L 03/30/17 05:20 BUN 13 mg/dL (7-18) D 03/30/17 05:20 Creatinine 0.8 mg/dL (0.55-1.02) 03/30/17 05:20 Creat Clearance w eGFR > 60 (>60) 03/30/17 05:20 Random Glucose 106 mg/dL (74-106) 03/30/17 05:20 Calcium 8.2 mg/dL (8.5-10.1) L 03/30/17 05:20 Total Bilirubin 0.2 mg/dL (0.2-1.0) D 03/30/17 05:20 AST 16 U/L (15-37) 03/30/17 05:20 ALT 20 U/L (12-78) 03/30/17 05:20 Alkaline Phosphatase 54 U/L (45-117) 03/30/17 05:20 Total Protein 5.2 g/dl (6.4-8.2) L 03/30/17 05:20 Albumin 1.7 g/dl (3.4-5.0) L 03/30/17 05:20 CARDIAC ENZYMES Creatine Kinase 61 IU/L (26-192) 03/29/17 05:05 Troponin I 0.43 ng/ml (0.00-0.05) H 03/29/17 05:05 Current Medications Generic Name Dose Route Start Last Admin Trade Name Freq PRN Reason Stop Dose Admin Aspirin 81 mg 03/28/17 10:00 03/30/17 09:43 Asa - PO 81 mg DAILY [facility] Administration Atorvastatin Calcium 80 mg 03/27/17 22:00 03/29/17 21:46 Lipitor - PO 80 mg HS [facility] Administration Chlorhexidine Gluconate 1 applic 03/27/17 22:00 03/28/17 22:08 Hibiclens For Decolonization - TP 1 applic HS [facility] Administration Heparin Sodium (Porcine) 1,000 unit 03/27/17 16:40 Heparin - IVPUSH PRN PRN Heparin Heparin Sodium (Porcine) 5,000 unit 03/27/17 16:40 Heparin - IVPUSH PRN PRN Heparin Azithromycin 500 mg/ Dextrose 250 mls @ 250 mls/hr 03/28/17 10:00 03/30/17 09 :43 IVPB 250 mls/hr DAILY [facility] Administration CEFTRIAXONE 1 G/50 ML PREMIX 50 mls @ 100 mls/hr 03/28/17 10:00 03/30/17 09: 43 Ceftriaxone 1 Gm-D5w Bag IVPB 100 mls/hr DAILY [facility] Administration Heparin Sodium (Porcine) 25, 500 mls @ 27 mls/hr 03/27/17 16:40 03/30/17 08: 26 000 unit/ Sodium Chloride IV 1,150 unit/hr TITR [facility] 23 mls/hr Protocol Titration 1,350 UNIT/HR Metoprolol Succinate 25 mg 03/31/17 10:00 Toprol Xl - PO DAILY [facility] Mupirocin 1 applic 03/27/17 22:00 03/30/17 09:52 Bactroban Ointment (For Decolonization) - NS 04/01/17 21:59 1 applic BID [facility] Administration Pantoprazole Sodium 40 mg 03/28/17 10:00 03/30/17 09:43 Protonix - PO 40 mg DAILY [facility] Administration Home Medications Medication Instructions Recorded Aspirin [Neli Chewable] 81 mg PO DAILY 03/27/17 Atorvastatin Ca [Lipitor] 80 mg PO HS 03/27/17 Hydrochlorothiazide [Hctz -] 25 mg PO DAILY 03/27/17 Lisinopril [Prinivil] 20 mg PO DAILY 03/27/17 Metoprolol Tartrate 25 mg PO BID 03/27/17 Pantoprazole Sodium 40 mg PO DAILY 03/27/17 Assessment/Plan: Patient is a 57 y/o pleasant lady with h/o HTN, HLP, CAD s/p stents placed 2 yrs ago, and recent treatment for CAP ( , and 2 weeks) # Acute Massive BL PE s/p catheter directed Alteplase thrombolysis, RLE DVT. On heparin drip continue # Elevated Troponins most likely due to PE (heart strain on ECho). Doubt NSTEMI on alteplase thrombolysis, cardio on the case. On statins 80mg continue # s/p hypoxic resp failure due to BL PE on Heparin drip. # Positive Infiltrate on CT doubt Pneumonia ,Most likely pulmonary infarct. will continue 2 more day s and discontue. Discussed with ICU attending . # Syncope : due to BL PE # H/O HTN: will continue her Lopressor DVT Px; Heparin Visit type - Emergency Visit Emergency Visit: Yes ED Registration Date: 03/27/17 Care time: The patient presented to the Emergency Department on the above date and was hospitalized for further evaluation of their emergent condition. - New Patient This patient is new to me today: No - Critical Care Critical Care patient: No
[2017-03-30] MEDS: HEPARIN - 25,000 UNIT in SODIUM CHLORIDE 495 ML IV SCH (17:43)
[2017-03-30] MEDS: ATORVASTATIN CA 80 MG TABLET (FP) PO SCH (21:27)
[2017-03-30] MEDS: CHLORHEXIDINE GLUCONATE 4% CLEANSER FOR DECOLONIZATION TP SCH (21:29)
--- NOTE | 2017-03-31 06:26 | PN ---
Physical Exam: SUBJECTIVE: Patient seen and examined by me this AM - Endorses continues to endorse improved breathing, minimal SOB off o2 support. Endorsed mild febrile episode over weekend. Coughed up small amount of pink sputum this AM, but denies any episodes of hemoptysis. Mild bilateral pleuritic CP in the subcostal regions, neck pain -> likely due to stasis in bed - Wishes to ambulate bed to chair. Also concerned about L forearm hematoma, which is painful to touch. Ordered for warm compresses. - Denies PALOMINO/dizziness, vision changes, palpitations, N/V, abdominal pain, rashes , dysuria, diarrhea/constipation. OBJECTIVE: Vital Signs Intake & Output 03/28/17 03/29/17 03/30/17 03/31/17 23:59 23:59 23:59 23:59 Intake Total 4145.5 4062 3024 361 Output Total 1300 1400 1620 700 Balance 2845.5 2662 1404 -339 Weight 96.479 kg 97.522 kg 101.605 kg 103.136 kg Period Temp Pulse Resp BP Sys/Shields Pulse Ox Last 24 Hr 98.0 F-98.9 F 58-93 18-23 106-167/65-93 96-96 GENERAL: Patient is A&Ox3. Lying in bed in no acute distress. HEAD: NCAT EYES: PERRL, extraocular movements intact, conjunctiva clear. No ptosis. ENT: Ears normal, nares patent, oropharynx clear without exudates, moist mucous membranes. NECK: Trachea midline, full range of motion, supple. No JVD noted. R neck dressing with no bleeding, oozing or erythema. LUNGS: Bibasilar crackles. No wheezes, no accessory muscle use. HEART: Regular rate and rhythm, S1, S2. Mild S3 noted. No other murmur, rub or gallop appreciated. ABDOMEN: Soft, nontender, nondistended, normoactive bowel sounds, no guarding, no rebound. Upper EXTREMITIES: 2+ pulses, warm, well-perfused, no edema. Lower extremities: 2+ DP, PT pulses bilaterally. 1+ nonpitting edema BL. Warm to touch. NEUROLOGICAL: Cranial nerves II through XII grossly intact. Normal speech, gait not observed. PSYCH: Appropriate affect. Interactive, good mood. Laboratory Results - last 24 hr CBC, BMP 03/31/17 05:00 03/31/17 05:00 Laboratory Last Values WBC 14.5 K/mm3 (4.0-10.0) H 03/31/17 05:00 RBC 4.15 M/mm3 (3.60-5.2) 03/31/17 05:00 Hgb 11.1 GM/dL (10.7-15.3) 03/31/17 05:00 Hct 33.5 % (32.4-45.2) 03/31/17 05:00 MCV 80.8 fl (80-96) 03/31/17 05:00 MCH 26.8 pg (25.7-33.7) 03/31/17 05:00 MCHC 33.2 g/dl (32.0-36.0) 03/31/17 05:00 RDW 17.1 % (11.6-15.6) H 03/31/17 05:00 Plt Count 246 K/MM3 (134-434) 03/31/17 05:00 MPV 8.9 fl (7.5-11.1) 03/31/17 05:00 Neutrophils % 85.2 % (42.8-82.8) H 03/28/17 05:10 Lymphocytes % 7.7 % (8-40) L 03/28/17 05:10 Monocytes % 6.8 % (3.8-10.2) 03/28/17 05:10 Eosinophils % 0.1 % (0-4.5) D 03/28/17 05:10 Basophils % 0.2 % (0-2.0) 03/28/17 05:10 Manual Slide Review No Result Required. 03/30/17 05:20 PT with INR 15.60 SEC (9.98-11.88) H 03/28/17 05:10 INR 1.38 (0.82-1.09) H 03/28/17 05:10 PTT (Actin FS) 66.7 SECONDS (26.9-34.4) H 03/31/17 05:00 Sodium 149 mmol/L (136-145) H 03/31/17 05:00 Potassium 3.4 mmol/L (3.5-5.1) L 03/31/17 05:00 Chloride 115 mmol/L (98-107) H 03/31/17 05:00 Carbon Dioxide 27 mmol/L (21-32) 03/31/17 05:00 Anion Gap 7 (8-16) L 03/31/17 05:00 BUN 14 mg/dL (7-18) 03/31/17 05:00 Creatinine 0.7 mg/dL (0.55-1.02) 03/31/17 05:00 Creat Clearance w eGFR > 60 (>60) 03/31/17 05:00 Random Glucose 102 mg/dL (74-106) 03/31/17 05:00 Hemoglobin A1c % 6.1 % (4.8-6.0) H 03/27/17 06:30 Lactic Acid 2.8 mmol/L (0.4-2.0) H* 03/27/17 19:45 Calcium 8.1 mg/dL (8.5-10.1) L 03/31/17 05:00 Phosphorus 2.3 mg/dL (2.5-4.9) L D 03/29/17 05:05 Magnesium 2.1 mg/dL (1.8-2.4) 03/29/17 05:05 Total Bilirubin 0.4 mg/dL (0.2-1.0) D 03/31/17 05:00 AST 25 U/L (15-37) D 03/31/17 05:00 ALT 28 U/L (12-78) D 03/31/17 05:00 Alkaline Phosphatase 55 U/L (45-117) 03/31/17 05:00 Creatine Kinase 61 IU/L (26-192) 03/29/17 05:05 Creatine Kinase Index 4.3 % (0.0-5.0) 03/27/17 19:05 CK-MB (CK-2) 6.493 ng/mL (0.5-3.6) H 03/27/17 19:05 Troponin I 0.43 ng/ml (0.00-0.05) H 03/29/17 05:05 B-Natriuretic Peptide 5328.55 pg/ml (5-125) H 03/27/17 06:30 Total Protein 5.0 g/dl (6.4-8.2) L 03/31/17 05:00 Albumin 1.7 g/dl (3.4-5.0) L 03/31/17 05:00 Triglycerides 72 mg/dL (35-160) 03/27/17 06:30 Cholesterol 158 mg/dL (50-200) 03/27/17 06:30 Total LDL Cholesterol 97 mg/dL (5-100) 03/27/17 06:30 HDL Cholesterol 40 mg/dL (40-60) 03/27/17 06:30 Urine Color Ltyellow 03/27/17 03:58 Urine Appearance Clear 03/27/17 03:58 Urine pH 5.0 (5.0-8.0) 03/27/17 03:58 Ur Specific [place] 1.023 (1.001-1.035) 03/27/17 03:58 Urine Protein Negative (NEGATIVE) 03/27/17 03:58 Urine Glucose (UA) Negative (NEGATIVE) 03/27/17 03:58 Urine Ketones Negative (NEGATIVE) 03/27/17 03:58 Urine Blood Negative (NEGATIVE) 03/27/17 03:58 Urine Nitrite Negative (NEGATIVE) 03/27/17 03:58 Urine Bilirubin Negative (NEGATIVE) 03/27/17 03:58 Urine Urobilinogen Negative mg/dL (0.2-1.0) 03/27/17 03:58 Ur Leukocyte Esterase Negative (NEGATIVE) 03/27/17 03:58 Ur Random Sodium 22 MMOL/L 03/27/17 22:00 Urine Creatinine 129.0 mg/dL (20-320) 03/27/17 22:00 Urine Calcium < 2.0 mg/dl 03/27/17 03:58 Active Medications Generic Name Dose Route Start Last Admin Trade Name Chemaq PRN Reason Stop Dose Admin Aspirin 81 mg 03/28/17 10:00 03/30/17 09:43 Asa - PO 81 mg DAILY [facility] Administration Atorvastatin Calcium 80 mg 03/27/17 22:00 03/30/17 21:27 Lipitor - PO 80 mg HS YESENIA Administration Chlorhexidine Gluconate 1 applic 03/27/17 22:00 03/30/17 21:29 Hibiclens For Decolonization - TP Not Given HS YESENIA Heparin Sodium (Porcine) 1,000 unit 03/27/17 16:40 Heparin - IVPUSH PRN PRN Heparin Heparin Sodium (Porcine) 5,000 unit 03/27/17 16:40 Heparin - IVPUSH PRN PRN Heparin Azithromycin 500 mg/ Dextrose 250 mls @ 250 mls/hr 03/28/17 10:00 03/30/17 09 :43 IVPB 250 mls/hr DAILY [facility] Administration CEFTRIAXONE 1 G/50 ML PREMIX 50 mls @ 100 mls/hr 03/28/17 10:00 03/30/17 09: 43 Ceftriaxone 1 Gm-D5w Bag IVPB 100 mls/hr DAILY [facility] Administration Heparin Sodium (Porcine) 25, 500 mls @ 27 mls/hr 03/27/17 16:40 03/30/17 17: 43 000 unit/ Sodium Chloride IV Not Given TITR [facility]EN[facility] Protocol 1,350 UNIT/HR Metoprolol Succinate 25 mg 03/31/17 10:00 Toprol Xl - PO DAILY [facility] Mupirocin 1 applic 03/27/17 22:00 03/30/17 21:28 Bactroban Ointment (For Decolonization) - NS 04/01/17 21:59 1 applic BID [facility] Administration Pantoprazole Sodium 40 mg 03/28/17 10:00 03/30/17 09:43 Protonix - PO 40 mg DAILY YESENIA Administration No pending micro Relevent Imaging - 03/27 carotid doppler - No hemodynamically significant plaque or stenosis 03/27 PM CTA (repeat, due to technical limitations in AM CTA) - 1. Large, bilateral pulmonary emboli. 2. Consolidation/atelectasis at both lung bases, left greater than right. 3. Trace pericardial effusion. 4. Cholelithiasis. Please see above discussion. 03/27 AM CXR - Imaging reveals a weak inspiration with large heart, unfolded aorta, congestive changes and left base infiltrate. Follow-up recommended. 03/27 BL LE Duplex - 1. Occlusive deep vein thrombosis in the right popliteal vein as described above. 2. No evidence of left lower extremity deep vein thrombosis, as above. 03/28 angiogram - Improved blood flow to LLL. Residual clot noted. ASSESSMENT/PLAN: will update 57 yo woman w/ pmh of HTN, HLD and CAD who presented with a syncopal episode, SOB, N/V, found to be persistently hypoxic/hypotensive in ED, now with CTA confirmed BL PEs s/p IR-guided thrombectomy and tPA-infusion. Pt hemodynamically stable, off tpa infusion, currently off O2 therapy with significantly improved respiratory status. 1. Bilateral pulmonary embolism - Pt completed tPA infusion last week. Angiogram on 03/28 with improved blood flow to left lower lobe still with residual clot. Refused IVC filter after being advised of indication, risks and benefits; discussed with nephmarques who is an MD; elected for long-term AC. - Start Coumadin 5mg daily today - Heparin gtt protocol - Will likely require lifelong AC. - Residual DVT in R popliteal vein. Pt and nephew counseled about need for IVC filter, refused. Will treat with long-term AC. - Coagulation work-up as outpt 2. Acute hypoxic respiratory failure - Pt satting in 96% on RA. No further SOB, very mild PERDUE. Clear for ambulation bed to chair today. - O2 therapy via NC if needed. Maintain sat >90% - Close monitoring of respiratory status 3. Possible PNA/leukocystosis - Possible infiltrate/PNA on imaging at left lung base. - Day 4 of 7 rocephin for suspected CAP. D/c azithro. - WBC downtrending 17.8 -> 14.5 today - Febrile to 100.6 on 03/28 night. - Trend fever, wbc 4. Syncopal episode - Cardiac monitoring - fall risk precautions - Carotid u/s neg for stenosis/plaque - f/u echo 5. Elevated troponins - 2.07 -> 0.43 03/29. BNP 5300~ on admission - Has since resolved - Cardiology following - Continue ASA, statin 6. CAD - coronary stents in 2014 - ASA 81mg PO daily - f/u lipid profile - resuming home Toprol xl 25 PO 7. HTN - hypertensive to 175 systolic this AM. Corrected with AM meds. - started Norvasc 5mg today 8. HLD - lipitor 80mg PO hS 9. MARCO - Trend BUN/Cr - Avoid nephrotoxic agents. Limit contrast exposure. - off IVFs 10. Hypernatremia - Still with persistent hyperna, 149 this AM - Trend Na - Repeat BMP tomorrow 11. Constipation - Started on senna, prune juice today PPX: - Heparin gtt - Protonix 40 mg PO FEN Fluids: PO hydration. Electrolytes: Daily BMP. Trend BUN/Cr Nutrition: Cardiac diet Dispo - Dispo to telemetry for further management given clinical improvement. Plan discussed with attending, Dr. Timothy Will, PGY1 Visit type - Emergency Visit Emergency Visit: No - New Patient This patient is new to me today: No - Critical Care Critical Care patient: Yes Total Critical Care Time (in minutes): 35 Critical Care Statement: The care of this patient involved high complexity decision making to prevent further life threatening deterioration of the patient 's condition and/or to evaluate & treat vital organ system(s) failure or risk of failure.
[2017-03-31 06:51] LABS: MCH 26.8 pg (25.7-33.7); MCHC 33.2 g/dl (32.0-36.0); MEAN CELL VOLUME 80.8 fl (80-96); MEAN PLT VOLUME 8.9 fl (7.5-11.1); PLATELET COUNT 246 K/MM3 (134-434); RDW 17.1 % (11.6-15.6); WHITE BLOOD COUNT 14.5 K/mm3 (4.0-10.0)
[2017-03-31 08:02] LABS: ALBUMIN 1.7 g/dl (3.4-5.0); ANION GAP 7 (8-16); CALCIUM 8.1 mg/dL (8.5-10.1); CO2 27 mmol/L (21-32); CREATININE 0.7 mg/dL (0.55-1.02); GLUCOSE,RANDOM 102 mg/dL (74-106); SGOT/AST 25 U/L (15-37); SGPT/ALT 28 U/L (12-78)
[2017-03-31 08:04] LABS: ALK PHOS 55 U/L (45-117); BILIRUBIN,TOTAL 0.4 mg/dL (0.2-1.0)
[2017-03-31] MEDS: ASPIRIN 81 MG CHEWABLE TABLETS PO SCH (09:18)
[2017-03-31] MEDS: CEFTRIAXONE 1 G/50 ML PREMIX 50 ML IVPB SCH (09:19)
[2017-03-31] MEDS: PANTOPRAZOLE 40 MG TABLET (FP) PO SCH (09:19)
[2017-03-31] MEDS: AZITHROMYCIN IVPB 500 MG in DEXTROSE 5%-WATER - 250 ML IVPB SCH (09:19)
[2017-03-31] MEDS ORDERED: POTASSIUM CHLORIDE TABS 20 MEQ TABLET.ER (FP) PO ONE (09:36)
[2017-03-31] MEDS: MUPIROCIN 2% TOPICAL OINTMENT FOR DECOLONIZATION NS SCH ×2 (09:39→21:35)
[2017-03-31] MEDS ORDERED: LISINOPRIL 10 MG TABLET (FP) PO SCH (10:00)
[2017-03-31] MEDS ORDERED: METOPROLOL SUCCINATE 25 MG TAB.SR.24H (FP) PO SCH (10:00)
[2017-03-31] MEDS: amLODIPine BESYLATE 5 MG TABLET (FP) PO SCH ×2 (10:31→10:34)
[2017-03-31 10:47] LABS: INR 1.27 (0.82-1.09); PROTHROMBIN TIME (PATIENT) 14.4 SEC (9.98-11.88)
[2017-03-31 11:01] LABS: THYROID STIMULATING HORMONE 0.07 uIU/ml (0.358-3.74)
[2017-03-31] MEDS: WARFARIN NA 5 MG TABLET (UD) PO SCH ×2 (11:13→17:43)
--- NOTE | 2017-03-31 12:42 | PN ---
Teaching Attending Note Name of Resident: Catrachito Tolliver ATTENDING PHYSICIAN STATEMENT I saw and evaluated the patient. I reviewed the resident's note and discussed the case with the resident. I agree with the resident's findings and plan as documented. SUBJECTIVE: Patient seen and examined in the ICU. Awake and alert. No CP. SOB is better. Minimal amount of hemoptysis admixed with sputum this AM. IV Heparin infusing. Intake & Output 03/28/17 03/29/17 03/30/17 03/31/17 23:59 23:59 23:59 23:59 Intake Total 4145.5 4062 3024 661 Output Total 1300 1400 1620 700 Balance 2845.5 2662 1404 -39 Weight 212 lb 11.2 oz 215 lb 224 lb 227 lb 6 oz Last Vital Signs Temp Pulse Resp BP Pulse Ox 98.7 F 64 20 150/78 96 03/31/17 12:20 03/31/17 12:20 03/31/17 12:20 03/31/17 12:20 03/31/17 10:20 Active Medications Amlodipine Besylate (Norvasc -) 5 mg PO DAILY [facility] Last Admin: 03/31/17 10:34 Dose: Not Given Aspirin (Asa -) 81 mg PO DAILY [facility] Last Admin: 03/31/17 09:18 Dose: 81 mg Atorvastatin Calcium (Lipitor -) 80 mg PO HS [facility] Last Admin: 03/30/17 21:27 Dose: 80 mg Chlorhexidine Gluconate (Hibiclens For Decolonization -) 1 applic TP HS [facility] Last Admin: 03/30/17 21:29 Dose: Not Given Heparin Sodium (Porcine) (Heparin -) 1,000 unit IVPUSH PRN PRN PRN Reason: Heparin Heparin Sodium (Porcine) (Heparin -) 5,000 unit IVPUSH PRN PRN PRN Reason: Heparin CEFTRIAXONE 1 G/50 ML PREMIX (Ceftriaxone 1 Gm-D5w Bag) 50 mls @ 100 mls/hr IVPB DAILY [facility] Last Admin: 03/31/17 09:19 Dose: 100 mls/hr Heparin Sodium (Porcine) 25, (000 unit/ Sodium Chloride) 500 mls @ 27 mls/hr IV TITR YESENIA; 1,350 UNIT/HR PRN Reason: Protocol Last Titration: 03/31/17 09:19 Dose: 1,150 unit/hr, 23 mls/hr Metoprolol Succinate (Toprol Xl -) 25 mg PO DAILY [facility] Last Admin: 03/31/17 09:35 Dose: 25 mg Mupirocin (Bactroban Ointment (For Decolonization) -) 1 applic NS BID [facility] Stop: 04/01/17 21:59 Last Admin: 03/31/17 09:39 Dose: 1 applic Pantoprazole Sodium (Protonix -) 40 mg PO DAILY [facility] Last Admin: 03/31/17 09:19 Dose: 40 mg Warfarin Sodium (Coumadin -) 5 mg PO DAILY@1800 [facility] Last Admin: 03/31/17 11:13 Dose: 5 mg Gen: Awake and alert, NAD Heart: RRR Lung: decreased breath sounds at the bases Abd: soft, nontender Ext: no edema Laboratory Results - last 24 hr 03/31/17 03/31/17 03/31/17 05:00 05:00 05:00 WBC 14.5 H RBC 4.15 Hgb 11.1 Hct 33.5 MCV 80.8 MCH 26.8 MCHC 33.2 RDW 17.1 H Plt Count 246 MPV 8.9 Manual Slide Review No Result Required. PT with INR INR PTT (Actin FS) 66.7 H Sodium 149 H Potassium 3.4 L Chloride 115 H Carbon Dioxide 27 Anion Gap 7 L BUN 14 Creatinine 0.7 Creat Clearance w eGFR > 60 Random Glucose 102 Calcium 8.1 L Total Bilirubin 0.4 D AST 25 D ALT 28 D Alkaline Phosphatase 55 Total Protein 5.0 L Albumin 1.7 L TSH 0.07 L 03/31/17 03/31/17 05:00 10:40 WBC RBC Hgb Hct MCV MCH MCHC RDW Plt Count MPV Manual Slide Review PT with INR 14.40 H INR 1.27 H PTT (Actin FS) Sodium Potassium Chloride Carbon Dioxide Anion Gap BUN Creatinine Creat Clearance w eGFR Random Glucose Calcium Total Bilirubin AST ALT Alkaline Phosphatase Total Protein Albumin TSH Cancelled ASSESSMENT AND PLAN: Massive Acute Pulmonary Emboli s/p catheter directed thrombolysis R DVT Lung infiltrate likely pulmonary infarct versus PNA +Troponins - IV Heparin with close monitoring of PTT - Coumadin - O2 to keep SpO2 >90% - Rocephin for suspected PNA - D/C IVF - Titrate BP meds - Cardiac Telemetry monitoring Dr Braswell Critical care time spent in reviewing chart, evaluating patient and formulating plan 35 min
--- NOTE | 2017-03-31 14:02 | PN ---
Physical Exam: SUBJECTIVE: The patient is a 57F with a PMH of HTN, HLD, CAD s/p stent placement 2 years ago who presented with worsening SOB and syncopal episode. The patient was found to have multiple PE's and is s/p direct-catheter thrombectomy. Today the patient denies SOB, CP, nausea, vomiting but states that she continues to have a cough. OBJECTIVE: Vital Signs Period Temp Pulse Resp BP Sys/Shields Pulse Ox Last 24 Hr 98.0 F-98.9 F 58-93 18-20 106-175/65-93 95-96 GENERAL: The patient is awake, alert, and fully oriented, in no acute distress. HEAD: Normal with no signs of trauma. EYES: PERRL, extraocular movements intact, sclera anicteric, conjunctiva clear. No ptosis. ENT: Ears normal, nares patent, oropharynx clear without exudates, moist mucous membranes. NECK: Trachea midline, full range of motion, supple. LUNGS: Breath sounds equal, clear to auscultation bilaterally, no wheezes, no crackles, no accessory muscle use. HEART: Regular rate and rhythm, S1, S2 without murmur, rub or gallop. ABDOMEN: Soft, nontender, nondistended, normoactive bowel sounds, no guarding, no rebound, no hepatosplenomegaly, no masses. EXTREMITIES: 2+ pulses, warm, well-perfused, no edema. NEUROLOGICAL: Cranial nerves II through XII grossly intact. Normal speech, gait not observed. PSYCH: Normal mood, normal affect. SKIN: Warm, dry, normal turgor, no rashes or lesions noted Laboratory Results - last 24 hr 03/31/17 03/31/17 03/31/17 05:00 05:00 05:00 WBC 14.5 H RBC 4.15 Hgb 11.1 Hct 33.5 MCV 80.8 MCH 26.8 MCHC 33.2 RDW 17.1 H Plt Count 246 MPV 8.9 Manual Slide Review No Result Required. PT with INR INR PTT (Actin FS) 66.7 H Sodium 149 H Potassium 3.4 L Chloride 115 H Carbon Dioxide 27 Anion Gap 7 L BUN 14 Creatinine 0.7 Creat Clearance w eGFR > 60 Random Glucose 102 Calcium 8.1 L Total Bilirubin 0.4 D AST 25 D ALT 28 D Alkaline Phosphatase 55 Total Protein 5.0 L Albumin 1.7 L TSH 0.07 L 03/31/17 03/31/17 05:00 10:40 WBC RBC Hgb Hct MCV MCH MCHC RDW Plt Count MPV Manual Slide Review PT with INR 14.40 H INR 1.27 H PTT (Actin FS) Sodium Potassium Chloride Carbon Dioxide Anion Gap BUN Creatinine Creat Clearance w eGFR Random Glucose Calcium Total Bilirubin AST ALT Alkaline Phosphatase Total Protein Albumin TSH Cancelled Active Medications Generic Name Dose Route Start Last Admin Trade Name Freq PRN Reason Stop Dose Admin Amlodipine Besylate 5 mg 03/31/17 09:45 03/31/17 10:34 Norvasc - PO Not Given DAILY [facility] Aspirin 81 mg 03/28/17 10:00 03/31/17 09:18 Asa - PO 81 mg DAILY [facility] Administration Atorvastatin Calcium 80 mg 03/27/17 22:00 03/30/17 21:27 Lipitor - PO 80 mg HS [facility] Administration Chlorhexidine Gluconate 1 applic 03/27/17 22:00 03/30/17 21:29 Hibiclens For Decolonization - TP Not Given HS [facility] Heparin Sodium (Porcine) 1,000 unit 03/27/17 16:40 Heparin - IVPUSH PRN PRN Heparin Heparin Sodium (Porcine) 5,000 unit 03/27/17 16:40 Heparin - IVPUSH PRN PRN Heparin CEFTRIAXONE 1 G/50 ML PREMIX 50 mls @ 100 mls/hr 03/28/17 10:00 03/31/17 09: 19 Ceftriaxone 1 Gm-D5w Bag IVPB 100 mls/hr DAILY [facility] Administration Heparin Sodium (Porcine) 25, 500 mls @ 27 mls/hr 03/27/17 16:40 03/31/17 09: 19 000 unit/ Sodium Chloride IV 1,150 unit/hr TITR YESENIA 23 mls/hr Protocol Titration 1,350 UNIT/HR Metoprolol Succinate 25 mg 03/31/17 10:00 03/31/17 09:35 Toprol Xl - PO 25 mg DAILY [facility] Administration Mupirocin 1 applic 03/27/17 22:00 03/31/17 09:39 Bactroban Ointment (For Decolonization) - NS 04/01/17 21:59 1 applic BID [facility] Administration Pantoprazole Sodium 40 mg 03/28/17 10:00 11/27/17 09:19 Protonix - PO 40 mg DAILY [facility] Administration Warfarin Sodium 5 mg 03/31/17 10:00 03/31/17 11:13 Coumadin - PO 5 mg DAILY@1800 [facility] Administration ASSESSMENT/PLAN: The patient is a 57F with a PMH of HTN, HLD, CAD s/p stents who presents with multiple PE's s/p catheter directed TPA, currently on TPA drip. Neuro: - A&Ox3 - At baseline CV: HTN - Continue home medications (HCTZ, toprol, lisinopril) - Echo shows RV volume overload and McConnel's sign - Carefully watch I/O's - Troponin decreased from 2.07, now 0.43 Pulm: Multiple PE's - TPA drip d/c - Now starting on heparin Renal: MARCO - Resolved; current BUN/Cr 14/0.7 : - None GI: - None ID: - None Hem/Onc: - None Endocrine: - None MSK: - None PPX: - None FEN (Fluids, electrolytes, nutrition): - Chol/fat/sodium restricted diet Dispo: - Transfer to tele Visit type - Emergency Visit Emergency Visit: Yes ED Registration Date: 03/27/17 Care time: The patient presented to the Emergency Department on the above date and was hospitalized for further evaluation of their emergent condition. - New Patient This patient is new to me today: No - Critical Care Critical Care patient: Yes Total Critical Care Time (in minutes): 45 Critical Care Statement: The care of this patient involved high complexity decision making to prevent further life threatening deterioration of the patient 's condition and/or to evaluate & treat vital organ system(s) failure or risk of failure.
[2017-03-31] MEDS ORDERED: DOCUSATE SODIUM 100 MG CAPSULE (FP) PO PRN (14:59)
--- NOTE | 2017-03-31 16:23 | PN ---
Progress Note (short form) - Note Progress Note: Chief Complaint: PE History of Present Illness: no sob no cp, palpit, syncope Current Medications Generic Name Dose Route Start Last Admin Trade Name Kelvin PRN Reason Stop Dose Admin Amlodipine Besylate 5 mg 03/31/17 09:45 03/31/17 10:34 Norvasc - PO Not Given DAILY [facility] Aspirin 81 mg 03/28/17 10:00 03/31/17 09:18 Asa - PO 81 mg DAILY [facility] Administration Atorvastatin Calcium 80 mg 03/27/17 22:00 03/30/17 21:27 Lipitor - PO 80 mg HS [facility] Administration Chlorhexidine Gluconate 1 applic 03/27/17 22:00 03/30/17 21:29 Hibiclens For Decolonization - TP Not Given HS [facility] Docusate Sodium 100 mg 03/31/17 14:59 Colace - PO Q12H PRN CONSTIPATION Heparin Sodium (Porcine) 1,000 unit 03/27/17 16:40 Heparin - IVPUSH PRN PRN Heparin Heparin Sodium (Porcine) 5,000 unit 03/27/17 16:40 Heparin - IVPUSH PRN PRN Heparin CEFTRIAXONE 1 G/50 ML PREMIX 50 mls @ 100 mls/hr 03/28/17 10:00 03/31/17 09: 19 Ceftriaxone 1 Gm-D5w Bag IVPB 100 mls/hr DAILY [facility] Administration Heparin Sodium (Porcine) 25, 500 mls @ 27 mls/hr 03/27/17 16:40 03/31/17 09: 19 000 unit/ Sodium Chloride IV 1,150 unit/hr TITR [facility]EN[facility] 23 mls/hr Protocol Titration 1,350 UNIT/HR Metoprolol Succinate 25 mg 03/31/17 10:00 03/31/17 09:35 Toprol Xl - PO 25 mg DAILY [facility] Administration Mupirocin 1 applic 03/27/17 22:00 03/31/17 09:39 Bactroban Ointment (For Decolonization) - NS 04/01/17 21:59 1 applic BID [facility] Administration Pantoprazole Sodium 40 mg 03/28/17 10:00 03/31/17 09:19 Protonix - PO 40 mg DAILY [facility] Administration Warfarin Sodium 5 mg 03/31/17 10:00 03/31/17 11:13 Coumadin - PO 5 mg DAILY@1800 [facility] Administration - Objective Vital Signs: Vital Signs (72 hours) 03/28/17 03/28/17 03/28/17 16:44 17:30 18:17 Temperature 99.4 F 99.8 F H 100 F H Pulse Rate 87 88 92 H Respiratory 20 20 20 Rate Blood Pressure 120/66 119/69 138/75 O2 Sat by Pulse Oximetry (%) 03/28/17 03/28/17 03/28/17 18:35 20:00 21:00 Temperature 100.1 F H 100.6 F H Pulse Rate 87 82 Respiratory 19 20 Rate Blood Pressure 135/72 130/72 O2 Sat by Pulse 98 Oximetry (%) 03/28/17 03/29/17 03/29/17 22:25 00:19 02:00 Temperature 99.1 F Pulse Rate 78 79 Respiratory 16 18 Rate Blood Pressure 131/70 119/65 O2 Sat by Pulse 98 Oximetry (%) 03/29/17 03/29/17 03/29/17 04:00 06:00 08:00 Temperature 99.3 F 99 F Pulse Rate 80 79 88 Respiratory 16 19 20 Rate Blood Pressure 122/62 122/68 146/80 O2 Sat by Pulse Oximetry (%) 03/29/17 03/29/17 03/29/17 09:00 10:00 12:00 Temperature 99 F 99.0 F Pulse Rate 82 84 Respiratory 20 18 Rate Blood Pressure 123/61 O2 Sat by Pulse 99 99 Oximetry (%) 03/29/17 03/29/17 03/29/17 13:51 16:00 18:00 Temperature 99 F 99.2 F 98.6 F Pulse Rate 90 82 86 Respiratory 20 20 20 Rate Blood Pressure 131/71 135/72 128/67 O2 Sat by Pulse Oximetry (%) 03/29/17 03/29/17 03/29/17 20:00 21:00 22:00 Temperature 98.4 F Pulse Rate 87 79 Respiratory 20 20 Rate Blood Pressure 147/66 134/69 O2 Sat by Pulse 99 Oximetry (%) 03/30/17 03/30/17 03/30/17 00:00 02:00 04:00 Temperature 98.2 F Pulse Rate 75 69 71 Respiratory 22 18 18 Rate Blood Pressure 133/71 130/67 130/74 O2 Sat by Pulse Oximetry (%) 03/30/17 03/30/17 03/30/17 06:00 09:30 11:02 Temperature 98.3 F 98.6 F 98.9 F Pulse Rate 74 79 78 Respiratory 18 23 18 Rate Blood Pressure 151/78 163/70 154/70 O2 Sat by Pulse Oximetry (%) 03/30/17 03/30/17 03/30/17 12:00 13:00 13:35 Temperature 98.7 F Pulse Rate 74 77 78 Respiratory 20 18 18 Rate Blood Pressure 132/71 131/71 132/71 O2 Sat by Pulse Oximetry (%) 03/30/17 03/30/17 03/30/17 14:07 14:56 17:00 Temperature 98.9 F 98.4 F Pulse Rate 72 73 86 Respiratory 19 19 19 Rate Blood Pressure 128/65 128/65 106/76 O2 Sat by Pulse Oximetry (%) 03/30/17 03/30/17 03/30/17 19:09 20:00 20:53 Temperature 98.8 F Pulse Rate 79 93 H Respiratory 19 18 Rate Blood Pressure 138/71 151/74 O2 Sat by Pulse 96 Oximetry (%) 03/30/17 03/31/17 03/31/17 22:00 00:00 01:45 Temperature 98.3 F 98.6 F Pulse Rate 72 71 64 Respiratory 18 20 20 Rate Blood Pressure 160/84 155/75 135/76 O2 Sat by Pulse Oximetry (%) 03/31/17 03/31/17 03/31/17 02:00 04:00 06:00 Temperature 98.4 F 98.0 F Pulse Rate 58 L 71 68 Respiratory 20 20 20 Rate Blood Pressure 155/77 167/93 163/81 O2 Sat by Pulse Oximetry (%) 03/31/17 03/31/17 03/31/17 08:00 10:00 10:20 Temperature 98.8 F 98.6 F Pulse Rate 63 68 67 Respiratory 20 19 Rate Blood Pressure 175/80 167/75 O2 Sat by Pulse 96 96 Oximetry (%) 03/31/17 03/31/17 03/31/17 12:00 13:53 14:04 Temperature 98.7 F 98.6 F 98.5 F Pulse Rate 86 88 71 Respiratory 18 18 18 Rate Blood Pressure 150/78 135/76 132/68 O2 Sat by Pulse Oximetry (%) 03/31/17 16:00 Temperature 98.7 F Pulse Rate 73 Respiratory 18 Rate Blood Pressure 136/68 O2 Sat by Pulse Oximetry (%) Constitutional: Yes: No Distress, Calm, Obese Cardiovascular: Yes: Regular Rate and Rhythm, S1, S2. No: Gallop, Murmur Respiratory: Yes: Regular, CTA Bilaterally. No: Accessory Muscle Use, Wheezes Extremities: No: Cold Edema: No Neurological: Yes: Alert, Oriented Psychiatric: No: Agitated no jaundice diaphoresis Labs: CBC, BMP 03/31/17 05:00 03/31/17 05:00 - ....Imaging EKG: Other (tele: SR) EKG x2: sinus tach. septal infarct. non-specific t wave ab echo: nl lv size/fn. RV dilation and decreased function with concern for right heart strain. see emr for full report chest cta: large bl pe's a/p: 57 year old with h/o HTN, HLD, and CAD (s/p stent placement 2 years prior) presents with syncope, persistent hypoxia, hypotension now with new dvt and PE. right heart strain with new dvt and b/l pe's. - large bl pe's on cta, s/p catheter thrombolysis by IR, and ivc filter for large dvt - on AC per pulm/critical care - Echo findings c/w for PE with right heart strain, no signs of right sided chf ; hemodynamically stable - duration of AC per pulm +/- heme (? unprovoked event) cad s/p remote pci, pos trops - troponin elevation here likely secondary to acute RV strain from PE. - nonspecific TWAs on ekg, similar on repeat (no old to compare) - trop peaked at 2.0, trending down now - no clinical sx's of acute myocardial ischemia process at present--observe - cont home ASA, atorva, bb as doing - not on YOUNG at home per pt - follows with dr golden for outpt cardio (and for YOUNG/BB dose reconcilitation/ titration) HTN - cont bb, ccb pulm infiltrate: -suspected infarction > pna per pulm team--defer abx to them
[2017-03-31] MEDS: HEPARIN - 25,000 UNIT in SODIUM CHLORIDE 495 ML IV SCH ×2 (16:40→18:37)
[2017-03-31] MEDS ORDERED: HEPARIN NA (PORCINE) 5,000 UNITS/ML 1ML VIAL IVPUSH PRN ×4 (18:37)
--- NOTE | 2017-03-31 20:20 | PN ---
Teaching Attending Note Name of Resident: Chavo Will ATTENDING PHYSICIAN STATEMENT I saw and evaluated the patient. I reviewed the resident's note and discussed the case with the resident. I agree with the resident's findings and plan as documented. SUBJECTIVE: Patient is better, continues to have mild pleuritic chest pain better than before, denies any shortness of breath. OBJECTIVE: Vital Signs Temperature 98.6 F 03/31/17 18:00 Pulse Rate 75 03/31/17 18:30 Respiratory Rate 25 H 03/31/17 18:30 Blood Pressure 125/72 03/31/17 18:30 O2 Sat by Pulse Oximetry (%) 96 03/31/17 10:20 CBCD WBC 14.5 K/mm3 (4.0-10.0) H 03/31/17 05:00 RBC 4.15 M/mm3 (3.60-5.2) 03/31/17 05:00 Hgb 11.1 GM/dL (10.7-15.3) 03/31/17 05:00 Hct 33.5 % (32.4-45.2) 03/31/17 05:00 MCV 80.8 fl (80-96) 03/31/17 05:00 MCHC 33.2 g/dl (32.0-36.0) 03/31/17 05:00 RDW 17.1 % (11.6-15.6) H 03/31/17 05:00 Plt Count 246 K/MM3 (134-434) 03/31/17 05:00 MPV 8.9 fl (7.5-11.1) 03/31/17 05:00 CMP Sodium 149 mmol/L (136-145) H 03/31/17 05:00 Potassium 3.4 mmol/L (3.5-5.1) L 03/31/17 05:00 Chloride 115 mmol/L (98-107) H 03/31/17 05:00 Carbon Dioxide 27 mmol/L (21-32) 03/31/17 05:00 Anion Gap 7 (8-16) L 03/31/17 05:00 BUN 14 mg/dL (7-18) 03/31/17 05:00 Creatinine 0.7 mg/dL (0.55-1.02) 03/31/17 05:00 Creat Clearance w eGFR > 60 (>60) 03/31/17 05:00 Random Glucose 102 mg/dL (74-106) 03/31/17 05:00 Calcium 8.1 mg/dL (8.5-10.1) L 03/31/17 05:00 Total Bilirubin 0.4 mg/dL (0.2-1.0) D 03/31/17 05:00 AST 25 U/L (15-37) D 03/31/17 05:00 ALT 28 U/L (12-78) D 03/31/17 05:00 Alkaline Phosphatase 55 U/L (45-117) 03/31/17 05:00 Total Protein 5.0 g/dl (6.4-8.2) L 03/31/17 05:00 Albumin 1.7 g/dl (3.4-5.0) L 03/31/17 05:00 CARDIAC ENZYMES Creatine Kinase 61 IU/L (26-192) 03/29/17 05:05 Troponin I 0.43 ng/ml (0.00-0.05) H 03/29/17 05:05 Current Medications Generic Name Dose Route Start Last Admin Trade Name Freq PRN Reason Stop Dose Admin Amlodipine Besylate 5 mg 04/01/17 10:00 Norvasc - PO DAILY [facility] Aspirin 81 mg 04/01/17 10:00 Asa - PO DAILY [facility] Atorvastatin Calcium 80 mg 03/31/17 22:00 Lipitor - PO HS [facility] Chlorhexidine Gluconate 1 applic 03/31/17 22:00 Hibiclens For Decolonization - TP [facility] Docusate Sodium 100 mg 03/31/17 14:59 03/31/17 17:48 Colace - PO 100 mg Q12H PRN Administration CONSTIPATION Heparin Sodium (Porcine) 1,000 unit 03/31/17 18:37 Heparin - IVPUSH PRN PRN Heparin Heparin Sodium (Porcine) 5,000 unit 03/31/17 18:37 Heparin - IVPUSH PRN PRN Heparin CEFTRIAXONE 1 G/50 ML PREMIX 50 mls @ 100 mls/hr 04/01/17 10:00 Ceftriaxone 1 Gm-D5w Bag IVPB DAILY [facility] Heparin Sodium (Porcine) 25, 500 mls @ 23 mls/hr 03/31/17 18:37 03/31/17 18: 37 000 unit/ Sodium Chloride IV Not Given TITR [facility] Protocol 1,150 UNIT/HR Metoprolol Succinate 25 mg 04/01/17 10:00 Toprol Xl - PO DAILY [facility] Mupirocin 1 applic 03/31/17 22:00 Bactroban Ointment (For Decolonization) - NS 04/01/17 21:59 BID [facility] Pantoprazole Sodium 40 mg 04/01/17 10:00 Protonix - PO DAILY [facility] Warfarin Sodium 5 mg 04/01/17 18:00 Coumadin - PO DAILY@1800 [facility] Home Medications Medication Instructions Recorded Aspirin [Neli Chewable] 81 mg PO DAILY 03/27/17 Atorvastatin Ca [Lipitor] 80 mg PO HS 03/27/17 Hydrochlorothiazide [Hctz -] 25 mg PO DAILY 03/27/17 Lisinopril [Prinivil] 20 mg PO DAILY 03/27/17 Metoprolol Tartrate 25 mg PO BID 03/27/17 Pantoprazole Sodium 40 mg PO DAILY 03/27/17 PE: per resident' note LUE: less tender, swelling is reduced ASSESSMENT AND PLAN: #Patient is a 57 y/o pleasant lady with h/o HTN, HLP, CAD s/p stents placed 2 yrs ago, and recent treatment for CAP ( , and 2 weeks) # Acute Massive BL PE Unprovoked with FHx of PE s/p catheter directed Alteplase thrombolysis, RLE DVT. On heparin drip continue, started the patient on Coumadin 5mg , pt/inr daily. Patient can be Txed out of the ICU. Patient needs further w/u upon discharge with line controller. # Elevated Troponins most likely due to PE (heart strain on ECho). Doubt NSTEMI on alteplase thrombolysis, cardio on the case. On statins 80mg continue # s/p hypoxic resp failure due to BL PE on Heparin drip and on Coumadin po. # Positive Infiltrate most likely due to pulmonary infarction on CT ;doubt Pneumonia but will continue one more day of IV antibiotic. # Syncope : due to BL PE # H/O HTN: will continue her Lopressor DVT Px; Heparin /coumdin
[2017-03-31] MEDS: CHLORHEXIDINE GLUCONATE 4% CLEANSER FOR DECOLONIZATION TP SCH (21:35)
[2017-03-31] MEDS: ATORVASTATIN CA 80 MG TABLET (FP) PO SCH (21:35)
--- NOTE | 2017-03-31 23:19 | EKG ---
Test Reason : Blood Pressure : / mmHG Vent. Rate : 098 BPM Atrial Rate : 098 BPM P-R Int : 142 ms QRS Dur : 078 ms QT Int : 370 ms P-R-T Axes : 064 021 034 degrees QTc Int : 472 ms NORMAL SINUS RHYTHM ANTERIOR INFARCT , AGE UNDETERMINED ABNORMAL ECG WHEN COMPARED WITH ECG OF 27-MAR-2017 09:29, NO SIGNIFICANT CHANGE WAS FOUND Confirmed by ELFEGO DORMAN MD ([id number]) on 03/31/2017 11:19:26 PM Referred By: Confirmed By:ELFEGO DORMAN MD
[2017-04-01 06:21] LABS: BASOPHIL 0.3 % (0-2.0); EOSINOPHIL 0.1 % (0-4.5); MCH 26.2 pg (25.7-33.7); MCHC 32.6 g/dl (32.0-36.0); MEAN CELL VOLUME 80.3 fl (80-96); MEAN PLT VOLUME 8.1 fl (7.5-11.1); PLATELET COUNT 255 K/MM3 (134-434); RDW 16.7 % (11.6-15.6); WHITE BLOOD COUNT 14.2 K/mm3 (4.0-10.0)
[2017-04-01 06:38] LABS: INR 1.27 (0.82-1.09); PROTHROMBIN TIME (PATIENT) 14.4 SEC (9.98-11.88)
[2017-04-01 07:09] LABS: ALBUMIN 1.8 g/dl (3.4-5.0); ANION GAP 5 (8-16); CALCIUM 8.2 mg/dL (8.5-10.1); CO2 28 mmol/L (21-32); CREATININE 0.7 mg/dL (0.55-1.02); GLUCOSE,RANDOM 105 mg/dL (74-106); SGOT/AST 37 U/L (15-37); SGPT/ALT 42 U/L (12-78)
[2017-04-01 07:19] LABS: ALK PHOS 56 U/L (45-117); BILIRUBIN,TOTAL 0.5 mg/dL (0.2-1.0); PHOSPHOROUS 2.4 mg/dL (2.5-4.9); THYROID STIMULATING HORMONE 0.22 uIU/ml (0.358-3.74); TOT PROT 5.4 g/dl (6.4-8.2)
--- NOTE | 2017-04-01 07:22 | PN ---
Physical Exam: SUBJECTIVE: Patient seen and examined No major overnight events. Complaining of persistent nonproductive cough, denies any further hemoptysis or pink sputum. - able to ambulate to chair yesterday with minimal assistance. States her legs "dont feel like my own". Denies any dizziness, vision changes, palpitations, N/V , peripheral edema or rashes. Endorses mild intermittent PALOMINO, L sided pleuritic chest pain, persistent constipation/abdominal distension. Endorses some mild PERDUE with movement. - No BMs overnight. Eating well, good sleep OBJECTIVE: Vital Signs Intake & Output 03/29/17 03/30/17 03/31/17 04/01/17 23:59 23:59 23:59 23:59 Intake Total 4062 3024 911 376 Output Total 1400 1620 700 Balance 2662 1404 211 376 Weight 97.522 kg 101.605 kg 103.136 kg 104.372 kg Period Temp Pulse Resp BP Sys/Shields Pulse Ox Last 24 Hr 98.4 F-99 F 57-88 18-25 125-175/68-85 95-98 GENERAL: Patient is A&Ox3. Lying in bed in no acute distress. HEAD: NCAT ENT: Ears normal, nares patent, oropharynx clear without exudates, moist mucous membranes. NECK: Trachea midline, full range of motion, supple. No JVD noted. Still R neck dressing with no bleeding, oozing or erythema. LUNGS: Still with bibasilar crackles. BL wheezing noted in upper airways. No accessory muscle use. HEART: Regular rate and rhythm, S1, S2. S3 again noted. No other murmur, rub or gallop appreciated. ABDOMEN: Soft, nontender, nondistended, normoactive bowel sounds, no guarding, no rebound. Upper EXTREMITIES: 2+ pulses, warm, well-perfused, no edema. Lower extremities: 2+ DP, PT pulses bilaterally. 1+ nonpitting edema BL. WWP. Pain to palpation on anterior ankle. No bony deformities, swelling, erythema or lesions noted at this location. NEUROLOGICAL: Cranial nerves II through XII grossly intact. Normal speech, gait not observed. PSYCH: Appropriate affect. Interactive, good mood. Laboratory Results - last 24 hr CBC, BMP 04/01/17 05:00 04/01/17 05:00 Laboratory Results - last 24 hr 03/31/17 03/31/17 03/31/17 05:00 05:00 05:00 WBC RBC Hgb Hct MCV MCH MCHC RDW Plt Count MPV Neutrophils % Lymphocytes % Monocytes % Eosinophils % Basophils % Manual Slide Review No Result Required. PT with INR INR PTT (Actin FS) Sodium 149 H Potassium 3.4 L Chloride 115 H Carbon Dioxide 27 Anion Gap 7 L BUN 14 Creatinine 0.7 Creat Clearance w eGFR > 60 Random Glucose 102 Calcium 8.1 L Phosphorus Magnesium Total Bilirubin 0.4 D AST 25 D ALT 28 D Alkaline Phosphatase 55 Total Protein 5.0 L Albumin 1.7 L TSH 0.07 L Cancelled Free T4 03/31/17 04/01/17 04/01/17 10:40 05:00 05:00 WBC 14.2 H RBC 4.28 Hgb 11.2 Hct 34.4 MCV 80.3 MCH 26.2 MCHC 32.6 RDW 16.7 H Plt Count 255 MPV 8.1 Neutrophils % 84.0 H Lymphocytes % 10.7 D Monocytes % 4.9 Eosinophils % 0.1 Basophils % 0.3 Manual Slide Review PT with INR 14.40 H 14.40 H INR 1.27 H 1.27 H PTT (Actin FS) Sodium Potassium Chloride Carbon Dioxide Anion Gap BUN Creatinine Creat Clearance w eGFR Random Glucose Calcium Phosphorus Magnesium Total Bilirubin AST ALT Alkaline Phosphatase Total Protein Albumin TSH Free T4 04/01/17 04/01/17 04/01/17 05:00 05:00 05:00 WBC RBC Hgb Hct MCV MCH MCHC RDW Plt Count MPV Neutrophils % Lymphocytes % Monocytes % Eosinophils % Basophils % Manual Slide Review PT with INR INR PTT (Actin FS) 67.1 H Sodium 148 H Potassium 3.5 Chloride 115 H Carbon Dioxide 28 Anion Gap 5 L BUN 11 D Creatinine 0.7 Creat Clearance w eGFR > 60 Random Glucose 105 Calcium 8.2 L Phosphorus 2.4 L Magnesium 2.0 Total Bilirubin 0.5 D AST 37 D ALT 42 D Alkaline Phosphatase 56 Total Protein 5.4 L Albumin 1.8 L TSH 0.22 L D Free T4 1.05 Active Medications Generic Name Dose Route Start Last Admin Trade Name Freq PRN Reason Stop Dose Admin Amlodipine Besylate 5 mg 04/01/17 10:00 Norvasc - PO DAILY [facility] Aspirin 81 mg 04/01/17 10:00 Asa - PO DAILY [facility] Atorvastatin Calcium 80 mg 03/31/17 22:00 03/31/17 21:35 Lipitor - PO 80 mg HS [facility] Administration Chlorhexidine Gluconate 1 applic 03/31/17 22:00 03/31/17 21:35 Hibiclens For Decolonization - TP 1 applic HS [facility] Administration Docusate Sodium 100 mg 03/31/17 14:59 03/31/17 17:48 Colace - PO 100 mg Q12H PRN Administration CONSTIPATION Heparin Sodium (Porcine) 1,000 unit 03/31/17 18:37 Heparin - IVPUSH PRN PRN Heparin Heparin Sodium (Porcine) 5,000 unit 03/31/17 18:37 Heparin - IVPUSH PRN PRN Heparin CEFTRIAXONE 1 G/50 ML PREMIX 50 mls @ 100 mls/hr 04/01/17 10:00 Ceftriaxone 1 Gm-D5w Bag IVPB DAILY [facility] Heparin Sodium (Porcine) 25, 500 mls @ 23 mls/hr 03/31/17 18:37 03/31/17 18: 37 000 unit/ Sodium Chloride IV Not Given TITR [facility] Protocol 1,150 UNIT/HR Metoprolol Succinate 25 mg 04/01/17 10:00 Toprol Xl - PO DAILY [facility] Mupirocin 1 applic 03/31/17 22:00 03/31/17 21:35 Bactroban Ointment (For Decolonization) - NS 04/01/17 21:59 1 applic BID [facility] Administration Pantoprazole Sodium 40 mg 04/01/17 10:00 Protonix - PO DAILY [facility] Warfarin Sodium 5 mg 04/01/17 18:00 Coumadin - PO DAILY@1800 [facility] No pending micro Relevent Imaging - 03/27 carotid doppler - No hemodynamically significant plaque or stenosis 03/27 PM CTA (repeat, due to technical limitations in AM CTA) - 1. Large, bilateral pulmonary emboli. 2. Consolidation/atelectasis at both lung bases, left greater than right. 3. Trace pericardial effusion. 4. Cholelithiasis. Please see above discussion. 03/27 AM CXR - Imaging reveals a weak inspiration with large heart, unfolded aorta, congestive changes and left base infiltrate. Follow-up recommended. 03/27 BL LE Duplex - 1. Occlusive deep vein thrombosis in the right popliteal vein as described above. 2. No evidence of left lower extremity deep vein thrombosis, as above. 03/28 angiogram - Improved blood flow to LLL. Residual clot noted. ECHO 03/28 - Moderate RV function. Moderate TR, Mild MR. Moderate pulm htn. EF 67% ASSESSMENT/PLAN: will update 57 yo woman w/ pmh of HTN, HLD and CAD who presented with a syncopal episode, SOB, N/V, found to be persistently hypoxic/hypotensive in ED, now with CTA confirmed BL PEs s/p IR-guided thrombectomy and tPA-infusion. Pt hemodynamically stable, off tpa infusion, currently off O2 therapy with significantly improved respiratory status. 1. Bilateral pulmonary embolism - Pt completed tPA infusion last week. Angiogram on 03/28 with improved blood flow to left lower lobe still with residual clot. Refused IVC filter after being advised of indication, risks and benefits; discussed with sonny who is an MD; elected for nursing home AC. - Coumadin 5mg daily. AM INR 1.26, subtherapeutic. Given 2.5mg this AM. - Heparin gtt protocol - Will likely require lifelong AC. - Residual DVT in R popliteal vein. Pt and nephew counseled about need for IVC filter, refused. Will treat with terminologist AC. - Coagulation work-up as outpt 2. Acute hypoxic respiratory failure - Pt satting in 95-98% on RA. Plan for ambulation as tolerated. Mild PERDUE. - O2 therapy via NC if needed. Maintain sat >90% - Close monitoring of respiratory status 3. Possible PNA/leukocystosis - Possible infiltrate/PNA on imaging at left lung base. - Day 5 of 7 rocephin for suspected CAP. - WBC downtrending. 14.2 today - Febrile to 100.6 on 03/28 night. - Trend fever, wbc 4. Syncopal episode - Cardiac monitoring - fall risk precautions - Carotid u/s neg for stenosis/plaque - Echo notable for moderately decreased RV function, pulm htn. Mild MR, TR. 5. Elevated troponins - 2.07 -> 0.43 03/29. BNP 5300~ on admission - Has since resolved - Cardiology following - Continue ASA, statin 6. CAD - coronary stents in 2014 - ASA 81mg PO daily - f/u lipid profile - Toprol xl 25 PO 7. HTN - Mildly hypertensive to 150s systolic overnight. - Norvasc 5mg - On Toprol XL 25 PO 8. HLD - lipitor 80mg PO hS 9. MARCO - Trend BUN/Cr - Avoid nephrotoxic agents. Limit contrast exposure. - off IVFs 10. Hypernatremia - Still with persistent hyperna, 149 this AM - Trend Na - Repeat BMP tomorrow 11. Constipation - senna, prune juice today - Will start on miralax BID today 12. Hypokalemia -3.5 this AM. Repleted 40 KCl PO 13. L arm hematoma - Instructed to elevated arm at rest - Ordered for warm compresses PPX: - Heparin gtt, coumadin - Protonix 40 mg PO FEN Fluids: PO hydration. Electrolytes: Daily BMP. Trend BUN/Cr Nutrition: Cardiac diet Dispo - Dispo to telemetry for further management given clinical improvement. Plan discussed with attending, Dr. Timothy Will, PGY1 Visit type - Emergency Visit Emergency Visit: Yes ED Registration Date: 03/27/17 Care time: The patient presented to the Emergency Department on the above date and was hospitalized for further evaluation of their emergent condition. - New Patient This patient is new to me today: No - Critical Care Critical Care patient: Yes Total Critical Care Time (in minutes): 25
[2017-04-01] MEDS ORDERED: POTASSIUM CHLORIDE TABS 20 MEQ TABLET.ER (FP) PO ONE ×2 (08:09→11:15)
[2017-04-01] MEDS ORDERED: CEFTRIAXONE 1 G/50 ML PREMIX 50 ML IVPB SCH (10:00)
[2017-04-01] MEDS ORDERED: PT OWN MED DRAWER 7, Y5N ONE (11:03)
[2017-04-01] MEDS: PANTOPRAZOLE 40 MG TABLET (FP) PO SCH (11:43)
[2017-04-01] MEDS: ASPIRIN 81 MG CHEWABLE TABLETS PO SCH (11:44)
[2017-04-01] MEDS: amLODIPine BESYLATE 5 MG TABLET (FP) PO SCH (11:45)
[2017-04-01] MEDS: METOPROLOL SUCCINATE 25 MG TAB.SR.24H (FP) PO SCH (11:46)
[2017-04-01] MEDS ORDERED: ACETAMINOPHEN 325 MG TABLET (FP) PO ONE (11:58)
[2017-04-01 12:02] LABS: INR 1.26 (0.82-1.09); PROTHROMBIN TIME (PATIENT) 14.2 SEC (9.98-11.88)
--- NOTE | 2017-04-01 12:06 | PN ---
Progress Note (short form) - Note Progress Note: Chief Complaint: PE History of Present Illness: BP rising overnight. toprol started yesterday. norvasc 5 mg started today. no sob, palpit, syncope. still with pleuritic cp and cough. Current Medications Amlodipine Besylate (Norvasc -) 5 mg PO DAILY [facility] Last Admin: 04/01/17 11:45 Dose: 5 mg Aspirin (Asa -) 81 mg PO DAILY [facility] Last Admin: 04/01/17 11:44 Dose: 81 mg Atorvastatin Calcium (Lipitor -) 80 mg PO HS [facility] Last Admin: 03/31/17 21:35 Dose: 80 mg Chlorhexidine Gluconate (Hibiclens For Decolonization -) 1 applic TP HS [facility] Last Admin: 03/31/17 21:35 Dose: 1 applic Docusate Sodium (Colace -) 100 mg PO Q12H PRN PRN Reason: CONSTIPATION Last Admin: 03/31/17 17:48 Dose: 100 mg Heparin Sodium (Porcine) (Heparin -) 1,000 unit IVPUSH PRN PRN PRN Reason: Heparin Heparin Sodium (Porcine) (Heparin -) 5,000 unit IVPUSH PRN PRN PRN Reason: Heparin CEFTRIAXONE 1 G/50 ML PREMIX (Ceftriaxone 1 Gm-D5w Bag) 50 mls @ 100 mls/hr IVPB DAILY [facility] Last Admin: 04/01/17 11:46 Dose: 100 mls/hr Heparin Sodium (Porcine) 25, (000 unit/ Sodium Chloride) 500 mls @ 23 mls/hr IV TITR [facility]; 1,150 UNIT/HR PRN Reason: Protocol Last Admin: 03/31/17 18:37 Dose: Not Given Metoprolol Succinate (Toprol Xl -) 25 mg PO DAILY [facility] Last Admin: 04/01/17 11:46 Dose: 25 mg Mupirocin (Bactroban Ointment (For Decolonization) -) 1 applic NS BID [facility] Stop: 04/01/17 21:59 Last Admin: 03/31/17 21:35 Dose: 1 applic Nystatin (Mycostatin Cream -) 1 applic TP BID [facility] Pantoprazole Sodium (Protonix -) 40 mg PO DAILY [facility] Last Admin: 04/01/17 11:43 Dose: 40 mg Polyethylene Glycol (Miralax (For Daily Use) -) 17 gm PO BID [facility] Warfarin Sodium (Coumadin -) 5 mg PO DAILY@1800 [facility] - Objective Vital Signs: Vital Signs - 24 hr 03/31/17 03/31/17 03/31/17 13:53 14:04 16:00 Temperature 98.6 F 98.5 F 98.6 F Pulse Rate 88 71 81 Respiratory 18 18 18 Rate Blood Pressure 135/76 132/68 135/77 O2 Sat by Pulse Oximetry (%) 03/31/17 03/31/17 03/31/17 18:00 18:30 20:00 Temperature 98.6 F 98.4 F Pulse Rate 81 75 70 Respiratory 21 25 H 22 Rate Blood Pressure 132/77 125/72 155/82 O2 Sat by Pulse Oximetry (%) 03/31/17 03/31/17 04/01/17 21:02 22:00 00:00 Temperature Pulse Rate 65 57 L Respiratory 22 20 20 Rate Blood Pressure 142/72 151/80 O2 Sat by Pulse 98 Oximetry (%) 04/01/17 04/01/17 04/01/17 02:00 04:00 06:00 Temperature 99 F Pulse Rate 57 L 73 61 Respiratory 20 20 20 Rate Blood Pressure 155/85 148/78 153/71 O2 Sat by Pulse Oximetry (%) Intake & Output 03/30/17 03/31/17 04/01/17 04/02/17 07:59 07:59 07:59 07:59 Intake Total 3747 2224 926 Output Total 1200 1420 Balance 2547 804 926 Weight 224 lb 227 lb 6 oz 230 lb 1.6 oz Constitutional: Yes: No Distress, Calm, Obese Cardiovascular: Yes: Regular Rate and Rhythm, S1, S2. No: Gallop, Murmur Respiratory: Yes: bibasilar rales. No: Accessory Muscle Use, Wheezes Extremities: No: Cold Edema: No Neurological: Yes: Alert, Oriented Psychiatric: No: Agitated no jaundice diaphoresis Labs: CBC, BMP 04/01/17 05:00 04/01/17 05:00 Laboratory Tests 03/31/17 04/01/17 04/01/17 05:00 05:00 05:00 PT with INR INR PTT (Actin FS) Magnesium 2.0 Total Bilirubin 0.5 D AST 37 D ALT 42 D Alkaline Phosphatase 56 Albumin 1.8 L TSH 0.07 L 0.22 L D Free T4 1.05 04/01/17 04/01/17 05:00 11:05 PT with INR 14.20 H INR 1.26 H PTT (Actin FS) 67.1 H Magnesium Total Bilirubin AST ALT Alkaline Phosphatase Albumin TSH Free T4 - ....Imaging EKG: Other (tele: SR) EKG x2: sinus tach. septal infarct. non-specific t wave ab echo: nl lv size/fn (hyperdynamic). mild-mod rve. RV fn moderately decreased with + escamilla's sign. flattened septum c/w rv volume overload. 1+ xavi. 1+ mr. mild-mod tr. mod phtn. very small pericardial effusion. chest cta: large bl pe's a/p: 57 year old with h/o HTN, HLD, and CAD (s/p stent placement 2 years prior) presents with syncope, persistent hypoxia, hypotension now with new dvt and PE. right heart strain with new dvt and b/l pe's. - large bl pe's on cta, s/p catheter thrombolysis by IR, and ivc filter for large dvt - on AC per pulm/critical care. hep bridge to coumadin. - Echo findings c/w for PE with right heart strain, no signs of right sided chf ; hemodynamically stable - duration of AC per pulm +/- heme (? unprovoked event) cad s/p remote pci, pos trops - troponin elevation here likely secondary to acute RV strain from PE. - nonspecific TWAs on ekg, similar on repeat (no old to compare) - trop peaked at 2.0, trending down now - no clinical sx's of acute myocardial ischemia process at present--observe - cont home ASA, atorva, bb as doing - not on YOUNG at home per pt - follows with dr golden for outpt cardio (and for YOUNG/BB dose reconcilitation/ titration) HTN - bb, ccb resumed, monitor pulm infiltrate: -suspected infarction > pna per pulm team--defer abx to them
[2017-04-01] MEDS: MUPIROCIN 2% TOPICAL OINTMENT FOR DECOLONIZATION NS SCH (12:37)
[2017-04-01] MEDS ORDERED: WARFARIN NA 2.5 MG TABLET (FP) PO ONE (12:48)
--- NOTE | 2017-04-01 13:34 | PN ---
Physical Exam: SUBJECTIVE: The patient is a 57F with a PMH of HTN, HLD, CAD s/p stent placement 2 years ago who presented with worsening SOB and syncopal episode. The patient was found to have multiple PE's and is s/p direct-catheter thrombectomy. Today the patient denies SOB, CP, nausea, vomiting but states that she continues to have a cough. The patient is hemodynamically stable. OBJECTIVE: Vital Signs Period Temp Pulse Resp BP Sys/Shields Pulse Ox Last 24 Hr 98.4 F-99 F 57-88 18-25 125-155/68-85 98 GENERAL: The patient is awake, alert, and fully oriented, in no acute distress. HEAD: Normal with no signs of trauma. EYES: PERRL, extraocular movements intact, sclera anicteric, conjunctiva clear. No ptosis. NECK: Trachea midline, full range of motion, supple. LUNGS: Breath sounds equal, clear to auscultation bilaterally, no wheezes, no crackles, no accessory muscle use. HEART: Regular rate and rhythm, S1, S2 without murmur, rub or gallop. Tenderness to palpation over L chest wall. ABDOMEN: Soft, nontender, nondistended, normoactive bowel sounds, no guarding, no rebound, no hepatosplenomegaly, no masses. EXTREMITIES: 2+ pulses, warm, well-perfused, no edema. NEUROLOGICAL: Cranial nerves II through XII grossly intact. Normal speech, gait not observed. PSYCH: Normal mood, normal affect. SKIN: Warm, dry, normal turgor, no rashes or lesions noted Laboratory Results - last 24 hr 04/01/17 04/01/17 04/01/17 05:00 05:00 05:00 WBC 14.2 H RBC 4.28 Hgb 11.2 Hct 34.4 MCV 80.3 MCH 26.2 MCHC 32.6 RDW 16.7 H Plt Count 255 MPV 8.1 Neutrophils % 84.0 H Lymphocytes % 10.7 D Monocytes % 4.9 Eosinophils % 0.1 Basophils % 0.3 PT with INR 14.40 H INR 1.27 H PTT (Actin FS) Sodium 148 H Potassium 3.5 Chloride 115 H Carbon Dioxide 28 Anion Gap 5 L BUN 11 D Creatinine 0.7 Creat Clearance w eGFR > 60 Random Glucose 105 Calcium 8.2 L Phosphorus 2.4 L Magnesium 2.0 Total Bilirubin 0.5 D AST 37 D ALT 42 D Alkaline Phosphatase 56 Total Protein 5.4 L Albumin 1.8 L TSH 0.22 L D Free T4 04/01/17 04/01/17 04/01/17 05:00 05:00 11:05 WBC RBC Hgb Hct MCV MCH MCHC RDW Plt Count MPV Neutrophils % Lymphocytes % Monocytes % Eosinophils % Basophils % PT with INR 14.20 H INR 1.26 H PTT (Actin FS) 67.1 H Sodium Potassium Chloride Carbon Dioxide Anion Gap BUN Creatinine Creat Clearance w eGFR Random Glucose Calcium Phosphorus Magnesium Total Bilirubin AST ALT Alkaline Phosphatase Total Protein Albumin TSH Free T4 1.05 Active Medications Generic Name Dose Route Start Last Admin Trade Name Freq PRN Reason Stop Dose Admin Amlodipine Besylate 5 mg 04/01/17 10:00 04/01/17 11:45 Norvasc - PO 5 mg DAILY [facility] Administration Aspirin 81 mg 04/01/17 10:00 04/01/17 11:44 Asa - PO 81 mg DAILY [facility] Administration Atorvastatin Calcium 80 mg 03/31/17 22:00 03/31/17 21:35 Lipitor - PO 80 mg HS [facility] Administration Chlorhexidine Gluconate 1 applic 03/31/17 22:00 03/31/17 21:35 Hibiclens For Decolonization - TP 1 applic HS [facility] Administration Docusate Sodium 100 mg 03/31/17 14:59 03/31/17 17:48 Colace - PO 100 mg Q12H PRN Administration CONSTIPATION Heparin Sodium (Porcine) 1,000 unit 03/31/17 18:37 Heparin - IVPUSH PRN PRN Heparin Heparin Sodium (Porcine) 5,000 unit 03/31/17 18:37 Heparin - IVPUSH PRN PRN Heparin CEFTRIAXONE 1 G/50 ML PREMIX 50 mls @ 100 mls/hr 04/01/17 10:00 04/01/17 11: 46 Ceftriaxone 1 Gm-D5w Bag IVPB 100 mls/hr DAILY [facility] Administration Heparin Sodium (Porcine) 25, 500 mls @ 23 mls/hr 03/31/17 18:37 03/31/17 18: 37 000 unit/ Sodium Chloride IV Not Given TITR [facility] Protocol 1,150 UNIT/HR Metoprolol Succinate 25 mg 04/01/17 10:00 04/01/17 11:46 Toprol Xl - PO 25 mg DAILY [facility] Administration Mupirocin 1 applic 03/31/17 22:00 04/01/17 12:37 Bactroban Ointment (For Decolonization) - NS 04/01/17 21:59 1 applic BID [facility] Administration Nystatin 1 applic 04/01/17 22:00 Mycostatin Cream - TP BID [facility] Pantoprazole Sodium 40 mg 04/01/17 10:00 04/01/17 11:43 Protonix - PO 40 mg DAILY [facility] Administration Polyethylene Glycol 17 gm 04/01/17 22:00 Miralax (For Daily Use) - PO BID [facility] Warfarin Sodium 5 mg 04/01/17 18:00 Coumadin - PO DAILY@1800 [facility] ASSESSMENT/PLAN: The patient is a 57F with a PMH of HTN, HLD, CAD s/p stents who presents with multiple PE's s/p catheter directed TPA, currently on TPA drip. Neuro: - A&Ox3 - At baseline CV: HTN - Continue home medications (HCTZ, toprol, lisinopril) - Echo shows RV volume overload and McConnel's sign - Carefully watch I/O's - Troponin decreased from 2.07, now 0.43 Pulm: Multiple PE's; massive - TPA drip d/c - Now on heparin - Also on coumadin - INR subtherapeutic, primary team added 2.5 coumadin Cough - Will give Robotussin DM for cough Renal: MARCO - Resolved; current BUN/Cr 11/0.7 : - None GI: - None ID: - None Hem/Onc: - None Endocrine: - None MSK: Multiple DVT's - Continue AC PPX: - As above FEN (Fluids, electrolytes, nutrition): - Chol/fat/sodium restricted diet Dispo: - Transfer to tele Visit type - Emergency Visit Emergency Visit: Yes ED Registration Date: 03/27/17 Care time: The patient presented to the Emergency Department on the above date and was hospitalized for further evaluation of their emergent condition. - New Patient This patient is new to me today: No - Critical Care Critical Care patient: Yes Total Critical Care Time (in minutes): 45 Critical Care Statement: The care of this patient involved high complexity decision making to prevent further life threatening deterioration of the patient 's condition and/or to evaluate & treat vital organ system(s) failure or risk of failure.
[2017-04-01] MEDS ORDERED: guaiFENesin/D-METHORPHAN HB 10 ML UNIT-DOSE CUPS PO ONE (14:02)
--- NOTE | 2017-04-01 14:47 | PN ---
Teaching Attending Note Name of Resident: Catrachtio Tolliver ATTENDING PHYSICIAN STATEMENT I saw and evaluated the patient. I reviewed the resident's note and discussed the case with the resident. I agree with the resident's findings and plan as documented. SUBJECTIVE: Patient seen and examined in the ICU. Awake and alert. No CP. SOB is slowly improving. Report left shoulder discomfort/pain. No hemoptysis. IV Heparin infusing. Intake & Output 03/29/17 03/30/17 03/31/17 04/01/17 23:59 23:59 23:59 23:59 Intake Total 4062 3024 911 376 Output Total 1400 1620 700 Balance 2662 1404 211 376 Weight 215 lb 224 lb 227 lb 6 oz 230 lb 1.6 oz Last Vital Signs Temp Pulse Resp BP Pulse Ox 99 F 61 20 153/71 98 04/01/17 06:00 04/01/17 06:00 04/01/17 06:00 04/01/17 06:00 03/31/17 21:02 Active Medications Amlodipine Besylate (Norvasc -) 5 mg PO DAILY [facility] Last Admin: 04/01/17 11:45 Dose: 5 mg Aspirin (Asa -) 81 mg PO DAILY [facility] Last Admin: 04/01/17 11:44 Dose: 81 mg Atorvastatin Calcium (Lipitor -) 80 mg PO HS [facility] Last Admin: 03/31/17 21:35 Dose: 80 mg Chlorhexidine Gluconate (Hibiclens For Decolonization -) 1 applic TP HS [facility] Last Admin: 03/31/17 21:35 Dose: 1 applic Docusate Sodium (Colace -) 100 mg PO Q12H PRN PRN Reason: CONSTIPATION Last Admin: 03/31/17 17:48 Dose: 100 mg Heparin Sodium (Porcine) (Heparin -) 1,000 unit IVPUSH PRN PRN PRN Reason: Heparin Heparin Sodium (Porcine) (Heparin -) 5,000 unit IVPUSH PRN PRN PRN Reason: Heparin CEFTRIAXONE 1 G/50 ML PREMIX (Ceftriaxone 1 Gm-D5w Bag) 50 mls @ 100 mls/hr IVPB DAILY [facility] Last Admin: 04/01/17 11:46 Dose: 100 mls/hr Heparin Sodium (Porcine) 25, (000 unit/ Sodium Chloride) 500 mls @ 23 mls/hr IV TITR [facility]; 1,150 UNIT/HR PRN Reason: Protocol Last Admin: 03/31/17 18:37 Dose: Not Given Metoprolol Succinate (Toprol Xl -) 25 mg PO DAILY [facility] Last Admin: 04/01/17 11:46 Dose: 25 mg Mupirocin (Bactroban Ointment (For Decolonization) -) 1 applic NS BID [facility] Stop: 04/01/17 21:59 Last Admin: 04/01/17 12:37 Dose: 1 applic Nystatin (Mycostatin Cream -) 1 applic TP BID [facility] Pantoprazole Sodium (Protonix -) 40 mg PO DAILY [facility] Last Admin: 04/01/17 11:43 Dose: 40 mg Polyethylene Glycol (Miralax (For Daily Use) -) 17 gm PO BID [facility] Warfarin Sodium (Coumadin -) 5 mg PO DAILY@1800 [facility] Gen: Awake and alert, NAD Heart: RRR Lung: decreased breath sounds at the bases Abd: soft, nontender Ext: no edema Laboratory Results - last 24 hr 04/01/17 04/01/17 04/01/17 05:00 05:00 05:00 WBC 14.2 H RBC 4.28 Hgb 11.2 Hct 34.4 MCV 80.3 MCH 26.2 MCHC 32.6 RDW 16.7 H Plt Count 255 MPV 8.1 Neutrophils % 84.0 H Lymphocytes % 10.7 D Monocytes % 4.9 Eosinophils % 0.1 Basophils % 0.3 PT with INR 14.40 H INR 1.27 H PTT (Actin FS) Sodium 148 H Potassium 3.5 Chloride 115 H Carbon Dioxide 28 Anion Gap 5 L BUN 11 D Creatinine 0.7 Creat Clearance w eGFR > 60 Random Glucose 105 Calcium 8.2 L Phosphorus 2.4 L Magnesium 2.0 Total Bilirubin 0.5 D AST 37 D ALT 42 D Alkaline Phosphatase 56 Total Protein 5.4 L Albumin 1.8 L TSH 0.22 L D Free T4 04/01/17 04/01/17 04/01/17 05:00 05:00 11:05 WBC RBC Hgb Hct MCV MCH MCHC RDW Plt Count MPV Neutrophils % Lymphocytes % Monocytes % Eosinophils % Basophils % PT with INR 14.20 H INR 1.26 H PTT (Actin FS) 67.1 H Sodium Potassium Chloride Carbon Dioxide Anion Gap BUN Creatinine Creat Clearance w eGFR Random Glucose Calcium Phosphorus Magnesium Total Bilirubin AST ALT Alkaline Phosphatase Total Protein Albumin TSH Free T4 1.05 ASSESSMENT AND PLAN: Massive Acute Pulmonary Emboli s/p catheter directed thrombolysis R DVT Lung infiltrate likely pulmonary infarct versus PNA +Troponins - IV Heparin with close monitoring of PTT - Coumadin with INR monitoring - O2 to keep SpO2 >90% - Rocephin for suspected PNA: if stable in the AM, will change to a short course of oral therapy to complete the course - Monitor off IVF - Titrate BP meds - Cardiac Telemetry monitoring Dr Braswell Critical care time spent in reviewing chart, evaluating patient and formulating plan 35 min
[2017-04-01] MEDS: WARFARIN NA 5 MG TABLET (UD) PO SCH (17:13)
[2017-04-01] MEDS: HEPARIN - 25,000 UNIT in SODIUM CHLORIDE 495 ML IV SCH ×2 (17:30→19:40)
--- NOTE | 2017-04-01 19:08 | PN ---
Teaching Attending Note Name of Resident: Chavo Will ATTENDING PHYSICIAN STATEMENT I saw and evaluated the patient. I reviewed the resident's note and discussed the case with the resident. I agree with the resident's findings and plan as documented. SUBJECTIVE: Patient is comfortable , denies any shortness of breath, but c/o having mild pleuretic chest pain. OBJECTIVE: Vital Signs Temperature 98.7 F 04/01/17 10:00 Pulse Rate 72 04/01/17 10:00 Respiratory Rate 18 04/01/17 10:00 Blood Pressure 134/80 04/01/17 10:00 O2 Sat by Pulse Oximetry (%) 96 04/01/17 09:00 CBCD WBC 14.2 K/mm3 (4.0-10.0) H 04/01/17 05:00 RBC 4.28 M/mm3 (3.60-5.2) 04/01/17 05:00 Hgb 11.2 GM/dL (10.7-15.3) 04/01/17 05:00 Hct 34.4 % (32.4-45.2) 04/01/17 05:00 MCV 80.3 fl (80-96) 04/01/17 05:00 MCHC 32.6 g/dl (32.0-36.0) 04/01/17 05:00 RDW 16.7 % (11.6-15.6) H 04/01/17 05:00 Plt Count 255 K/MM3 (134-434) 04/01/17 05:00 MPV 8.1 fl (7.5-11.1) 04/01/17 05:00 CMP Sodium 148 mmol/L (136-145) H 04/01/17 05:00 Potassium 3.5 mmol/L (3.5-5.1) 04/01/17 05:00 Chloride 115 mmol/L (98-107) H 04/01/17 05:00 Carbon Dioxide 28 mmol/L (21-32) 04/01/17 05:00 Anion Gap 5 (8-16) L 04/01/17 05:00 BUN 11 mg/dL (7-18) D 04/01/17 05:00 Creatinine 0.7 mg/dL (0.55-1.02) 04/01/17 05:00 Creat Clearance w eGFR > 60 (>60) 04/01/17 05:00 Random Glucose 105 mg/dL (74-106) 04/01/17 05:00 Calcium 8.2 mg/dL (8.5-10.1) L 04/01/17 05:00 Total Bilirubin 0.5 mg/dL (0.2-1.0) D 04/01/17 05:00 AST 37 U/L (15-37) D 04/01/17 05:00 ALT 42 U/L (12-78) D 04/01/17 05:00 Alkaline Phosphatase 56 U/L (45-117) 04/01/17 05:00 Total Protein 5.4 g/dl (6.4-8.2) L 04/01/17 05:00 Albumin 1.8 g/dl (3.4-5.0) L 04/01/17 05:00 CARDIAC ENZYMES Creatine Kinase 61 IU/L (26-192) 03/29/17 05:05 Troponin I 0.43 ng/ml (0.00-0.05) H 03/29/17 05:05 Current Medications Generic Name Dose Route Start Last Admin Trade Name Freq PRN Reason Stop Dose Admin Amlodipine Besylate 5 mg 04/01/17 10:00 04/01/17 11:45 Norvasc - PO 5 mg DAILY YESENIA Administration Aspirin 81 mg 04/01/17 10:00 04/01/17 11:44 Asa - PO 81 mg DAILY YESENIA Administration Atorvastatin Calcium 80 mg 03/31/17 22:00 03/31/17 21:35 Lipitor - PO 80 mg HS YESENIA Administration Chlorhexidine Gluconate 1 applic 03/31/17 22:00 03/31/17 21:35 Hibiclens For Decolonization - TP 1 applic HS YESENIA Administration Docusate Sodium 100 mg 03/31/17 14:59 03/31/17 17:48 Colace - PO 100 mg Q12H PRN Administration CONSTIPATION Heparin Sodium (Porcine) 1,000 unit 03/31/17 18:37 Heparin - IVPUSH PRN PRN Heparin Heparin Sodium (Porcine) 5,000 unit 03/31/17 18:37 Heparin - IVPUSH PRN PRN Heparin Heparin Sodium (Porcine) 25, 500 mls @ 23 mls/hr 03/31/17 18:37 04/01/17 17: 30 000 unit/ Sodium Chloride IV 23 unit/hr TITR YESENIA 0.46 mls/hr Protocol Administration 1,150 UNIT/HR Metoprolol Succinate 25 mg 04/01/17 10:00 04/01/17 11:46 Toprol Xl - PO 25 mg DAILY YESENIA Administration Mupirocin 1 applic 03/31/17 22:00 04/01/17 12:37 Bactroban Ointment (For Decolonization) - NS 04/01/17 21:59 1 applic BID YESENIA Administration Nystatin 1 applic 04/01/17 22:00 Mycostatin Cream - TP BID YESENIA Pantoprazole Sodium 40 mg 04/01/17 10:00 04/01/17 11:43 Protonix - PO 40 mg DAILY YESENIA Administration Polyethylene Glycol 17 gm 04/01/17 22:00 Miralax (For Daily Use) - PO BID YESENIA Warfarin Sodium 5 mg 04/01/17 18:00 04/01/17 17:13 Coumadin - PO 5 mg DAILY@1800 YESENIA Administration Home Medications Medication Instructions Recorded Aspirin [Neli Chewable] 81 mg PO DAILY 03/27/17 Atorvastatin Ca [Lipitor] 80 mg PO HS 03/27/17 Hydrochlorothiazide [Hctz -] 25 mg PO DAILY 03/27/17 Lisinopril [Prinivil] 20 mg PO DAILY 03/27/17 Metoprolol Tartrate 25 mg PO BID 03/27/17 Pantoprazole Sodium 40 mg PO DAILY 03/27/17 PE: per resident' note LUE: less tender, swelling better and is reduced ASSESSMENT AND PLAN: #Patient is a 57 y/o pleasant lady with h/o HTN, HLP, CAD s/p stents placed 2 yrs ago, and recent treatment for CAP ( , and 2 weeks) # Acute Massive BL PE Unprovoked with FHx of PE s/p catheter directed Alteplase thrombolysis, with RLE DVT. On heparin drip continue, started the patient on Coumadin 5mg , adjust the dose according PT/INR , pt/inr daily. Patient can be Txed out of the ICU. Patient needs further w/u upon discharge with transportation economics teacher. since the PE is unprovoked. # s/p hypoxic respiratory failure due to BL PE on Heparin drip and on Coumadin po. # Elevated Troponins most likely due to PE (heart strain on ECho). Doubt NSTEMI on alteplase thrombolysis, cardio on the case. On statins 80mg continue # Positive Infiltrate most likely due to pulmonary infarction on CT ;doubt Pneumonia , last dose today of IV antibiotic. Monitor the patient. # Syncope : due to BL PE # H/O HTN: will continue her Lopressor DVT Px; Heparin /coumdin
[2017-04-01] MEDS: ATORVASTATIN CA 80 MG TABLET (FP) PO SCH (21:03)
[2017-04-01] MEDS: CHLORHEXIDINE GLUCONATE 4% CLEANSER FOR DECOLONIZATION TP SCH (21:03)
[2017-04-01] MEDS: NYSTATIN 100,000 UNIT/GM TOPICAL CREAM 15 GM TUBE TP SCH (21:04)
[2017-04-01] MEDS: POLYETHYLENE GLYCOL 3350 119 GM BTL PO SCH (21:04)
[2017-04-02 06:22] LABS: MCH 26.9 pg (25.7-33.7); MEAN CELL VOLUME 81.4 fl (80-96); MEAN PLT VOLUME 8.9 fl (7.5-11.1); PLATELET COUNT 292 K/MM3 (134-434); WHITE BLOOD COUNT 14.7 K/mm3 (4.0-10.0)
--- NOTE | 2017-04-02 06:58 | PN ---
Physical Exam: SUBJECTIVE: Patient seen and examined by me this AM - No major overnight events. Pt continues to complain of L sided pleuritic CP and mild cough, itchy throat. Denies any SOB, palpitations, PALOMINO/dizziness, N/V, dysuria, diarrhea/constipation, rashes - Endorses some mild LE edema BL after sitting in her chair yesterday. Tolerated ambulation w/ walker with PT today with minimal PERDUE. Good appetite, energy, sleep. 1 BM yesterday. OBJECTIVE: Vital Signs Intake & Output 03/30/17 03/31/17 04/01/17 04/02/17 23:59 23:59 23:59 23:59 Intake Total 3024 911 1119 240 Output Total 1620 700 Balance 9317 701 6947 240 Weight 101.605 kg 103.136 kg 104.372 kg Period Temp Pulse Resp BP Sys/Shields Pulse Ox Last 24 Hr 98.2 F-98.7 F 52-87 18-26 119-155/31-80 96-98 GENERAL: Patient is A&Ox3. Lying in bed in no acute distress. HEAD: NCAT ENT: Ears normal, nares patent, oropharynx clear without exudates, moist mucous membranes. NECK: Trachea midline, supple. No JVD noted. R neck dressing removed and examined. No bleeding, oozing or erythema. LUNGS: CTABL. No accessory muscle use. HEART: Regular rate and rhythm, S1, S2. S3 noted. No other murmur, rub or gallop appreciated. ABDOMEN: Soft, globular, nontender, nondistended, normoactive bowel sounds, no guarding, no rebound. Upper EXTREMITIES: 1+ peripheral edema in upper extremities, more prominent distally. 2+ pulses, warm, well-perfused. L large ecchymosis on medial forearm w / resolving hematoma. Lower extremities: 1+ DP, PT pulses bilaterally. 2+ nonpitting edema BL. WWP. Still with no pain to palpation on anterior ankle. No bony deformities, swelling , erythema or lesions noted at this location again. NEUROLOGICAL: Cranial nerves II through XII grossly intact. Normal speech, gait not observed. PSYCH: Appropriate affect. Interactive, good mood. Laboratory Results - last 24 hr CBC, BMP CBC, BMP 04/02/17 06:00 04/01/17 05:00 Laboratory Results - last 24 hr 04/01/17 04/02/17 04/02/17 11:05 06:00 06:00 WBC 14.7 H RBC 4.14 Hgb 11.1 Hct 33.7 MCV 81.4 MCH 26.9 MCHC 33.0 RDW 17.0 H Plt Count 292 MPV 8.9 PT with INR 14.20 H INR 1.26 H PTT (Actin FS) 67.3 H Active Medications Generic Name Dose Route Start Last Admin Trade Name Freq PRN Reason Stop Dose Admin Amlodipine Besylate 5 mg 04/01/17 10:00 04/01/17 11:45 Norvasc - PO 5 mg DAILY YESENIA Administration Aspirin 81 mg 04/01/17 10:00 04/01/17 11:44 Asa - PO 81 mg DAILY YESENIA Administration Atorvastatin Calcium 80 mg 03/31/17 22:00 04/01/17 21:03 Lipitor - PO 80 mg HS YESENIA Administration Chlorhexidine Gluconate 1 applic 03/31/17 22:00 04/01/17 21:03 Hibiclens For Decolonization - TP 1 applic HS YESENIA Administration Docusate Sodium 100 mg 03/31/17 14:59 03/31/17 17:48 Colace - PO 100 mg Q12H PRN Administration CONSTIPATION Heparin Sodium (Porcine) 1,000 unit 03/31/17 18:37 Heparin - IVPUSH PRN PRN Heparin Heparin Sodium (Porcine) 5,000 unit 03/31/17 18:37 Heparin - IVPUSH PRN PRN Heparin Heparin Sodium (Porcine) 25, 500 mls @ 23 mls/hr 03/31/17 18:37 04/01/17 19: 40 000 unit/ Sodium Chloride IV Not Given T[facility]R [facility] Protocol 1,150 UNIT/HR Metoprolol Succinate 25 mg 04/01/17 10:00 04/01/17 11:46 Toprol Xl - PO 25 mg DAILY YESENIA Administration Nystatin 1 applic 04/01/17 22:00 04/01/17 21:04 Mycostatin Cream - TP 1 applic BID YESENIA Administration Pantoprazole Sodium 40 mg 04/01/17 10:00 04/01/17 11:43 Protonix - PO 40 mg DAILY YESENIA Administration Polyethylene Glycol 17 gm 04/01/17 22:00 04/01/17 21:04 Miralax (For Daily Use) - PO Not Given BID YESENIA Warfarin Sodium 5 mg 04/01/17 18:00 04/01/17 17:13 Coumadin - PO 5 mg DAILY@1800 YESENIA Administration No micro Relevent Imaging - 03/27 carotid doppler - No hemodynamically significant plaque or stenosis 03/27 PM CTA (repeat, due to technical limitations in AM CTA) - 1. Large, bilateral pulmonary emboli. 2. Consolidation/atelectasis at both lung bases, left greater than right. 3. Trace pericardial effusion. 4. Cholelithiasis. Please see above discussion. 03/27 AM CXR - Imaging reveals a weak inspiration with large heart, unfolded aorta, congestive changes and left base infiltrate. Follow-up recommended. 03/27 BL LE Duplex - 1. Occlusive deep vein thrombosis in the right popliteal vein as described above. 2. No evidence of left lower extremity deep vein thrombosis, as above. 03/28 angiogram - Improved blood flow to LLL. Residual clot noted. ECHO 03/28 - Moderate RV function. Moderate TR, Mild MR. Moderate pulm htn. EF 67% CXR: 03/29 - Assessment and plan 57 yo woman w/ pmh of HTN, HLD and CAD who presented with a syncopal episode, SOB, N/V, found to be persistently hypoxic/hypotensive in ED, now with CTA confirmed BL PEs s/p IR-guided thrombectomy and tPA-infusion. Pt remains stable with no further SOB, complaining of mild pleuritic CP. Tolerating ambulation with improving PERDUE. Currently on heparin to coumadin bridge. Can likely go home tomorrow. 1. Bilateral pulmonary embolism - Pt completed tPA infusion last week. Angiogram on 03/28 with improved blood flow to left lower lobe still with residual clot. Refused IVC filter after being advised of indication, risks and benefits; discussed with sonny who is an MD; elected for buttermaker AC. - Coumadin 5mg daily. AM INR 1.35, still subtherapeutic. Given another 2.5 mg this PM. - Continue heparin gtt for bridge - Will likely require lifelong AC. - Heme/onc consulted due to family hx of thrombophilia (two nieces with blood clots). Will require outpt f/u 2. Acute hypoxic respiratory failure - Pt satting in 95-98% on RA. Plan for ambulation as tolerated. Mild PERDUE. - O2 therapy via NC if needed. Maintain sat >90% - SOB, hypoxia resolved - PT/RT 3. Possible PNA/leukocystosis - Possible infiltrate/PNA on imaging at left lung base. - Rocephin d/c'ed yesterday - WBC stable, remains elevated 14.7 today. Continue to trend - Afebrile overnight - Trend fever, wbc 4. Syncopal episode - No longer requires cardiac monitoring - fall risk precautions - Carotid u/s neg for stenosis/plaque - Echo notable for moderately decreased RV function, pulm htn. Mild MR, TR. 5. CAD - coronary stents in 2015 - ASA 81mg PO daily - lipitor 80 mg po daily - f/u lipid profile - Toprol xl 25 PO 6. HTN - Intermittently hypertensive to 150s systolic - Norvasc 5mg - On Toprol XL 25 PO 8. HLD - lipitor 80mg PO hS 9. MARCO - Trend BUN/Cr - Avoid nephrotoxic agents. Limit contrast exposure. - off IVFs 10. Hypernatremia - Still with mild hyperna, 148 this AM - Trend Na - Repeat BMP tomorrow 11. Constipation - 1 bm today - senna, prune juice - Continue miralax BID 12. L arm hematoma - improving - Instructed to elevated arm at rest - warm compresses 13. Persistent cough - Robitussin PPX: - Heparin gtt, coumadin - Protonix 40 mg PO FEN Fluids: PO hydration Electrolytes: Daily BMP. Trend BUN/Cr Nutrition: Cardiac diet Dispo - Dispo to floors for further management given clinical improvement. Likely d/c tomorrow Plan discussed with attending, Dr. Richard Will, PGY1 Visit type - Emergency Visit Emergency Visit: No - New Patient This patient is new to me today: No - Critical Care Critical Care patient: Yes Total Critical Care Time (in minutes): 25
[2017-04-02] MEDS: ASPIRIN 81 MG CHEWABLE TABLETS PO SCH (09:27)
[2017-04-02] MEDS: amLODIPine BESYLATE 5 MG TABLET (FP) PO SCH (09:27)
[2017-04-02] MEDS: PANTOPRAZOLE 40 MG TABLET (FP) PO SCH (09:27)
[2017-04-02] MEDS: METOPROLOL SUCCINATE 25 MG TAB.SR.24H (FP) PO SCH (09:27)
[2017-04-02] MEDS: POLYETHYLENE GLYCOL 3350 119 GM BTL PO SCH ×2 (09:28→22:33)
[2017-04-02 09:38] LABS: INR 1.35 (0.82-1.09); PROTHROMBIN TIME (PATIENT) 15.2 SEC (9.98-11.88)
[2017-04-02 09:38] LABS: ALBUMIN 1.9 g/dl (3.4-5.0); ANION GAP 6 (8-16); CALCIUM 8.4 mg/dL (8.5-10.1); CO2 27 mmol/L (21-32); CREATININE 0.8 mg/dL (0.55-1.02); GLUCOSE,RANDOM 99 mg/dL (74-106); MAGNESIUM 2.1 mg/dL (1.8-2.4); PHOSPHOROUS 2.2 mg/dL (2.5-4.9); SGOT/AST 33 U/L (15-37); SGPT/ALT 46 U/L (12-78)
[2017-04-02 09:39] LABS: ALK PHOS 58 U/L (45-117); BILIRUBIN,TOTAL 0.5 mg/dL (0.2-1.0); TOT PROT 5.4 g/dl (6.4-8.2)
[2017-04-02] MEDS ORDERED: MAG HYDROX/AL HYDROX/SIMETH 30 ML UNIT-DOSE CUP PO PRN (11:52)
--- NOTE | 2017-04-02 11:55 | PN ---
Progress Note (short form) - Note Progress Note: Chief Complaint: PE History of Present Illness: no sob no palpit, syncope brief right side pleuritic cp this am Current Medications Generic Name Dose Route Start Last Admin Trade Name Kelvin PRN Reason Stop Dose Admin Al Hydroxide/Mg Hydroxide 30 ml 04/02/17 11:52 Mylanta Oral Suspension - PO Q6H PRN DYSPEPSIA Amlodipine Besylate 5 mg 04/01/17 10:00 04/02/17 09:27 Norvasc - PO 5 mg DAILY YESENIA Administration Aspirin 81 mg 04/01/17 10:00 04/02/17 09:27 Asa - PO 81 mg DAILY YESENIA Administration Atorvastatin Calcium 80 mg 03/31/17 22:00 04/01/17 21:03 Lipitor - PO 80 mg HS YESENIA Administration Chlorhexidine Gluconate 1 applic 03/31/17 22:00 04/01/17 21:03 Hibiclens For Decolonization - TP 1 applic HS YESENIA Administration Docusate Sodium 100 mg 03/31/17 14:59 03/31/17 17:48 Colace - PO 100 mg Q12H PRN Administration CONSTIPATION Heparin Sodium (Porcine) 1,000 unit 03/31/17 18:37 Heparin - IVPUSH PRN PRN Heparin Heparin Sodium (Porcine) 5,000 unit 03/31/17 18:37 Heparin - IVPUSH PRN PRN Heparin Heparin Sodium (Porcine) 25, 500 mls @ 23 mls/hr 03/31/17 18:37 04/01/17 19: 40 000 unit/ Sodium Chloride IV Not Given TITR [facility] Protocol 1,150 UNIT/HR Metoprolol Succinate 25 mg 04/01/17 10:00 04/02/17 09:27 Toprol Xl - PO 25 mg DAILY YESENIA Administration Nystatin 1 applic 04/01/17 22:00 04/01/17 21:04 Mycostatin Cream - TP 1 applic BID YESENIA Administration Pantoprazole Sodium 40 mg 04/01/17 10:00 04/02/17 09:27 Protonix - PO 40 mg DAILY YESENIA Administration Polyethylene Glycol 17 gm 04/01/17 22:00 04/02/17 09:28 Miralax (For Daily Use) - PO 17 gm BID YESENIA Administration Warfarin Sodium 5 mg 04/01/17 18:00 04/01/17 17:13 Coumadin - PO 5 mg DAILY@1800 YESENIA Administration - Objective Vital Signs: Vital Signs Period Temp Pulse Resp BP Sys/Shields Pulse Ox Last 24 Hr 98.2 F-98.6 F 52-87 18-26 119-155/31-73 98 Constitutional: Yes: No Distress, Calm, Obese Cardiovascular: Yes: Regular Rate and Rhythm, S1, S2. No: Gallop, Murmur Respiratory: Yes: Regular, CTA Bilaterally. No: Accessory Muscle Use, Wheezes Extremities: No: Cold Edema: No Neurological: Yes: Alert, Oriented Psychiatric: No: Agitated no jaundice diaphoresis Labs: CBC, BMP 04/02/17 06:00 04/02/17 08:20 - ....Imaging EKG: Other (tele: SR) EKG x2: sinus tach. septal infarct. non-specific t wave ab echo 03/2017: nl lv size/fn. RV dilation and decreased function with concern for right heart strain. see emr for full report repeat echo 03/2017: tds, nl lv, rv not seen, mod xvai, mild mr, mild-mod tr, rvsp 30-40 chest cta: large bl pe's a/p: 57 year old with h/o HTN, HLD, and CAD (s/p stent placement 2 years prior) presents with syncope, persistent hypoxia, hypotension now with new dvt and PE. right heart strain with new dvt and b/l pe's. - large bl pe's on cta, s/p catheter thrombolysis by IR, and ivc filter for large dvt - on AC per pulm/critical care. hep bridge to coumadin. - Echo findings c/w for PE with right heart strain, no signs of right sided chf ; hemodynamically stable - duration of AC per pulm +/- heme (? unprovoked event) cad s/p remote pci, pos trops - troponin elevation here likely secondary to acute RV strain from PE. - nonspecific TWAs on ekg, similar on repeat (no old to compare) - trop peaked at 2.0, trending down now - no clinical sx's of acute myocardial ischemia process at present--observe - cont home ASA, atorva, bb as doing - not on YOUNG at home per pt - follows with dr golden for outpt cardio (and for YOUNG/BB dose reconcilitation/ titration) HTN -bb, ccb resumed, monitor pulm infiltrate: -suspected infarction > pna per pulm team--defer abx to them
[2017-04-02] MEDS: NYSTATIN 100,000 UNIT/GM TOPICAL CREAM 15 GM TUBE TP SCH ×2 (12:46→22:40)
--- NOTE | 2017-04-02 12:59 | PN ---
Teaching Attending Note Name of Resident: Galina Wilson ATTENDING PHYSICIAN STATEMENT I saw and evaluated the patient. I reviewed the resident's note and discussed the case with the resident. I agree with the resident's findings and plan as documented. SUBJECTIVE: Pt seen and examined in the ICU. Still some dyspnea with exertion. Occasional right sided chest pain. Ambulating with PT. OBJECTIVE: Last Vital Signs Temp Pulse Resp BP Pulse Ox 98.1 F 69 20 153/91 97 04/02/17 10:00 04/02/17 10:00 04/02/17 10:00 04/02/17 10:00 04/02/17 10:00 Intake & Output 03/30/17 03/31/17 04/01/17 04/02/17 23:59 23:59 23:59 23:59 Intake Total 3024 911 1119 540 Output Total 1620 700 Balance 8878 952 8777 540 Weight 224 lb 227 lb 6 oz 230 lb 1.6 oz 233 lb 1 oz Gen: NAD at rest Heart: RRR Lung: decreased breath sounds at the bases Abd: soft, nontender Ext: no edema CBC, BMP 04/02/17 06:00 04/02/17 08:20 INR, PTT INR 1.35 (0.82-1.09) H 04/02/17 06:00 Active Medications Al Hydroxide/Mg Hydroxide (Mylanta Oral Suspension -) 30 ml PO Q6H PRN PRN Reason: DYSPEPSIA Amlodipine Besylate (Norvasc -) 5 mg PO DAILY [facility] Last Admin: 04/02/17 09:27 Dose: 5 mg Aspirin (Asa -) 81 mg PO DAILY [facility] Last Admin: 04/02/17 09:27 Dose: 81 mg Atorvastatin Calcium (Lipitor -) 80 mg PO HS [facility] Last Admin: 04/01/17 21:03 Dose: 80 mg Chlorhexidine Gluconate (Hibiclens For Decolonization -) 1 applic TP HS [facility] Last Admin: 04/01/17 21:03 Dose: 1 applic Docusate Sodium (Colace -) 100 mg PO Q12H PRN PRN Reason: CONSTIPATION Last Admin: 03/31/17 17:48 Dose: 100 mg Heparin Sodium (Porcine) (Heparin -) 1,000 unit IVPUSH PRN PRN PRN Reason: Heparin Heparin Sodium (Porcine) (Heparin -) 5,000 unit IVPUSH PRN PRN PRN Reason: Heparin Heparin Sodium (Porcine) 25, (000 unit/ Sodium Chloride) 500 mls @ 23 mls/hr IV TITR YESENIA; 1,150 UNIT/HR PRN Reason: Protocol Last Admin: 04/01/17 19:40 Dose: Not Given Metoprolol Succinate (Toprol Xl -) 25 mg PO DAILY [facility] Last Admin: 04/02/17 09:27 Dose: 25 mg Nystatin (Mycostatin Cream -) 1 applic TP BID [facility] Last Admin: 04/02/17 12:46 Dose: Not Given Pantoprazole Sodium (Protonix -) 40 mg PO DAILY [facility] Last Admin: 04/02/17 09:27 Dose: 40 mg Polyethylene Glycol (Miralax (For Daily Use) -) 17 gm PO BID [facility] Last Admin: 04/02/17 09:28 Dose: 17 gm Warfarin Sodium (Coumadin -) 5 mg PO DAILY@1800 [facility] Last Admin: 04/01/17 17:13 Dose: 5 mg ASSESSMENT AND PLAN: Massive Acute Pulmonary Emboli s/p catheter directed thrombolysis R DVT Lung infiltrate likely pulmonary infarct +Troponins HTN Hypercholesterolemia - continue transition to oral anticoagulation - O2 to keep SpO2 >90% - rehab/PT - can monitor on floor
--- NOTE | 2017-04-02 13:12 | PN ---
Physical Exam: SUBJECTIVE: Patient seen and examined patient resting comfortably in bed NAD. afebrile and hemodynamicallys table, no acute events. COmplains of pleuritic cp and dry cough. reports gassy abd pain, which shes had before. denies sob, h/a, dizziness, n/v/d, abd pain. OBJECTIVE: Vital Signs Period Temp Pulse Resp BP Sys/Shields Pulse Ox Last 24 Hr 98.1 F-98.6 F 52-87 18-26 119-155/31- 97-98 GENERAL: The patient is awake, alert, and fully oriented, in no acute distress. HEAD: Normal with no signs of trauma. EYES: PERRL, extraocular movements intact, sclera anicteric, conjunctiva clear. No ptosis. ENT: moist mucous membranes. NECK: supple. LUNGS: Breath sounds equal, clear to auscultation bilaterally HEART: Regular rate and rhythm, S1, S2 ABDOMEN: Soft, nontender, nondistended, normoactive bowel sounds EXTREMITIES: LE edema 1+, b/l tenderness NEUROLOGICAL: Cranial nerves II through XII grossly intact. Normal speech, gait not observed. PSYCH: Normal mood, normal affect. SKIN: Warm, dry Laboratory Results - last 24 hr 04/02/17 04/02/17 04/02/17 06:00 06:00 06:00 WBC 14.7 H RBC 4.14 Hgb 11.1 Hct 33.7 MCV 81.4 MCH 26.9 MCHC 33.0 RDW 17.0 H Plt Count 292 MPV 8.9 PT with INR 15.20 H INR 1.35 H PTT (Actin FS) 67.3 H Sodium Potassium Chloride Carbon Dioxide Anion Gap BUN Creatinine Creat Clearance w eGFR Random Glucose Calcium Phosphorus Magnesium Total Bilirubin AST ALT Alkaline Phosphatase Total Protein Albumin 04/02/17 08:20 WBC RBC Hgb Hct MCV MCH MCHC RDW Plt Count MPV PT with INR INR PTT (Actin FS) Sodium 148 H Potassium 4.0 Chloride 115 H Carbon Dioxide 27 Anion Gap 6 L BUN 14 D Creatinine 0.8 Creat Clearance w eGFR > 60 Random Glucose 99 Calcium 8.4 L Phosphorus 2.2 L Magnesium 2.1 Total Bilirubin 0.5 AST 33 ALT 46 Alkaline Phosphatase 58 Total Protein 5.4 L Albumin 1.9 L Active Medications Generic Name Dose Route Start Last Admin Trade Name Freq PRN Reason Stop Dose Admin Al Hydroxide/Mg Hydroxide 30 ml 04/02/17 11:52 Mylanta Oral Suspension - PO Q6H PRN DYSPEPSIA Amlodipine Besylate 5 mg 04/01/17 10:00 04/02/17 09:27 Norvasc - PO 5 mg DAILY YESENIA Administration Aspirin 81 mg 04/01/17 10:00 04/02/17 09:27 Asa - PO 81 mg DAILY YESENIA Administration Atorvastatin Calcium 80 mg 03/31/17 22:00 04/01/17 21:03 Lipitor - PO 80 mg HS YESENIA Administration Chlorhexidine Gluconate 1 applic 03/31/17 22:00 04/01/17 21:03 Hibiclens For Decolonization - TP 1 applic HS [facility] Administration Docusate Sodium 100 mg 03/31/17 14:59 03/31/17 17:48 Colace - PO 100 mg Q12H PRN Administration CONSTIPATION Heparin Sodium (Porcine) 1,000 unit 03/31/17 18:37 Heparin - IVPUSH PRN PRN Heparin Heparin Sodium (Porcine) 5,000 unit 03/31/17 18:37 Heparin - IVPUSH PRN PRN Heparin Heparin Sodium (Porcine) 25, 500 mls @ 23 mls/hr 03/31/17 18:37 04/01/17 19: 40 000 unit/ Sodium Chloride IV Not Given TITR [facility] Protocol 1,150 UNIT/HR Metoprolol Succinate 25 mg 04/01/17 10:00 04/02/17 09:27 Toprol Xl - PO 25 mg DAILY YESENIA Administration Nystatin 1 applic 04/01/17 22:00 04/02/17 12:46 Mycostatin Cream - TP Not Given BID YESENIA Pantoprazole Sodium 40 mg 04/01/17 10:00 04/02/17 09:27 Protonix - PO 40 mg DAILY YESENIA Administration Polyethylene Glycol 17 gm 04/01/17 22:00 04/02/17 09:28 Miralax (For Daily Use) - PO 17 gm BID [facility] Administration Warfarin Sodium 5 mg 04/01/17 18:00 04/01/17 17:13 Coumadin - PO 5 mg DAILY@1800 YESENIA Administration ASSESSMENT/PLAN: This is a 57 yo F with pmh of HTN, HLD and CAD, who presented with a syncopal episode, found to have massice PE; s/p IR-guided thrombectomy and tPA-infusion. Neuro -aaox3 Pulm *massive PE s/p IR-guided thrombectomy and tPA-infusion -heavy b/l clot burden -remains symptomatic (cough, pain) -on hep gtt bridging to coum -supplemental O2 -has family history of thrombophelia; Heme consult -likley requires life long ac -Residual DVT in R popliteal vein; IVC filter refused. *possible CAP vs pulm infarct -rocephin d 09/08 -leukocytosis trending down 14.2 CV -RV strain on initial TTE -Repeat TTE resovled strain pattern, increased RV pressure due to pulm HTN -continue beta ghazala -hemodynamically stable *CAD s/p coronary stents 2014 *HTN -ASA 81 daily -Norvasc 5mg *HLD - lipitor 80mg PO hS FEN no ivf lytes stable Heparin gtt, coumadin ppi Dispo: tele Problem List - Problems (1) Acute massive pulmonary embolism Code(s): I26.99 - OTHER PULMONARY EMBOLISM WITHOUT ACUTE COR PULMONALE (2) Cor pulmonale Code(s): I27.81 - COR PULMONALE (CHRONIC) (3) Acute respiratory failure with hypoxia Code(s): J96.01 - ACUTE RESPIRATORY FAILURE WITH HYPOXIA (4) HTN (hypertension) Code(s): I10 - ESSENTIAL (PRIMARY) HYPERTENSION (5) HLD (hyperlipidemia) Code(s): E78.5 - HYPERLIPIDEMIA, UNSPECIFIED (6) DVT (deep venous thrombosis) Code(s): I82.409 - ACUTE EMBOLISM AND THOMBOS UNSP DEEP VN UNSP LOWER EXTREMITY (7) Thrombophilia Code(s): D68.59 - OTHER PRIMARY THROMBOPHILIA (8) Syncope and collapse Code(s): R55 - SYNCOPE AND COLLAPSE Visit type - Emergency Visit Emergency Visit: Yes ED Registration Date: 03/27/17 Care time: The patient presented to the Emergency Department on the above date and was hospitalized for further evaluation of their emergent condition. - New Patient This patient is new to me today: Yes Date on this admission: 04/02/17 - Critical Care Critical Care patient: Yes Total Critical Care Time (in minutes): 35 Critical Care Statement: The care of this patient involved high complexity decision making to prevent further life threatening deterioration of the patient 's condition and/or to evaluate & treat vital organ system(s) failure or risk of failure.
[2017-04-02] MEDS: WARFARIN NA 5 MG TABLET (UD) PO SCH (17:13)
[2017-04-02] MEDS: guaiFENesin 200 MG/10 ML 10 ML UNIT-DOSE CUPS PO PRN (17:51)
[2017-04-02] MEDS ORDERED: WARFARIN NA 2.5 MG TABLET (FP) PO ONE (18:00)
--- NOTE | 2017-04-02 18:48 | PN ---
Teaching Attending Note Name of Resident: Chavo Will ATTENDING PHYSICIAN STATEMENT I saw and evaluated the patient. I reviewed the resident's note and discussed the case with the resident. I agree with the resident's findings and plan as documented. SUBJECTIVE: no fever or chills. intermittent SOB , has improved . Intermittent CP resolved . walked with PT OBJECTIVE: NAD, AAOx3 . comfortable HEENT: Moist MM. CV: RRR. no MRG Lungs: bibasilar crackles Ext: no edema , tenderness to palpation on both legs Assessment/Plan: 57 y/o pleasant lady with h/o HTN, HLP, CAD s/p stents placed 2 yrs ago, and recent treatment for CAP ( , and 2 weeks prior) who presented with a syncopal episode and SOB , was found to have acute massive PEs 1-Acute hypoxic resp failure: 2/2 Acute massive PEs s/p catheter directed thrombolysis . improved . sat O2 100 % on RA - cont heparin , bridging to coumadin - give 7.5 of coumadin to night - follow INR. 2-Unprovoked DVT in RLE: with family h/o DVTS in nieces ( in their 30s) - cont bridging to coumadin - will need hypercoagulable w/u as outpt as on AC already 3- Demand ischemia : stable . -cont ASA until f/u with relief map modeler as out pt ( had stents in 2014) - cont BB 4- h/o HTN: - cont BB - resume lisinopril ( was switched to norvasc due to MARCO ) - dc norvasc - cont to hold HCTZ due to dehydration 5- MARCO : resolved encourage oral hydration 6- Dispo : pending tx to med surg
--- NOTE | 2017-04-02 19:14 | CONSULT ---
Consult Consult Specialty:: Hematology - History of Present Illness History of Present Illness: 57 y/o pleasant lady with h/o HTN, HLP, CAD s/p stents placed 2 yrs ago, and recent treatment for CAP ( , and 2 weeks prior) who presented with a syncopal episode and SOB , was found to have acute massive PEs Hematology consulted for the above. Patient seen and examined. - Alcohol/Substance Use Hx Alcohol Use: No - Smoking History Smoking history: Never smoked Have you smoked in the past 12 months: No Home Medications - Allergies Allergies/Adverse Reactions: Allergies Allergy/AdvReac Type Severity Reaction Status Date / Time No Known Allergies Allergy Verified 03/26/17 23:54 - Home Medications Home Medications: Ambulatory Orders Aspirin [Neli Chewable] 81 mg PO DAILY 03/27/17 Atorvastatin Ca [Lipitor] 80 mg PO HS 03/27/17 Hydrochlorothiazide [Hctz -] 25 mg PO DAILY 03/27/17 Lisinopril [Prinivil] 20 mg PO DAILY 03/27/17 Metoprolol Tartrate 25 mg PO BID 03/27/17 Pantoprazole Sodium 40 mg PO DAILY 03/27/17 Physical Exam Vital Signs: Vital Signs Temperature 98.1 F 04/02/17 10:00 Pulse Rate 69 04/02/17 10:00 Respiratory Rate 20 04/02/17 10:00 Blood Pressure 153/91 04/02/17 10:00 O2 Sat by Pulse Oximetry (%) 97 04/02/17 10:00 Constitutional: Yes: Well Nourished, No Distress, Calm Eyes: Yes: Conjunctiva Clear HENT: Yes: Atraumatic, Normocephalic Neck: Yes: Supple Cardiovascular: Yes: Regular Rate and Rhythm Respiratory: Yes: Regular, CTA Bilaterally Gastrointestinal: Yes: Normal Bowel Sounds, Soft Extremities: Yes: WNL Edema: No Labs: CBC, BMP 04/02/17 06:00 04/02/17 08:20 Imaging - Results Cat Scan: Report Reviewed, Image Reviewed Ultrasound: Report Reviewed Problem List - Problems (1) Acute massive pulmonary embolism Code(s): I26.99 - OTHER PULMONARY EMBOLISM WITHOUT ACUTE COR PULMONALE (2) DVT (deep venous thrombosis) Code(s): I82.409 - ACUTE EMBOLISM AND THOMBOS UNSP DEEP VN UNSP LOWER EXTREMITY (3) Thrombophilia Code(s): D68.59 - OTHER PRIMARY THROMBOPHILIA (4) Troponin level elevated Code(s): R74.8 - ABNORMAL LEVELS OF OTHER SERUM ENZYMES (5) Syncope and collapse Code(s): R55 - SYNCOPE AND COLLAPSE Assessment/Plan Most likely an unprovoked DVT/PE Strong family hx ( including her mom who unfortunately from "clot") , nieces with DVT , but one of them has lupus. Agree with hep to coumadin LA testing thrombophilia w/u as an OP including r/o MPN. She says she is uptodate with colonoscopy and mammogram and pap smear. I would consider/recommend a CT a/p with contrast to r/o any evidence malignancy (eg: Pancreas/Renal). ?leucocytosis, could be reactive. hyperNa; per primary office info given to the patient. d/w pt in detail will d/w primary team
[2017-04-02] MEDS: ATORVASTATIN CA 80 MG TABLET (FP) PO SCH (22:32)
[2017-04-02] MEDS: CHLORHEXIDINE GLUCONATE 4% CLEANSER FOR DECOLONIZATION TP SCH (22:33)
[2017-04-02] MEDS: HEPARIN - 25,000 UNIT in SODIUM CHLORIDE 495 ML IV SCH (22:40)
[2017-04-03] MEDS ORDERED: HEPARIN NA (PORCINE) 5,000 UNITS/ML 1ML VIAL IVPUSH PRN ×2 (00:26)
[2017-04-03] MEDS: HEPARIN - 25,000 UNIT in SODIUM CHLORIDE 495 ML IV SCH (00:30)
[2017-04-03 06:34] LABS: MCH 26.9 pg (25.7-33.7); MCHC 33.5 g/dl (32.0-36.0); MEAN CELL VOLUME 80.3 fl (80-96); MEAN PLT VOLUME 8.9 fl (7.5-11.1); PLATELET COUNT 283 K/MM3 (134-434); RDW 16.4 % (11.6-15.6); WHITE BLOOD COUNT 17.6 K/mm3 (4.0-10.0)
[2017-04-03 06:49] LABS: INR 1.81 (0.82-1.09); PROTHROMBIN TIME (PATIENT) 20.5 SEC (9.98-11.88)
[2017-04-03 07:11] LABS: ANION GAP 7 (8-16); CO2 30 mmol/L (21-32); CREATININE 0.7 mg/dL (0.55-1.02); GLUCOSE,RANDOM 111 mg/dL (74-106); MAGNESIUM 1.8 mg/dL (1.8-2.4); PHOSPHOROUS 2.7 mg/dL (2.5-4.9)
[2017-04-03] MEDS ORDERED: POTASSIUM CHLORIDE TABS 20 MEQ TABLET.ER (FP) PO ONE ×2 (08:02→11:45)
--- NOTE | 2017-04-03 08:06 | PN ---
Physical Exam: SUBJECTIVE: Patient seen and examined by me this AM - Still with non-productive cough, no BM overnight. Able to ambulate down blake and back, felt that this went well with minimal PERDUE. Good sleep appetite. Urinated on self overnight. - Denies any fevers/chills, SOB, PALOMINO/dizziness, N/V, abdominal pain, peripheral weakness/numbness. L-sided CP has improved. - Counseled about plan for AC long-term. PM: - Met with pt in PM. Discussed wishes for Abdominal/Pelvis CT scan for further work-up of liver mass OBJECTIVE: Vital Signs Intake & Output 03/31/17 04/01/17 04/02/17 04/03/17 23:59 23:59 23:59 23:59 Intake Total 911 1119 590 326 Output Total 700 600 Balance 211 1119 -10 326 Weight 103.136 kg 104.372 kg 105.715 kg 106.186 kg Period Temp Pulse Resp BP Sys/Shields Pulse Ox Last 24 Hr 98.1 F-99.1 F 56-74 18-20 129-159/70-91 97-98 GENERAL: Patient is A&Ox3. Lying in bed in no acute distress. HEAD: NCAT ENT: Ears normal, nares patent, oropharynx clear without exudates, moist mucous membranes. NECK: Trachea midline, supple. No JVD noted. R neck dressing removed and examined. No bleeding, oozing or erythema. LUNGS: Decreased breath sounds at bases. No wheezes or crackles. No accessory muscle use. HEART: Regular rate and rhythm, S1, S2. S3 noted. No other murmur, rub or gallop appreciated. ABDOMEN: Soft, globular, nondistended, normoactive bowel sounds. Mild suprapubic pain to palpation no guarding, no rebound. Upper EXTREMITIES: 1+ peripheral edema in upper extremities, more prominent distally. 2+ pulses, warm, well-perfused. L large ecchymosis on medial forearm w / resolving hematoma. Lower extremities: 1+ DP, PT pulses bilaterally. 1+ nonpitting edema BL. WWP. Worsening pain to palpation on anterior ankle and now with pain on calf palpation on L side. No bony deformities, swelling, erythema or lesions noted at this location again. NEUROLOGICAL: Cranial nerves II through XII grossly intact. Normal speech, gait not observed. PSYCH: Appropriate affect. Interactive, good mood. Laboratory Results - last 24 hr CBC, BMP 04/03/17 05:00 04/03/17 05:00 04/02/17 04/02/17 04/03/17 06:00 08:20 05:00 WBC 17.6 H RBC 4.19 Hgb 11.3 Hct 33.7 MCV 80.3 MCH 26.9 MCHC 33.5 RDW 16.4 H Plt Count 283 MPV 8.9 PT with INR 15.20 H INR 1.35 H PTT (Actin FS) Sodium 148 H Potassium 4.0 Chloride 115 H Carbon Dioxide 27 Anion Gap 6 L BUN 14 D Creatinine 0.8 Creat Clearance w eGFR > 60 Random Glucose 99 Calcium 8.4 L Phosphorus 2.2 L Magnesium 2.1 Total Bilirubin 0.5 AST 33 ALT 46 Alkaline Phosphatase 58 Total Protein 5.4 L Albumin 1.9 L 04/03/17 04/03/17 05:00 05:00 WBC RBC Hgb Hct MCV MCH MCHC RDW Plt Count MPV PT with INR 20.50 H INR 1.81 H D PTT (Actin FS) 79.0 H Sodium 147 H Potassium 3.6 Chloride 110 H Carbon Dioxide 30 Anion Gap 7 L BUN 12 Creatinine 0.7 Creat Clearance w eGFR Random Glucose 111 H Calcium 9.0 Phosphorus 2.7 D Magnesium 1.8 Total Bilirubin AST ALT Alkaline Phosphatase Total Protein Albumin Active Medications Generic Name Dose Route Start Last Admin Trade Name Freq PRN Reason Stop Dose Admin Al Hydroxide/Mg Hydroxide 30 ml 04/02/17 11:52 Mylanta Oral Suspension - PO Q6H PRN DYSPEPSIA Aspirin 81 mg 04/03/17 10:00 Asa - PO DAILY YESENIA Atorvastatin Calcium 80 mg 04/03/17 22:00 Lipitor - PO HS YESENIA Chlorhexidine Gluconate 1 applic 04/03/17 22:00 Hibiclens For Decolonization - TP HS YESENIA Docusate Sodium 100 mg 04/03/17 00:26 Colace - PO Q12H PRN CONSTIPATION Guaifenesin 10 ml 04/02/17 17:13 04/02/17 17:51 Robitussin - PO 10 ml Q4H PRN Administration COUGH Heparin Sodium (Porcine) 1,000 unit 04/03/17 00:26 Heparin - IVPUSH PRN PRN Heparin Heparin Sodium (Porcine) 5,000 unit 04/03/17 00:26 Heparin - IVPUSH PRN PRN Heparin Heparin Sodium (Porcine) 25, 500 mls @ 23 mls/hr 04/03/17 00:26 04/03/17 00: 30 000 unit/ Sodium Chloride IV Not Given TITR [facility] Protocol 1,150 UNIT/HR Lisinopril 20 mg 04/03/17 10:00 Prinivil PO DAILY [facility] Metoprolol Succinate 25 mg 04/03/17 10:00 Toprol Xl - PO DAILY [facility] Nystatin 1 applic 04/03/17 10:00 Mycostatin Cream - TP BID [facility] Pantoprazole Sodium 40 mg 04/03/17 10:00 Protonix - PO DAILY [facility] Polyethylene Glycol 17 gm 04/03/17 10:00 Miralax (For Daily Use) - PO BID [facility] Warfarin Sodium 5 mg 04/03/17 18:00 Coumadin - PO DAILY@1800 YESENIA No micro Relevent Imaging - 03/27 carotid doppler - No hemodynamically significant plaque or stenosis 03/27 PM CTA (repeat, due to technical limitations in AM CTA) - 1. Large, bilateral pulmonary emboli. 2. Consolidation/atelectasis at both lung bases, left greater than right. 3. Trace pericardial effusion. 4. Cholelithiasis. Please see above discussion. 03/27 AM CXR - Imaging reveals a weak inspiration with large heart, unfolded aorta, congestive changes and left base infiltrate. Follow-up recommended. 03/27 BL LE Duplex - 1. Occlusive deep vein thrombosis in the right popliteal vein as described above. 2. No evidence of left lower extremity deep vein thrombosis, as above. 03/28 angiogram - Improved blood flow to LLL. Residual clot noted. ECHO 03/28 - Moderate RV function. Moderate TR, Mild MR. Moderate pulm htn. EF 67% CXR: 03/29 - Congestive changes. Cardiomegaly. Bibasilar infiltrates CXR 04/03 - Persistent LLL consolidation, L pleural effusion. R consolidation/ atelectasis. Assessment and plan 57 yo woman w/ pmh of HTN, HLD and CAD who presented with a syncopal episode, SOB, N/V, found to be persistently hypoxic/hypotensive in ED, now with CTA confirmed BL PEs s/p IR-guided thrombectomy and tPA-infusion. Pt remains stable with no further SOB, complaining of mild pleuritic CP. Tolerating ambulation with improving PERDUE. Currently on heparin to coumadin bridge. 1. Bilateral pulmonary embolism - Pt completed tPA infusion last week. Angiogram on 03/28 with improved blood flow to left lower lobe still with residual clot. Refused IVC filter after being advised of indication, risks and benefits; discussed with sonny who is an MD; elected for terminal block assembler AC. - Coumadin 5mg daily. AM INR 1.81, still subtherapeutic. F/u tomorrow - Continue heparin gtt for bridge - Will likely require lifelong AC. - Heme/onc consulted. Recommend thrombophilia w/u as outpt. Ab/pelvis CT scan for possible malignancies - Once INR therapeutic, remain in hospital for 24hr on heparin gtt then can go home 2. Acute hypoxic respiratory failure - Pt satting in 95-98% on RA. Plan for ambulation as tolerated. Mild PERDUE. - O2 therapy via NC if needed. Maintain sat >90% - SOB, hypoxia resolved - PT/RT 3. Possible PNA/leukocystosis - Possible infiltrate/PNA on imaging at left lung base. - Rocephin course [id number] - WBC uptrending, 17.4 today. UA normal. Urine cx, blood cx sent. - Afebrile overnight - Trend fever, wbc 4. Syncopal episode - No longer requires cardiac monitoring - fall risk precautions - Carotid u/s neg for stenosis/plaque - Echo notable for moderately decreased RV function, pulm htn. Mild MR, TR. 5. CAD - coronary stents in 2014 - ASA 81mg PO daily - lipitor 80 mg po daily - f/u lipid profile - Toprol xl 25 PO 6. HTN - Intermittently hypertensive to 150s systolic - Lisinopril 20mg PO daily - On Toprol XL 25 PO 8. HLD - lipitor 80mg PO hS 9. MARCO - Trend BUN/Cr - Avoid nephrotoxic agents. Limit contrast exposure. - off IVFs 10. Eletrolyte abs - Still with mild hyperna, 147 this AM. HypoK 3.6, repleted 40 KCl PO - Trend Na, K 11. Constipation - no BM today - senna, prune juice - Continue miralax BID 12. L arm hematoma - improving - Instructed to elevated arm at rest - warm compresses 13. Persistent cough - Robitussin PPX: - Heparin gtt, coumadin - Protonix 40 mg PO FEN Fluids: PO hydration Electrolytes: Daily BMP. Trend BUN/Cr Nutrition: Cardiac diet Dispo - Dispo to floors for further management given clinical improvement. Likely d/c tomorrow Plan discussed with attending, Dr. Richard Will, PGY1 Visit type - Emergency Visit Emergency Visit: Yes ED Registration Date: 03/27/17 Care time: The patient presented to the Emergency Department on the above date and was hospitalized for further evaluation of their emergent condition. - New Patient This patient is new to me today: No - Critical Care Critical Care patient: No
[2017-04-03] MEDS ORDERED: NAPH,MB-DB/K PH,MBDB POWDER PACKET PO ONE (10:19)
--- NOTE | 2017-04-03 10:44 | PN ---
Progress Note (short form) - Note Progress Note: Chief Complaint: PE History of Present Illness: no sob no palpit, syncope no cp Current Medications Generic Name Dose Route Start Last Admin Trade Name Freq PRN Reason Stop Dose Admin Al Hydroxide/Mg Hydroxide 30 ml 04/02/17 11:52 Mylanta Oral Suspension - PO Q6H PRN DYSPEPSIA Aspirin 81 mg 04/03/17 10:00 Asa - PO DAILY [facility] Atorvastatin Calcium 80 mg 04/03/17 22:00 Lipitor - PO HS [facility] Chlorhexidine Gluconate 1 applic 04/03/17 22:00 Hibiclens For Decolonization - TP HS [facility] Docusate Sodium 100 mg 04/03/17 00:26 Colace - PO Q12H PRN CONSTIPATION Guaifenesin 10 ml 04/02/17 17:13 04/02/17 17:51 Robitussin - PO 10 ml Q4H PRN Administration COUGH Heparin Sodium (Porcine) 1,000 unit 04/03/17 00:26 Heparin - IVPUSH PRN PRN Heparin Heparin Sodium (Porcine) 5,000 unit 04/03/17 00:26 Heparin - IVPUSH PRN PRN Heparin Heparin Sodium (Porcine) 25, 500 mls @ 23 mls/hr 04/03/17 00:26 04/03/17 00: 30 000 unit/ Sodium Chloride IV Not Given TITR [facility] Protocol 1,150 UNIT/HR Lisinopril 20 mg 04/03/17 10:00 Prinivil PO DAILY [facility] Metoprolol Succinate 25 mg 04/03/17 10:00 Toprol Xl - PO DAILY [facility] Nystatin 1 applic 04/03/17 10:00 Mycostatin Cream - TP BID [facility] Pantoprazole Sodium 40 mg 04/03/17 10:00 Protonix - PO DAILY [facility] Polyethylene Glycol 17 gm 04/03/17 10:00 Miralax (For Daily Use) - PO BID [facility] Warfarin Sodium 5 mg 04/03/17 18:00 Coumadin - PO DAILY@1800 [facility] - Objective Vital Signs: Vital Signs Period Temp Pulse Resp BP Sys/Shields Pulse Ox Last 24 Hr 98.7 F-99.1 F 56-74 18-20 129-159/70-78 98-98 Constitutional: Yes: No Distress, Calm, Obese Cardiovascular: Yes: Regular Rate and Rhythm, S1, S2. No: Gallop, Murmur Respiratory: Yes: Regular, CTA Bilaterally. No: Accessory Muscle Use, Wheezes Extremities: No: Cold Edema: No Neurological: Yes: Alert, Oriented Psychiatric: No: Agitated no jaundice diaphoresis Labs: CBC, BMP 04/03/17 05:00 04/03/17 05:00 EKG: Other (tele: SR, artifact) EKG x2: sinus tach. septal infarct. non-specific t wave ab echo 03/2017: nl lv size/fn. RV dilation and decreased function with concern for right heart strain. see emr for full report repeat echo 03/2017: tds, nl lv, rv not seen, mod xavi, mild mr, mild-mod tr, rvsp 30-40 chest cta: large bl pe's a/p: 57 year old with h/o HTN, HLD, and CAD (s/p stent placement 2 years prior) presents with syncope, persistent hypoxia, hypotension now with new dvt and PE. right heart strain with new dvt and b/l pe's. - large bl pe's on cta, s/p catheter thrombolysis by IR, and ivc filter for large dvt - on AC, hep bridge to coumadin. - Echo findings c/w for PE with right heart strain, no signs of right sided chf ; hemodynamically stable cad s/p remote pci, pos trops - troponin elevation here likely secondary to acute RV strain from PE. - nonspecific TWAs on ekg, similar on repeat (no old to compare) - trop peaked at 2.0, trending down now - no clinical sx's of acute myocardial ischemia process at present--observe - cont home ASA, atorva, bb as doing - not on YOUNG at home per pt - follows with dr golden for outpt cardio (and for YOUNG/BB dose reconcilitation/ titration) HTN -continue bb, ccb pulm infiltrate: -suspected infarction > pna per pulm team--defer abx to them
[2017-04-03] MEDS: PANTOPRAZOLE 40 MG TABLET (FP) PO SCH (10:50)
[2017-04-03] MEDS: LISINOPRIL 20 MG TABLET (FP) PO SCH (10:50)
[2017-04-03] MEDS: METOPROLOL SUCCINATE 25 MG TAB.SR.24H (FP) PO SCH (10:50)
[2017-04-03] MEDS: ASPIRIN 81 MG CHEWABLE TABLETS PO SCH (10:50)
[2017-04-03] MEDS: NYSTATIN 100,000 UNIT/GM TOPICAL CREAM 15 GM TUBE TP SCH ×2 (10:51→21:37)
[2017-04-03] MEDS: POLYETHYLENE GLYCOL 3350 119 GM BTL PO SCH ×2 (10:52→21:37)
[2017-04-03] MEDS: guaiFENesin 200 MG/10 ML 10 ML UNIT-DOSE CUPS PO PRN ×2 (11:07→16:41)
--- NOTE | 2017-04-03 13:28 | PN ---
Teaching Attending Note Name of Resident: Chavo Will ATTENDING PHYSICIAN STATEMENT I saw and evaluated the patient. I reviewed the resident's note and discussed the case with the resident. I agree with the resident's findings and plan as documented. SUBJECTIVE: no fever or chills. has no SOB at rest . still has SOB with exertion . OBJECTIVE: NAD, AAOx3. comfortable HEENT: Moist MM. CV: RRR. no MRG Lungs: bibasilar crackles, much improved Ext: no edema , tenderness to palpation on both legs Abd: suprapubic tenderness, no rebound tenderness. NL BS Assessment/Plan: 57 y/o pleasant lady with h/o HTN, HLP, CAD s/p stents placed 2 yrs ago, and recent treatment for CAP ( , and 2 weeks prior) who presented with a syncopal episode and SOB , was found to have acute massive PEs 1-Acute hypoxic resp failure: 2/2 Acute massive PEs s/p catheter directed thrombolysis . stable - Cont heparin , bridging to coumadin - give 5 mg of coumadin to night - follow INR. - symone 24 hr of overlap between coumadin and heparin after therapeutic INR 2-Unprovoked DVT in RLE: with family h/o unprovoked DVTS - cont bridging to coumadin - will need hypercoagulable w/u as outpt - appreciate Dr. Gorge Velez. CT scan of A/P with contrast was discussed with patient who will think about possibly getting it as out pt 3- Demand ischemia : stable . - cont ASA until f/u with data operations leader as out pt ( had stents in 2014) - cont BB 4- Worsening leukocytosis : no fever or chills, but has suprapubic tenderness. - check UA - although cxray cont to show bibasilar R>L linear opacities, this is likely atelectasis or infarcts from the PE. - blood cx sent 5-h/o HTN: - cont BB - Cont lisinopril - cont to hold HCTZ due to dehydration 5-dehydration: cont oral hydration 6- Dispo : HLOC pending thearputic INR with overlap Cont PT
[2017-04-03 14:25] LABS: URINE APPEARANCE CLEAR; URINE BILIRUBIN NEGATIVE (NEGATIVE); URINE BLOOD NEGATIVE (NEGATIVE); URINE COLOR STRAW; URINE GLUCOSE (UA) NEGATIVE (NEGATIVE); URINE KETONE NEGATIVE (NEGATIVE); URINE NITRITE NEGATIVE (NEGATIVE); URINE PROTEIN NEGATIVE (NEGATIVE); URINE UROBILINOGEN NEGATIVE mg/dL (0.2-1.0)
--- NOTE | 2017-04-03 15:25 | PN ---
Progress Note (short form) - Note Progress Note: Patient patient seen and examined in the ICU. Awake and alert. No CP. SOB is better. No acute events overnight. Intake & Output 03/31/17 04/01/17 04/02/17 04/03/17 23:59 23:59 23:59 23:59 Intake Total 911 1119 590 426 Output Total 700 600 Balance 211 1119 -10 426 Weight 227 lb 6 oz 230 lb 1.6 oz 233 lb 1 oz 234 lb 1.6 oz Last Vital Signs Temp Pulse Resp BP Pulse Ox 98.0 F 66 18 151/77 98 04/03/17 10:00 04/03/17 10:00 04/03/17 10:00 04/03/17 10:00 04/02/17 20:47 Active Medications Al Hydroxide/Mg Hydroxide (Mylanta Oral Suspension -) 30 ml PO Q6H PRN PRN Reason: DYSPEPSIA Aspirin (Asa -) 81 mg PO DAILY [facility] Last Admin: 04/03/17 10:50 Dose: 81 mg Atorvastatin Calcium (Lipitor -) 80 mg PO HS YESENIA Chlorhexidine Gluconate (Hibiclens For Decolonization -) 1 applic TP HS YESENIA Docusate Sodium (Colace -) 100 mg PO Q12H PRN PRN Reason: CONSTIPATION Guaifenesin (Robitussin -) 10 ml PO Q4H PRN PRN Reason: COUGH Last Admin: 04/03/17 11:07 Dose: 10 ml Heparin Sodium (Porcine) (Heparin -) 1,000 unit IVPUSH PRN PRN PRN Reason: Heparin Heparin Sodium (Porcine) (Heparin -) 5,000 unit IVPUSH PRN PRN PRN Reason: Heparin Heparin Sodium (Porcine) 25, (000 unit/ Sodium Chloride) 500 mls @ 23 mls/hr IV TITR YESENIA; 1,150 UNIT/HR PRN Reason: Protocol Last Admin: 04/03/17 00:30 Dose: Not Given Lisinopril (Prinivil) 20 mg PO DAILY [facility] Last Admin: 04/03/17 10:50 Dose: 20 mg Metoprolol Succinate (Toprol Xl -) 25 mg PO DAILY [facility] Last Admin: 04/03/17 10:50 Dose: 25 mg Nystatin (Mycostatin Cream -) 1 applic TP BID [facility] Last Admin: 04/03/17 10:51 Dose: 1 applic Pantoprazole Sodium (Protonix -) 40 mg PO DAILY [facility] Last Admin: 04/03/17 10:50 Dose: 40 mg Polyethylene Glycol (Miralax (For Daily Use) -) 17 gm PO BID [facility] Last Admin: 04/03/17 10:52 Dose: 17 gm Warfarin Sodium (Coumadin -) 5 mg PO DAILY@1800 [facility] Gen: Awake and alert, NAD Heart: RRR Lung: decreased breath sounds at the bases Abd: soft, nontender Ext: no edema Laboratory Results - last 24 hr 04/03/17 04/03/17 04/03/17 05:00 05:00 05:00 WBC 17.6 H RBC 4.19 Hgb 11.3 Hct 33.7 MCV 80.3 MCH 26.9 MCHC 33.5 RDW 16.4 H Plt Count 283 MPV 8.9 PT with INR 20.50 H INR 1.81 H D PTT (Actin FS) 79.0 H Sodium 147 H Potassium 3.6 Chloride 110 H Carbon Dioxide 30 Anion Gap 7 L BUN 12 Creatinine 0.7 Random Glucose 111 H Calcium 9.0 Phosphorus 2.7 D Magnesium 1.8 Lipase 199 Urine Color Urine Appearance Urine pH Ur Specific [place] Urine Protein Urine Glucose (UA) Urine Ketones Urine Blood Urine Nitrite Urine Bilirubin Urine Urobilinogen 04/03/17 04/03/17 05:00 13:30 WBC RBC Hgb Hct MCV MCH MCHC RDW Plt Count MPV PT with INR INR PTT (Actin FS) Sodium Potassium Chloride Carbon Dioxide Anion Gap BUN Creatinine Random Glucose Calcium Phosphorus Magnesium Lipase Cancelled Urine Color Straw Urine Appearance Clear Urine pH 5.0 Ur Specific [place] 1.011 Urine Protein Negative Urine Glucose (UA) Negative Urine Ketones Negative Urine Blood Negative Urine Nitrite Negative Urine Bilirubin Negative Urine Urobilinogen Negative ASSESSMENT AND PLAN: Massive Acute Pulmonary Emboli s/p catheter directed thrombolysis R DVT Lung infiltrate likely pulmonary infarct +Troponins - IV Heparin/Coumadin - O2 to keep SpO2 >90% - Monitor off ABX Dr Braswell
[2017-04-03] MEDS ORDERED: PT OWN MED DRAWER 7, Y5N ONE ×2 (16:48→18:48)
[2017-04-03] MEDS: WARFARIN NA 5 MG TABLET (UD) PO SCH (17:56)
[2017-04-03 19:03] LABS: URINE LEUK ESTERASE Negative (NEGATIVE)
[2017-04-03] MEDS: ATORVASTATIN CA 80 MG TABLET (FP) PO SCH (21:37)
[2017-04-03] MEDS ORDERED: CHLORHEXIDINE GLUCONATE 4% CLEANSER FOR DECOLONIZATION TP SCH (22:00)
[2017-04-04 06:14] LABS: MCH 26.5 pg (25.7-33.7); MEAN CELL VOLUME 80.4 fl (80-96); MEAN PLT VOLUME 8.3 fl (7.5-11.1); PLATELET COUNT 275 K/MM3 (134-434); RDW 17.1 % (11.6-15.6); WHITE BLOOD COUNT 16.1 K/mm3 (4.0-10.0)
[2017-04-04 06:28] LABS: INR 1.96 (0.82-1.09); PROTHROMBIN TIME (PATIENT) 22.2 SEC (9.98-11.88)
[2017-04-04 06:34] LABS: ANION GAP 5 (8-16); CALCIUM 8.5 mg/dL (8.5-10.1); CO2 30 mmol/L (21-32); CREATININE 0.7 mg/dL (0.55-1.02); GLUCOSE,RANDOM 103 mg/dL (74-106)
--- NOTE | 2017-04-04 08:40 | PN ---
Physical Exam: SUBJECTIVE: Patient seen and examined by me this AM - Endorses continually improving respiratory status. Still with mild, non- productive cough. Chills at night, - rigors, - fevers. - One small BM, poorly formed stool per nursing - Able to ambulate with minimal PERDUE w/ PT. Encourage to walk multiple times today. - Wants Ab/pelvis CT scan today for neoplasm work-up per heme/onc - no further accidents in bed - called PCP about outpt INR monitoring. Left message - Good sleep, energy, PO intake OBJECTIVE: Vital Signs Intake & Output 04/01/17 04/02/17 04/03/17 04/04/17 23:59 23:59 23:59 23:59 Intake Total 1119 590 426 426 Output Total 600 Balance 1119 -10 426 426 Weight 104.372 kg 105.715 kg 106.186 kg 104.145 kg Period Temp Pulse Resp BP Sys/Shields Pulse Ox Last 24 Hr 98.0 F-98.6 F 63-76 16-24 145-166/7-77 97-98 GENERAL: Patient is A&Ox3. Lying in bed in no acute distress. HEAD: NCAT ENT: Ears normal, nares patent, oropharynx clear without exudates, moist mucous membranes. NECK: Trachea midline, supple. No JVD noted. R neck dressing removed and examined. No bleeding, oozing or erythema. LUNGS: Trace bibasilar crackle. No accessory muscle use. HEART: Regular rate and rhythm, S1, S2. S3 noted. No other murmur, rub or gallop appreciated. ABDOMEN: Soft, globular, nontender, nondistended, normoactive bowel sounds, no guarding, no rebound. Upper EXTREMITIES: 1+ peripheral edema in upper extremities, more prominent distally in hands. 2+ pulses, warm, well-perfused. Still L large ecchymosis on medial forearm w/ resolving hematoma, more bruising in dependent portion of arm Lower extremities: 1+ DP, PT pulses bilaterally. 2+ nonpitting edema BL. WWP. Mild BL pain on palpation in LE, likely due to edema. No bony deformities, swelling, erythema or lesions noted at this location again. NEUROLOGICAL: Cranial nerves II through XII grossly intact. Normal speech, gait not observed. PSYCH: Appropriate affect. Interactive, good mood. Laboratory Results - last 24 hr CBC, BMP 04/04/17 05:00 04/04/17 05:00 04/03/17 04/03/17 04/03/17 05:00 05:00 13:30 WBC RBC Hgb Hct MCV MCH MCHC RDW Plt Count MPV PT with INR INR PTT (Actin FS) Sodium 147 H Potassium 3.6 Chloride 110 H Carbon Dioxide 30 Anion Gap 7 L BUN 12 Creatinine 0.7 Random Glucose 111 H Calcium 9.0 Phosphorus 2.7 D Magnesium 1.8 Lipase 199 Cancelled Urine Color Straw Urine Appearance Clear Urine pH 5.0 Ur Specific [place] 1.011 Urine Protein Negative Urine Glucose (UA) Negative Urine Ketones Negative Urine Blood Negative Urine Nitrite Negative Urine Bilirubin Negative Urine Urobilinogen Negative Ur Leukocyte Esterase Negative 04/04/17 04/04/17 04/04/17 05:00 05:00 05:00 WBC 16.1 H RBC 4.05 Hgb 10.7 Hct 32.6 MCV 80.4 MCH 26.5 MCHC 33.0 RDW 17.1 H Plt Count 275 MPV 8.3 PT with INR INR PTT (Actin FS) 37.5 H D Sodium 145 Potassium 3.9 Chloride 110 H Carbon Dioxide 30 Anion Gap 5 L BUN 12 Creatinine 0.7 Random Glucose 103 Calcium 8.5 Phosphorus Magnesium Lipase Urine Color Urine Appearance Urine pH Ur Specific [place] Urine Protein Urine Glucose (UA) Urine Ketones Urine Blood Urine Nitrite Urine Bilirubin Urine Urobilinogen Ur Leukocyte Esterase 04/04/17 05:00 WBC RBC Hgb Hct MCV MCH MCHC RDW Plt Count MPV PT with INR 22.20 H INR 1.96 H PTT (Actin FS) Sodium Potassium Chloride Carbon Dioxide Anion Gap BUN Creatinine Random Glucose Calcium Phosphorus Magnesium Lipase Urine Color Urine Appearance Urine pH Ur Specific [place] Urine Protein Urine Glucose (UA) Urine Ketones Urine Blood Urine Nitrite Urine Bilirubin Urine Urobilinogen Ur Leukocyte Esterase Active Medications Generic Name Dose Route Start Last Admin Trade Name Freq PRN Reason Stop Dose Admin Al Hydroxide/Mg Hydroxide 30 ml 04/02/17 11:52 Mylanta Oral Suspension - PO Q6H PRN DYSPEPSIA Aspirin 81 mg 04/03/17 10:00 04/03/17 10:50 Asa - PO 81 mg DAILY YESENIA Administration Atorvastatin Calcium 80 mg 04/03/17 22:00 04/03/17 21:37 Lipitor - PO 80 mg HS YESENIA Administration Docusate Sodium 100 mg 04/03/17 00:26 Colace - PO Q12H PRN CONSTIPATION Guaifenesin 10 ml 04/02/17 17:13 04/03/17 16:41 Robitussin - PO 10 ml Q4H PRN Administration COUGH Heparin Sodium (Porcine) 1,000 unit 04/03/17 00:26 Heparin - IVPUSH PRN PRN Heparin Heparin Sodium (Porcine) 5,000 unit 04/03/17 00:26 Heparin - IVPUSH PRN PRN Heparin Heparin Sodium (Porcine) 25, 500 mls @ 23 mls/hr 04/03/17 00:26 04/03/17 00: 30 000 unit/ Sodium Chloride IV Not Given TITR [facility] Protocol 1,150 UNIT/HR Lisinopril 20 mg 04/03/17 10:00 04/03/17 10:50 Prinivil PO 20 mg DAILY [facility]ENIA Administration Metoprolol Succinate 25 mg 04/03/17 10:00 04/03/17 10:50 Toprol Xl - PO 25 mg DAILY [facility]EN[facility] Administration Nystatin 1 applic 04/03/17 10:00 04/03/17 21:37 Mycostatin Cream - TP 1 applic BID YESENIA Administration Pantoprazole Sodium 40 mg 04/03/17 10:00 04/03/17 10:50 Protonix - PO 40 mg DAILY [facility] Administration Polyethylene Glycol 17 gm 04/03/17 10:00 04/03/17 21:37 Miralax (For Daily Use) - PO Not Given BID YESENIA Warfarin Sodium 5 mg 04/03/17 18:00 04/03/17 17:56 Coumadin - PO 5 mg DAILY@1800 [facility]ENIA Administration Urine cx, blood cx pending [facility] - 03/27 carotid doppler - No hemodynamically significant plaque or stenosis 03/27 PM CTA (repeat, due to technical limitations in AM CTA) - 1. Large, bilateral pulmonary emboli. 2. Consolidation/atelectasis at both lung bases, left greater than right. 3. Trace pericardial effusion. 4. Cholelithiasis. Please see above discussion. 03/27 AM CXR - Imaging reveals a weak inspiration with large heart, unfolded aorta, congestive changes and left base infiltrate. Follow-up recommended. 03/27 BL LE Duplex - 1. Occlusive deep vein thrombosis in the right popliteal vein as described above. 2. No evidence of left lower extremity deep vein thrombosis, as above. 03/28 angiogram - Improved blood flow to LLL. Residual clot noted. ECHO 03/28 - Moderate RV function. Moderate TR, Mild MR. Moderate pulm htn. EF 67% CXR: 03/29 - Congestive changes. Cardiomegaly. Bibasilar infiltrates CXR 04/03 - Persistent LLL consolidation, L pleural effusion. R consolidation/ atelectasis. Assessment and plan 57 yo woman w/ pmh of HTN, HLD and CAD who presented with a syncopal episode, SOB, N/V, found to be persistently hypoxic/hypotensive in ED, now with CTA confirmed BL PEs s/p IR-guided thrombectomy and tPA-infusion. Pt remains stable with no further SOB, complaining of mild pleuritic CP. Tolerating ambulation with improving PERDUE. Currently on heparin to coumadin bridge. INR 1.96. Will discharge after 24 heparin of therapeutic INR. #Bilateral pulmonary embolism - Pt completed tPA infusion last week. Angiogram on 03/28 with improved blood flow to left lower lobe still with residual clot. 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 - Coumadin 5mg daily. AM INR 1.96, still subtherapeutic. - Continue heparin gtt for bridge - Will likely require lifelong AC. - Heme/onc consulted. Recommend thrombophilia w/u as outpt. Ab/pelvis CT scan today, f/u results. - Once INR therapeutic, remain in hospital for 24hr on heparin gtt then can go home. Likely Friday. #Acute hypoxic respiratory failure - Pt satting in 95-98% on RA. Plan for ambulation as tolerated. Mild PERDUE. - O2 therapy via NC if needed. Maintain sat >90% - SOB, hypoxia resolved - PT/RT #Possible PNA/leukocystosis - Possible infiltrate/PNA on imaging at left lung base. - Rocephin course completed 04/01 - WBC uptrending, 16 today downtrending. UA normal. - f/u Urine cx, blood cx sent. - Afebrile overnight - Trend fever, wbc #Syncopal episode - No longer requires cardiac monitoring - fall risk precautions - Carotid u/s neg for stenosis/plaque - Echo notable for moderately decreased RV function, pulm htn. Mild MR, TR. #CAD - coronary stents in 2015 - ASA 81mg PO daily - lipitor 80 mg po daily - f/u lipid profile - Toprol xl 25 PO #HTN - Hypertensive to 160s overnight. - Lisinopril increased to 40mg - On Toprol XL 25 PO #HLD - lipitor 80mg PO hS #MARCO - 0.7 today - Trend BUN/Cr - Avoid nephrotoxic agents. Limit contrast exposure. - off IVFs #Eletrolyte abs - resolved #possible small pneumo - seen on CXR today - f/u repeat CXR #Constipation - 1 small, poorly formed BM overnight - senna, prune juice - Continue miralax BID - Start lactulose #L arm hematoma - improving - Instructed to elevated arm at rest - warm compresses #Persistent cough - Robitussin PPX: - Heparin gtt, coumadin - Protonix 40 mg PO FEN Fluids: PO hydration Electrolytes: Daily BMP. Trend BUN/Cr Nutrition: Cardiac diet Dispo - Dispo to floors for further management given clinical improvement. Likely d/c on Friday Plan discussed with attending, Dr. Richard Will, PGY1 Visit type - Emergency Visit Emergency Visit: Yes ED Registration Date: 03/27/17 Care time: The patient presented to the Emergency Department on the above date and was hospitalized for further evaluation of their emergent condition. - New Patient This patient is new to me today: No - Critical Care Critical Care patient: No
[2017-04-04] MEDS: HEPARIN NA (PORCINE) 5,000 UNITS/ML 1ML VIAL IVPUSH PRN ×2 (08:53)
[2017-04-04] MEDS: guaiFENesin 200 MG/10 ML 10 ML UNIT-DOSE CUPS PO PRN ×2 (08:54→18:37)
[2017-04-04] MEDS: METOPROLOL SUCCINATE 25 MG TAB.SR.24H (FP) PO SCH (08:59)
[2017-04-04] MEDS: LISINOPRIL 20 MG TABLET (FP) PO SCH ×2 (08:59→11:17)
[2017-04-04] MEDS: PANTOPRAZOLE 40 MG TABLET (FP) PO SCH (08:59)
[2017-04-04] MEDS: HEPARIN - 25,000 UNIT in SODIUM CHLORIDE 495 ML IV SCH ×2 (08:59→19:03)
[2017-04-04] MEDS: ASPIRIN 81 MG CHEWABLE TABLETS PO SCH (08:59)
[2017-04-04] MEDS: NYSTATIN 100,000 UNIT/GM TOPICAL CREAM 15 GM TUBE TP SCH ×2 (09:00→21:24)
[2017-04-04] MEDS: POLYETHYLENE GLYCOL 3350 119 GM BTL PO SCH ×2 (09:00→21:23)
[2017-04-04] MEDS: DOCUSATE SODIUM 100 MG CAPSULE (FP) PO PRN ×2 (09:20→21:23)
[2017-04-04] MEDS ORDERED: LACTULOSE 20 GM/30 ML UDC (FOR ORAL USE ONLY) PO ONE (10:00)
--- NOTE | 2017-04-04 10:55 | PN ---
Progress Note (short form) - Note Progress Note: Chief Complaint: PE History of Present Illness: no sob no palpit, syncope no cp Current Medications Generic Name Dose Route Start Last Admin Trade Name Kelvin PRN Reason Stop Dose Admin Al Hydroxide/Mg Hydroxide 30 ml 04/02/17 11:52 Mylanta Oral Suspension - PO Q6H PRN DYSPEPSIA Aspirin 81 mg 04/03/17 10:00 04/04/17 08:59 Asa - PO 81 mg DAILY YESENIA Administration Atorvastatin Calcium 80 mg 04/03/17 22:00 04/03/17 21:37 Lipitor - PO 80 mg HS YESENIA Administration Docusate Sodium 100 mg 04/03/17 00:26 04/04/17 09:20 Colace - PO 100 mg Q12H PRN Administration CONSTIPATION Guaifenesin 10 ml 04/02/17 17:13 04/04/17 08:54 Robitussin - PO 10 ml Q4H PRN Administration COUGH Heparin Sodium (Porcine) 1,000 unit 04/03/17 00:26 04/04/17 08:53 Heparin - IVPUSH 1,000 unit PRN PRN Administration Heparin Heparin Sodium (Porcine) 5,000 unit 04/03/17 00:26 04/04/17 08:53 Heparin - IVPUSH 5,000 unit PRN PRN Administration Heparin Heparin Sodium (Porcine) 25, 500 mls @ 23 mls/hr 04/03/17 00:26 04/04/17 08: 59 000 unit/ Sodium Chloride IV Not Given TITR YESENIA Protocol 1,150 UNIT/HR Lisinopril 40 mg 04/04/17 10:00 Prinivil PO DAILY [facility] Metoprolol Succinate 25 mg 04/03/17 10:00 04/04/17 08:59 Toprol Xl - PO 25 mg DAILY YESENIA Administration Nystatin 1 applic 04/03/17 10:00 04/04/17 09:00 Mycostatin Cream - TP 1 applic BID YESENIA Administration Pantoprazole Sodium 40 mg 04/03/17 10:00 04/04/17 08:59 Protonix - PO 40 mg DAILY [facility] Administration Polyethylene Glycol 17 gm 04/03/17 10:00 04/04/17 09:00 Miralax (For Daily Use) - PO 17 gm BID YESENIA Administration Warfarin Sodium 5 mg 04/03/17 18:00 04/03/17 17:56 Coumadin - PO 5 mg DAILY@1800 YESENIA Administration - Objective Vital Signs: Vital Signs Period Temp Pulse Resp BP Sys/Shields Pulse Ox Last 24 Hr 98.2 F-98.6 F 63-76 16-24 145-166/7-76 98-98 Constitutional: Yes: No Distress, Calm, Obese Cardiovascular: Yes: Regular Rate and Rhythm, S1, S2. No: Gallop, Murmur Respiratory: Yes: Regular, CTA Bilaterally. No: Accessory Muscle Use, Wheezes Extremities: No: Cold Edema: No Neurological: Yes: Alert, Oriented Psychiatric: No: Agitated no jaundice diaphoresis Labs: CBC, BMP 04/04/17 05:00 04/04/17 05:00 EKG: Other (tele: SR, artifact) EKG x2: sinus tach. septal infarct. non-specific t wave ab echo 03/2017: nl lv size/fn. RV dilation and decreased function with concern for right heart strain. see emr for full report repeat echo 03/2017: tds, nl lv, rv not seen, mod xavi, mild mr, mild-mod tr, rvsp 30-40 chest cta: large bl pe's a/p: 57 year old with h/o HTN, HLD, and CAD (s/p stent placement 2 years prior) presents with syncope, persistent hypoxia, hypotension now with new dvt and PE. right heart strain with new dvt and b/l pe's. - large bl pe's on cta, s/p catheter thrombolysis by IR, and ivc filter for large dvt - on AC, hep bridge to coumadin. - Echo findings c/w for PE with right heart strain, no signs of right sided chf ; hemodynamically stable - will need outpt repeat echo in several mos to see if rv improves cad s/p remote pci, pos trops - troponin elevation here likely secondary to acute RV strain from PE. - nonspecific TWAs on ekg, similar on repeat (no old to compare) - trop peaked at 2.0, trending down now - no clinical sx's of acute myocardial ischemia process at present--observe - cont home ASA, atorva, bb as doing - not on YOUNG at home per pt - follows with dr golden for outpt cardio (and for YOUNG/BB dose reconcilitation/ titration) HTN -continue bb, ccb pulm infiltrate: -suspected infarction
--- NOTE | 2017-04-04 12:28 | PN ---
Progress Note (short form) - Note Progress Note: Feels overall better. Ambulating with assistance. No CP or SOB. No acute events overnight. Intake & Output 04/01/17 04/02/17 04/03/17 04/04/17 23:59 23:59 23:59 23:59 Intake Total 1119 590 426 426 Output Total 600 Balance 1119 -10 426 426 Weight 230 lb 1.6 oz 233 lb 1 oz 234 lb 1.6 oz 229 lb 9.6 oz Last Vital Signs Temp Pulse Resp BP Pulse Ox 98.2 F 67 24 145/74 98 04/04/17 06:00 04/04/17 06:00 04/04/17 06:00 04/04/17 06:00 04/03/17 20:29 Active Medications Al Hydroxide/Mg Hydroxide (Mylanta Oral Suspension -) 30 ml PO Q6H PRN PRN Reason: DYSPEPSIA Aspirin (Asa -) 81 mg PO DAILY [facility] Last Admin: 04/04/17 08:59 Dose: 81 mg Atorvastatin Calcium (Lipitor -) 80 mg PO HS [facility]ENIA Last Admin: 04/03/17 21:37 Dose: 80 mg Docusate Sodium (Colace -) 100 mg PO Q12H PRN PRN Reason: CONSTIPATION Last Admin: 04/04/17 09:20 Dose: 100 mg Guaifenesin (Robitussin -) 10 ml PO Q4H PRN PRN Reason: COUGH Last Admin: 04/04/17 08:54 Dose: 10 ml Heparin Sodium (Porcine) (Heparin -) 1,000 unit IVPUSH PRN PRN PRN Reason: Heparin Last Admin: 04/04/17 08:53 Dose: 1,000 unit Heparin Sodium (Porcine) (Heparin -) 5,000 unit IVPUSH PRN PRN PRN Reason: Heparin Last Admin: 04/04/17 08:53 Dose: 5,000 unit Heparin Sodium (Porcine) 25, (000 unit/ Sodium Chloride) 500 mls @ 23 mls/hr IV TITR YESENIA; 1,150 UNIT/HR PRN Reason: Protocol Last Admin: 04/04/17 08:59 Dose: Not Given Lisinopril (Prinivil) 40 mg PO DAILY [facility] Metoprolol Succinate (Toprol Xl -) 25 mg PO DAILY [facility] Last Admin: 12/01/17 08:59 Dose: 25 mg Nystatin (Mycostatin Cream -) 1 applic TP BID [facility] Last Admin: 04/04/17 09:00 Dose: 1 applic Pantoprazole Sodium (Protonix -) 40 mg PO DAILY [facility] Last Admin: 04/04/17 08:59 Dose: 40 mg Polyethylene Glycol (Miralax (For Daily Use) -) 17 gm PO BID [facility] Last Admin: 04/04/17 09:00 Dose: 17 gm Warfarin Sodium (Coumadin -) 5 mg PO DAILY@1800 [facility] Last Admin: 04/03/17 17:56 Dose: 5 mg Gen: Awake and alert, NAD Heart: RRR Lung: decreased breath sounds at the bases Abd: soft, nontender Ext: no edema Laboratory Results - last 24 hr 04/03/17 04/03/17 04/03/17 05:00 05:00 13:30 WBC RBC Hgb Hct MCV MCH MCHC RDW Plt Count MPV PT with INR INR PTT (Actin FS) Sodium 147 H Potassium 3.6 Chloride 110 H Carbon Dioxide 30 Anion Gap 7 L BUN 12 Creatinine 0.7 Random Glucose 111 H Calcium 9.0 Phosphorus 2.7 D Magnesium 1.8 Lipase 199 Cancelled Urine Color Straw Urine Appearance Clear Urine pH 5.0 Ur Specific [place] 1.011 Urine Protein Negative Urine Glucose (UA) Negative Urine Ketones Negative Urine Blood Negative Urine Nitrite Negative Urine Bilirubin Negative Urine Urobilinogen Negative Ur Leukocyte Esterase Negative 04/04/17 04/04/17 04/04/17 05:00 05:00 05:00 WBC 16.1 H RBC 4.05 Hgb 10.7 Hct 32.6 MCV 80.4 MCH 26.5 MCHC 33.0 RDW 17.1 H Plt Count 275 MPV 8.3 PT with INR INR PTT (Actin FS) 37.5 H D Sodium 145 Potassium 3.9 Chloride 110 H Carbon Dioxide 30 Anion Gap 5 L BUN 12 Creatinine 0.7 Random Glucose 103 Calcium 8.5 Phosphorus Magnesium Lipase Urine Color Urine Appearance Urine pH Ur Specific [place] Urine Protein Urine Glucose (UA) Urine Ketones Urine Blood Urine Nitrite Urine Bilirubin Urine Urobilinogen Ur Leukocyte Esterase 04/04/17 05:00 WBC RBC Hgb Hct MCV MCH MCHC RDW Plt Count MPV PT with INR 22.20 H INR 1.96 H PTT (Actin FS) Sodium Potassium Chloride Carbon Dioxide Anion Gap BUN Creatinine Random Glucose Calcium Phosphorus Magnesium Lipase Urine Color Urine Appearance Urine pH Ur Specific [place] Urine Protein Urine Glucose (UA) Urine Ketones Urine Blood Urine Nitrite Urine Bilirubin Urine Urobilinogen Ur Leukocyte Esterase ASSESSMENT AND PLAN: Massive Acute Pulmonary Emboli s/p catheter directed thrombolysis R DVT Lung infiltrate likely pulmonary infarct +Troponins - IV Heparin/Coumadin - O2 to keep SpO2 >90% - Monitor off ABX - Ambulate Dr Braswell
--- NOTE | 2017-04-04 15:14 | PN ---
Teaching Attending Note Name of Resident: Chavo Will ATTENDING PHYSICIAN STATEMENT I saw and evaluated the patient. I reviewed the resident's note and discussed the case with the resident. I agree with the resident's findings and plan as documented. SUBJECTIVE: No fever or chills, has SOB with exertion . no pain in abd . no BM in few days OBJECTIVE: NAD, AAOx3. comfortable HEENT: Moist MM. CV: RRR. no MRG Lungs:CTAB Ext: no edema , tenderness to palpation on both legs Abd: NT. Assessment/Plan: 57 y/o pleasant lady with h/o HTN, HLP, CAD s/p stents placed 2 yrs ago, and recent treatment for CAP ( , and 2 weeks prior) who presented with a syncopal episode and SOB , was found to have acute massive PEs 1-Acute hypoxic resp failure: 2/2 Acute massive PEs s/p catheter directed thrombolysis . stable - Cont heparin , bridging to coumadin - give 5 mg of coumadin to night , INR 1.96 - need 24 hr of overlap between coumadin and heparin after therapeutic INR 2-Unprovoked DVT in RLE: with family h/o unprovoked DVTS - cont bridging to coumadin - will need hypercoagulable w/u as outpt - Pt agrees to CT a/p as inpt 3- Demand ischemia : stable . - cont ASA until f/u with slinger sequins as out pt ( had stents in 2014) - cont BB 4- leukomoid reaction. no fever or chills, no abd pain ,No diarrhea , UA is clean , Cxray with atelectasis. - monitor off ABx 5-H/o HTN: - cont BB - increase lisinopril - cont to hold HCTZ 6-Anticipate dc on Friday .
--- NOTE | 2017-04-04 16:50 | PN ---
Progress Note (short form) - Note Progress Note: Patient seen and examined Weak, fatigued. No chest pain or significant SOB Minimal ambulation in room with "heavy legs Last Vital Signs Temp Pulse Resp BP Pulse Ox 98.2 F 67 24 145/74 98 04/04/17 06:00 04/04/17 06:00 04/04/17 06:00 04/04/17 06:00 04/03/17 20:29 No icterus Lungs - diminished breath sounds bilaterally Cor -RSR Abdomen -soft Ext- LE edema CBC, BMP 04/04/17 05:00 04/04/17 05:00 INR, PTT INR 1.96 (0.82-1.09) H 04/04/17 05:00 Current Medications Generic Name Dose Route Start Last Admin Trade Name Freq PRN Reason Stop Dose Admin Al Hydroxide/Mg Hydroxide 30 ml 04/02/17 11:52 Mylanta Oral Suspension - PO Q6H PRN DYSPEPSIA Aspirin 81 mg 04/03/17 10:00 04/04/17 08:59 Asa - PO 81 mg DAILY YESENIA Administration Atorvastatin Calcium 80 mg 04/03/17 22:00 04/03/17 21:37 Lipitor - PO 80 mg HS YESENIA Administration Docusate Sodium 100 mg 04/03/17 00:26 04/04/17 09:20 Colace - PO 100 mg Q12H PRN Administration CONSTIPATION Guaifenesin 10 ml 04/02/17 17:13 04/04/17 08:54 Robitussin - PO 10 ml Q4H PRN Administration COUGH Heparin Sodium (Porcine) 1,000 unit 04/03/17 00:26 04/04/17 08:53 Heparin - IVPUSH 1,000 unit PRN PRN Administration Heparin Heparin Sodium (Porcine) 5,000 unit 04/03/17 00:26 04/04/17 08:53 Heparin - IVPUSH 5,000 unit PRN PRN Administration Heparin Heparin Sodium (Porcine) 25, 500 mls @ 23 mls/hr 04/03/17 00:26 04/04/17 08: 59 000 unit/ Sodium Chloride IV Not Given TITR [facility] Protocol 1,150 UNIT/HR Lisinopril 40 mg 04/04/17 10:00 Prinivil PO DAILY [facility] Metoprolol Succinate 25 mg 04/03/17 10:00 04/04/17 08:59 Toprol Xl - PO 25 mg DAILY YESENIA Administration Nystatin 1 applic 04/03/17 10:00 04/04/17 09:00 Mycostatin Cream - TP 1 applic BID YESENIA Administration Pantoprazole Sodium 40 mg 04/03/17 10:00 04/04/17 08:59 Protonix - PO 40 mg DAILY [facility] Administration Polyethylene Glycol 17 gm 04/03/17 10:00 04/04/17 09:00 Miralax (For Daily Use) - PO 17 gm BID [facility] Administration Warfarin Sodium 5 mg 04/03/17 18:00 04/03/17 17:56 Coumadin - PO 5 mg DAILY@1800 [facility] Administration Impression: Syncope Massive pulmonary embolism Pleural effusion/infiltrate likely infarct Anemia Leucocytosis DVT Plan: Continue bridge heparin---> coumadin Screening for anemia If persistent leucocytosis- VINICIUS-2 and BCR-ABL by PCR Thrombophilia work up.
[2017-04-04] MEDS: WARFARIN NA 5 MG TABLET (UD) PO SCH (18:34)
[2017-04-04] MEDS: ATORVASTATIN CA 80 MG TABLET (FP) PO SCH (21:23)
[2017-04-05] MEDS: HEPARIN - 25,000 UNIT in SODIUM CHLORIDE 495 ML IV SCH ×2 (00:59→18:02)
[2017-04-05] MEDS ORDERED: ACETAMINOPHEN 325 MG TABLET (FP) PO ONE (06:29)
[2017-04-05 07:03] LABS: INR 2.14 (0.82-1.09); PROTHROMBIN TIME (PATIENT) 24.2 SEC (9.98-11.88)
[2017-04-05] MEDS ORDERED: PT OWN MED DRAWER 7, Y5N ONE (07:28)
[2017-04-05 07:29] LABS: BASOPHIL 0.9 % (0-2.0); EOSINOPHIL 0.2 % (0-4.5); MCH 26.2 pg (25.7-33.7); MCHC 32.3 g/dl (32.0-36.0); MEAN CELL VOLUME 81.2 fl (80-96); MEAN PLT VOLUME 8.6 fl (7.5-11.1); NEUTROPHILS 79.1 % (42.8-82.8); PLATELET COUNT 296 K/MM3 (134-434); RDW 17.1 % (11.6-15.6); WHITE BLOOD COUNT 15.4 K/mm3 (4.0-10.0)
--- NOTE | 2017-04-05 09:11 | PN ---
Physical Exam: SUBJECTIVE: Patient seen and examined by me this AM - No overnight events. Afebrile, stable BP. Complaining of poor sleep. 1 BM, small. - Denies fever/chills, CP, palps, SOB, N/V, dysuria, throat pain, diarrhea, rashes. Still with constipation, dry cough, very mild PERDUE with ambulation OBJECTIVE: Vital Signs Intake & Output 04/02/17 04/03/17 04/04/17 04/05/17 23:59 23:59 23:59 23:59 Intake Total 518 175 2245 Output Total 600 Balance -10 426 1256 Weight 105.715 kg 106.186 kg 104.145 kg 104.145 kg Period Temp Pulse Resp BP Sys/Shields Pulse Ox Last 24 Hr 97.2 F-98.9 F 62-76 18-20 135-147/64-85 97 GENERAL: Patient is A&Ox3. Lying in bed in no acute distress. HEAD: NCAT ENT: Ears normal, nares patent, oropharynx clear without exudates, moist mucous membranes. NECK: Trachea midline, supple. No JVD noted. R neck dressing removed and examined. No bleeding, oozing or erythema. LUNGS: Trace bibasilar crackles. No wheezing, accessory muscle use. Anterior bruise on RUSB. HEART: Regular rate and rhythm, S1, S2. S3 noted. No other murmur, rub or gallop appreciated. ABDOMEN: Soft, globular, nontender, nondistended, normoactive bowel sounds, no guarding, no rebound. Upper EXTREMITIES: Still with 1+ peripheral edema in upper extremities, more prominent distally in hands. 2+ pulses, warm, well-perfused. Still L large ecchymosis on medial forearm w/ resolving hematoma, larger today. Lower extremities: 1+ DP, PT pulses bilaterally. 2+ nonpitting edema BL. WWP. Slight BL pain on palpation in LE, likely due to edema. No bony deformities, swelling, erythema or lesions noted at this location again. NEUROLOGICAL: Cranial nerves II through XII grossly intact. Normal speech, gait not observed. Laboratory Results - last 24 hr CBC, BMP 04/05/17 05:05 04/04/17 05:00 04/03/17 04/04/17 04/05/17 05:00 17:45 03:20 WBC RBC Hgb Hct MCV MCH MCHC RDW Plt Count MPV Neutrophils % Lymphocytes % Monocytes % Eosinophils % Basophils % Retic Count PT with INR INR PTT (Actin FS) 103.0 H D 84.5 H CA 19-9 Antigen 33 04/05/17 04/05/17 04/05/17 05:05 05:05 06:55 WBC 15.4 H RBC 4.09 Hgb 10.7 Hct 33.2 MCV 81.2 MCH 26.2 MCHC 32.3 RDW 17.1 H Plt Count 296 MPV 8.6 Neutrophils % 79.1 Lymphocytes % 11.9 Monocytes % 7.9 Eosinophils % 0.2 D Basophils % 0.9 Retic Count 2.57 H PT with INR 24.20 H INR 2.14 H PTT (Actin FS) CA 19-9 Antigen Active Medications Generic Name Dose Route Start Last Admin Trade Name Freq PRN Reason Stop Dose Admin Al Hydroxide/Mg Hydroxide 30 ml 04/02/17 11:52 Mylanta Oral Suspension - PO Q6H PRN DYSPEPSIA Aspirin 81 mg 04/03/17 10:00 04/04/17 08:59 Asa - PO 81 mg DAILY YESENIA Administration Atorvastatin Calcium 80 mg 04/03/17 22:00 04/04/17 21:23 Lipitor - PO 80 mg HS YESENIA Administration Docusate Sodium 100 mg 04/03/17 00:26 04/04/17 21:23 Colace - PO 100 mg Q12H PRN Administration CONSTIPATION Guaifenesin 10 ml 04/02/17 17:13 04/04/17 18:37 Robitussin - PO 10 ml Q4H PRN Administration COUGH Heparin Sodium (Porcine) 1,000 unit 04/03/17 00:26 04/04/17 08:53 Heparin - IVPUSH 1,000 unit PRN PRN Administration Heparin Heparin Sodium (Porcine) 5,000 unit 04/03/17 00:26 04/04/17 08:53 Heparin - IVPUSH 5,000 unit PRN PRN Administration Heparin Heparin Sodium (Porcine) 25, 500 mls @ 23 mls/hr 04/03/17 00:26 04/05/17 03: 54 000 unit/ Sodium Chloride IV 1,100 unit/hr TITR YESENIA 22 mls/hr Protocol Titration 1,150 UNIT/HR Lisinopril 40 mg 04/04/17 10:00 04/04/17 11:17 Prinivil PO Not Given DAILY [facility] Metoprolol Succinate 25 mg 04/03/17 10:00 04/04/17 08:59 Toprol Xl - PO 25 mg DAILY YESENIA Administration Nystatin 1 applic 04/03/17 10:00 04/04/17 21:24 Mycostatin Cream - TP 1 applic BID YESENIA Administration Pantoprazole Sodium 40 mg 04/03/17 10:00 04/04/17 08:59 Protonix - PO 40 mg DAILY YESENIA Administration Polyethylene Glycol 17 gm 04/03/17 10:00 04/04/17 21:23 Miralax (For Daily Use) - PO 17 gm BID YESENIA Administration Warfarin Sodium 5 mg 04/03/17 18:00 04/04/17 18:34 Coumadin - PO 5 mg DAILY@1800 YESENIA Administration [facility] - 03/27 carotid doppler - No hemodynamically significant plaque or stenosis 03/27 PM CTA (repeat, due to technical limitations in AM CTA) - 1. Large, bilateral pulmonary emboli. 2. Consolidation/atelectasis at both lung bases, left greater than right. 3. Trace pericardial effusion. 4. Cholelithiasis. Please see above discussion. 03/27 AM CXR - Imaging reveals a weak inspiration with large heart, unfolded aorta, congestive changes and left base infiltrate. Follow-up recommended. 03/27 BL LE Duplex - 1. Occlusive deep vein thrombosis in the right popliteal vein as described above. 2. No evidence of left lower extremity deep vein thrombosis, as above. 03/28 angiogram - Improved blood flow to LLL. Residual clot noted. ECHO 03/28 - Moderate RV function. Moderate TR, Mild MR. Moderate pulm htn. EF 67% CXR: 03/29 - Congestive changes. Cardiomegaly. Bibasilar infiltrates CXR 04/03 - Persistent LLL consolidation, L pleural effusion. R consolidation/ atelectasis. CXR P/A 04/04 later AM - 1. No definable pneumothorax. 2. Small left pleural effusion with underlying atelectasis versus consolidation, unchanged from immediate prior chest x-ray. 3. Subsegmental opacities in the right lung base represent atelectasis versus consolidation, not well evaluated on prior chest x- ray without lateral film. 4. Cholelithiasis. CT abdomen/pelvis 12/1 - 1. Segmental pulmonary artery due to filling defects in the right lower lobe, compatible with known pulmonary artery emboli. 2. Heterogeneously enhancing mass lesion multiple segments of both lung bases ( left more than right ), including a 3.0 x 2.2 cm rounded opacity in the left lung base. These may represent some combination of atelectasis, pneumonia and/ or pulmonary infarctions. A follow-up chest CT is recommended within 2 months to exclude underlying mass. 3. Multichamber cardiomegaly. Small pericardial effusion. 4. Cholelithiasis. No CT evidence of acute cholecystitis or biliary ductal dilatation. 5. No evidence of bowel obstruction. Normal appendix. Assessment and plan 57 yo woman w/ pmh of HTN, HLD and CAD who presented with a syncopal episode, SOB, N/V, found to be persistently hypoxic/hypotensive in ED, now with CTA confirmed BL PEs s/p IR-guided thrombectomy and tPA-infusion. Pt remains stable with no further SOB, complaining of mild pleuritic CP. Tolerating ambulation with improving PERDUE. Still on heparin to coumadin bridge. INR 2.14 this AM. Continue for 24 hours on heparin gtt then d/c tomorrow w/ outpt INR monitoring for coumadin. #Bilateral pulmonary embolism - Pt completed tPA infusion last week. Angiogram on 03/28 with improved blood flow to left lower lobe still with residual clot. Refused IVC filter after being advised of indication, risks and benefits; discussed with sonny who is an MD; elected for assisted AC. - Coumadin 5mg daily. AM INR 2.14 this AM - Continue heparin gtt for additional 24 hours, then can d/c - Will require lifelong AC, plan to d/c on coumadin - Heme/onc consulted. Recommend thrombophilia w/u as outpt. Ab/pelvis with no evidence of malignancy on read. Anemia panel sent. - Will likely go home tomorrow. Will require outpt monitoring of INR. Dr. Bocanegra, PCP, unable to be reached. Will f/u with heme/onc about outpt monitoring. #Acute hypoxic respiratory failure - Pt satting in 96% on RA. Plan for ambulation as tolerated. Minimal PERDUE with ambulation - O2 therapy via NC if needed. Maintain sat >90% - SOB, hypoxia resolved - PT/RT #Possible PNA/leukocystosis - Possible infiltrate/PNA on imaging at left lung base. - Rocephin course completed 04/01 - WBC uptrending, 15 today downtrending. UA normal. - Urine cx, blood cx neg to date - Afebrile overnight - Trend fever, wbc #Syncopal episode - No longer requires cardiac monitoring - fall risk precautions - Carotid u/s neg for stenosis/plaque - Echo notable for moderately decreased RV function, pulm htn. Mild MR, TR. #CAD - coronary stents in 2014 - ASA 81mg PO daily - lipitor 80 mg po daily - f/u lipid profile - Toprol xl 25 PO #HTN - Hypertensive to 160s overnight. - Lisinopril increased to 40mg - On Toprol XL 25 PO #HLD - lipitor 80mg PO hS #MARCO - 0.7 today - Trend BUN/Cr - Avoid nephrotoxic agents. Limit contrast exposure. - off IVFs #possible small pneumo - - No pneumo on repeat PA/lateral. #Constipation - 1 small BM overnight. - senna, prune juice - Continue miralax BID - Lactulose #L arm hematoma - - Instructed to elevated arm at rest - warm compresses #Persistent cough - Robitussin PPX: - Heparin gtt, coumadin - Protonix 40 mg PO FEN Fluids: PO hydration Electrolytes: Daily BMP. Trend BUN/Cr Nutrition: Cardiac diet Dispo - Dispo to floors for further management given clinical improvement. Likely d/c on Friday Plan discussed with attending, Dr. Richard Will, PGY1 Visit type - Emergency Visit Emergency Visit: Yes ED Registration Date: 03/27/17 Care time: The patient presented to the Emergency Department on the above date and was hospitalized for further evaluation of their emergent condition. - New Patient This patient is new to me today: No - Critical Care Critical Care patient: No
[2017-04-05] MEDS: ASPIRIN 81 MG CHEWABLE TABLETS PO SCH (09:23)
[2017-04-05] MEDS: METOPROLOL SUCCINATE 25 MG TAB.SR.24H (FP) PO SCH (09:23)
[2017-04-05] MEDS: LISINOPRIL 20 MG TABLET (FP) PO SCH (09:23)
[2017-04-05] MEDS: PANTOPRAZOLE 40 MG TABLET (FP) PO SCH (09:23)
[2017-04-05] MEDS: NYSTATIN 100,000 UNIT/GM TOPICAL CREAM 15 GM TUBE TP SCH ×2 (09:24→21:12)
[2017-04-05] MEDS: POLYETHYLENE GLYCOL 3350 119 GM BTL PO SCH ×2 (09:25→21:10)
[2017-04-05] MEDS: DOCUSATE SODIUM 100 MG CAPSULE (FP) PO PRN (09:29)
--- NOTE | 2017-04-05 10:26 | PN ---
Progress Note, Physician History of Present Illness: PULMONARY ALERT,OOB-CHAIR,+ COUGH,-CP,+PERDUE - Current Medication List Current Medications: Active Medications Al Hydroxide/Mg Hydroxide (Mylanta Oral Suspension -) 30 ml PO Q6H PRN PRN Reason: DYSPEPSIA Aspirin (Asa -) 81 mg PO DAILY [facility] Last Admin: 04/05/17 09:23 Dose: 81 mg Atorvastatin Calcium (Lipitor -) 80 mg PO HS [facility] Last Admin: 04/04/17 21:23 Dose: 80 mg Docusate Sodium (Colace -) 100 mg PO Q12H PRN PRN Reason: CONSTIPATION Last Admin: 04/05/17 09:29 Dose: 100 mg Guaifenesin (Robitussin -) 10 ml PO Q4H PRN PRN Reason: COUGH Last Admin: 04/04/17 18:37 Dose: 10 ml Heparin Sodium (Porcine) (Heparin -) 1,000 unit IVPUSH PRN PRN PRN Reason: Heparin Last Admin: 04/04/17 08:53 Dose: 1,000 unit Heparin Sodium (Porcine) (Heparin -) 5,000 unit IVPUSH PRN PRN PRN Reason: Heparin Last Admin: 04/04/17 08:53 Dose: 5,000 unit Heparin Sodium (Porcine) 25, (000 unit/ Sodium Chloride) 500 mls @ 23 mls/hr IV TITR YESENIA; 1,150 UNIT/HR PRN Reason: Protocol Last Titration: 04/05/17 03:54 Dose: 1,100 unit/hr, 22 mls/hr Lisinopril (Prinivil) 40 mg PO DAILY [facility] Last Admin: 04/05/17 09:23 Dose: 40 mg Metoprolol Succinate (Toprol Xl -) 25 mg PO DAILY [facility] Last Admin: 04/05/17 09:23 Dose: 25 mg Nystatin (Mycostatin Cream -) 1 applic TP BID [facility] Last Admin: 04/05/17 09:24 Dose: 1 applic Pantoprazole Sodium (Protonix -) 40 mg PO DAILY [facility] Last Admin: 04/05/17 09:23 Dose: 40 mg Polyethylene Glycol (Miralax (For Daily Use) -) 17 gm PO BID [facility] Last Admin: 04/05/17 09:25 Dose: 17 gm Warfarin Sodium (Coumadin -) 5 mg PO DAILY@1800 [facility] Last Admin: 04/04/17 18:34 Dose: 5 mg - Objective Vital Signs: Vital Signs Temperature 98.4 F 04/05/17 05:45 Pulse Rate 62 04/05/17 05:45 Respiratory Rate 20 04/05/17 05:45 Blood Pressure 145/85 04/05/17 05:45 O2 Sat by Pulse Oximetry (%) 97 04/04/17 21:00 Constitutional: Yes: Well Nourished, Calm Eyes: Yes: WNL HENT: Yes: WNL Neck: Yes: WNL Cardiovascular: Yes: Regular Rate and Rhythm, S1, S2 Respiratory: Yes: Diminished Gastrointestinal: Yes: Normal Bowel Sounds, Soft Extremities: Yes: WNL Edema: Yes Labs: CBC, BMP 04/05/17 05:05 04/04/17 05:00 INR, PTT INR 2.14 (0.82-1.09) H 04/05/17 06:55 Problem List - Problems (1) Acute massive pulmonary embolism Code(s): I26.99 - OTHER PULMONARY EMBOLISM WITHOUT ACUTE COR PULMONALE (2) Acute respiratory failure with hypoxia Code(s): J96.01 - ACUTE RESPIRATORY FAILURE WITH HYPOXIA (3) Cor pulmonale Code(s): I27.81 - COR PULMONALE (CHRONIC) (4) DVT (deep venous thrombosis) Code(s): I82.409 - ACUTE EMBOLISM AND THOMBOS UNSP DEEP VN UNSP LOWER EXTREMITY (5) HTN (hypertension) Code(s): I10 - ESSENTIAL (PRIMARY) HYPERTENSION Assessment/Plan ASSESSMENT AND PLAN: Massive Acute Pulmonary Emboli s/p catheter directed thrombolysis R DVT Lung infiltrate likely pulmonary infarct +Troponins - IV Heparin/Coumadin - O2 to keep SpO2 >90% - w/u hypercoagulable state outpatient DR FAJARDO
--- NOTE | 2017-04-05 10:55 | PN ---
Progress Note (short form) - Note Progress Note: Chief Complaint: PE History of Present Illness: no sob no palpit, syncope no cp Current Medications Generic Name Dose Route Start Last Admin Trade Name Freq PRN Reason Stop Dose Admin Al Hydroxide/Mg Hydroxide 30 ml 04/02/17 11:52 Mylanta Oral Suspension - PO Q6H PRN DYSPEPSIA Aspirin 81 mg 04/03/17 10:00 04/05/17 09:23 Asa - PO 81 mg DAILY YESENIA Administration Atorvastatin Calcium 80 mg 04/03/17 22:00 04/04/17 21:23 Lipitor - PO 80 mg HS YESENIA Administration Docusate Sodium 100 mg 04/03/17 00:26 04/05/17 09:29 Colace - PO 100 mg Q12H PRN Administration CONSTIPATION Furosemide 20 mg 04/05/17 11:00 Lasix - PO DAILY YESENIA Guaifenesin 10 ml 04/02/17 17:13 04/04/17 18:37 Robitussin - PO 10 ml Q4H PRN Administration COUGH Heparin Sodium (Porcine) 1,000 unit 04/03/17 00:26 04/04/17 08:53 Heparin - IVPUSH 1,000 unit PRN PRN Administration Heparin Heparin Sodium (Porcine) 5,000 unit 04/03/17 00:26 04/04/17 08:53 Heparin - IVPUSH 5,000 unit PRN PRN Administration Heparin Heparin Sodium (Porcine) 25, 500 mls @ 23 mls/hr 04/03/17 00:26 04/05/17 03: 54 000 unit/ Sodium Chloride IV 1,100 unit/hr TITR YESENIA 22 mls/hr Protocol Titration 1,150 UNIT/HR Lisinopril 40 mg 04/04/17 10:00 04/05/17 09:23 Prinivil PO 40 mg DAILY YESENIA Administration Metoprolol Succinate 25 mg 04/03/17 10:00 04/05/17 09:23 Toprol Xl - PO 25 mg DAILY YESENIA Administration Nystatin 1 applic 04/03/17 10:00 04/05/17 09:24 Mycostatin Cream - TP 1 applic BID YESENIA Administration Pantoprazole Sodium 40 mg 04/03/17 10:00 04/05/17 09:23 Protonix - PO 40 mg DAILY YESENIA Administration Polyethylene Glycol 17 gm 04/03/17 10:00 04/05/17 09:25 Miralax (For Daily Use) - PO 17 gm BID YESENIA Administration Warfarin Sodium 5 mg 04/03/17 18:00 04/04/17 18:34 Coumadin - PO 5 mg DAILY@1800 YESENIA Administration - Objective Vital Signs: Vital Signs Period Temp Pulse Resp BP Sys/Shields Pulse Ox Last 24 Hr 98.0 F-98.9 F 62-76 18-20 120-146/63-85 97-98 Constitutional: Yes: No Distress, Calm, Obese Cardiovascular: Yes: Regular Rate and Rhythm, S1, S2. No: Gallop, Murmur Respiratory: Yes: Regular, CTA Bilaterally. No: Accessory Muscle Use, Wheezes Extremities: No: Cold Edema: trace le edema bl Neurological: Yes: Alert, Oriented Psychiatric: No: Agitated no jaundice diaphoresis Labs: CBC, BMP 04/05/17 05:05 04/04/17 05:00 EKG: Other (tele: SR, artifact) EKG x2: sinus tach. septal infarct. non-specific t wave ab echo 03/2017: nl lv size/fn. RV dilation and decreased function with concern for right heart strain. see emr for full report repeat echo 03/2017: tds, nl lv, rv not seen, mod xavi, mild mr, mild-mod tr, rvsp 30-40 chest cta: large bl pe's a/p: 57 year old with h/o HTN, HLD, and CAD (s/p stent placement 2 years prior) presents with syncope, persistent hypoxia, hypotension now with new dvt and PE. right heart strain with new dvt and b/l pe's. - large bl pe's on cta, s/p catheter thrombolysis by IR, and ivc filter for large dvt - on AC, hep bridge to coumadin. - Echo findings c/w for PE with right heart strain, no signs of right sided chf ; hemodynamically stable - will need outpt repeat echo in several mos to see if rv improves -pt with some le edema, will start lasix 20 po qd, cont compression stockings as well. cad s/p remote pci, pos trops - troponin elevation here likely secondary to acute RV strain from PE. - nonspecific TWAs on ekg, similar on repeat (no old to compare) - trop peaked at 2.0, trending down now - no clinical sx's of acute myocardial ischemia process at present--observe - cont home ASA, atorva, bb as doing - not on YOUNG at home per pt - follows with dr golden for outpt cardio (and for YOUNG/BB dose reconcilitation/ titration) HTN -continue bb, ccb pulm infiltrate: -suspected infarction
[2017-04-05] MEDS: FUROSEMIDE 20 MG TABLET (FP) PO SCH (11:30)
[2017-04-05 12:10] LABS: FERRITIN 274.228 ng/ml (6.9-282.5); THYROID STIMULATING HORMONE 0.41 uIU/ml (0.358-3.74)
--- NOTE | 2017-04-05 12:20 | PN ---
Teaching Attending Note Name of Resident: Chavo Will ATTENDING PHYSICIAN STATEMENT I saw and evaluated the patient. I reviewed the resident's note and discussed the case with the resident. I agree with the resident's findings and plan as documented. SUBJECTIVE: No fever or chills. Has PERDUE. mild cough OBJECTIVE: NAD, AAOx3. comfortable HEENT: Moist MM. CV: RRR. no MRG Lungs: CTAB Ext: no edema , tenderness to palpation on both legs Abd: NT , nL BS. Assessment/Plan: 57 y/o pleasant lady with h/o HTN, HLP, CAD s/p stents placed 2 yrs ago, and recent treatment for CAP ( , and 2 weeks prior) who presented with a syncopal episode and SOB , was found to have acute massive PEs 1-Acute hypoxic resp failure: 2/2 Acute massive PEs s/p catheter directed thrombolysis . stable - Cont heparin , bridging to coumadin - give 5 mg of coumadin to night , INR 2.1 - need 24 hr of overlap between coumadin and heparin after therapeutic INR - need reepat echo in 2 weeks 2-Unprovoked DVT in RLE: with family h/o unprovoked DVTS - cont bridging to coumadin - will need hypercoagulable w/u as outpt and cancer w/u - CT reviewed. no abd masses. she will need reepat CT of chest to evaluate bases of lungs 3- Demand ischemia : stable . 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 monitor off Abx 5-H/o HTN: - cont BB - cont lisinopril - cont to hold HCTZ 6-Anticipate dc on Friday .
[2017-04-05] MEDS: WARFARIN NA 5 MG TABLET (UD) PO SCH (18:00)
[2017-04-05] MEDS: HEPARIN NA (PORCINE) 5,000 UNITS/ML 1ML VIAL IVPUSH PRN ×2 (18:02)
[2017-04-05] MEDS: ATORVASTATIN CA 80 MG TABLET (FP) PO SCH (21:00)
[2017-04-05] MEDS: guaiFENesin 200 MG/10 ML 10 ML UNIT-DOSE CUPS PO PRN (21:01)
[2017-04-06] MEDS: HEPARIN - 25,000 UNIT in SODIUM CHLORIDE 495 ML IV SCH
[2017-04-06] MEDS ORDERED: PT OWN MED DRAWER 7, Y5N ONE (00:11)
[2017-04-06 03:52] VITALS: TEMP 98.8
[2017-04-06 06:36] LABS: SERUM IRON 37 ug/dL (27-159); TOTAL IRON BINDING CAPACITY 224 ug/dL (250-450); UIBC 187 ug/dL (131-425)
[2017-04-06 06:52] LABS: MCH 26.5 pg (25.7-33.7); MCHC 32.7 g/dl (32.0-36.0); MEAN CELL VOLUME 80.9 fl (80-96); MEAN PLT VOLUME 8.5 fl (7.5-11.1); PLATELET COUNT 296 K/MM3 (134-434); RDW 17.2 % (11.6-15.6); WHITE BLOOD COUNT 11.7 K/mm3 (4.0-10.0)
[2017-04-06 07:28] LABS: INR 2.31 (0.82-1.09); PROTHROMBIN TIME (PATIENT) 26.1 SEC (9.98-11.88)
[2017-04-06] MEDS: METOPROLOL SUCCINATE 25 MG TAB.SR.24H (FP) PO SCH (09:02)
[2017-04-06] MEDS: NYSTATIN 100,000 UNIT/GM TOPICAL CREAM 15 GM TUBE TP SCH (09:03)
[2017-04-06] MEDS: ASPIRIN 81 MG CHEWABLE TABLETS PO SCH (09:03)
[2017-04-06] MEDS: FUROSEMIDE 20 MG TABLET (FP) PO SCH (09:03)
[2017-04-06] MEDS: POLYETHYLENE GLYCOL 3350 119 GM BTL PO SCH (09:03)
[2017-04-06] MEDS: LISINOPRIL 20 MG TABLET (FP) PO SCH (09:03)
[2017-04-06] MEDS: PANTOPRAZOLE 40 MG TABLET (FP) PO SCH (09:03)
--- NOTE | 2017-04-06 10:36 | PN ---
Progress Note, Physician History of Present Illness: PULMONARY ALERT,NAD,+MILD PERDUE,+ COUGH,-CP - Current Medication List Current Medications: Active Medications Al Hydroxide/Mg Hydroxide (Mylanta Oral Suspension -) 30 ml PO Q6H PRN PRN Reason: DYSPEPSIA Aspirin (Asa -) 81 mg PO DAILY [facility] Last Admin: 04/06/17 09:03 Dose: 81 mg Atorvastatin Calcium (Lipitor -) 80 mg PO HS [facility] Last Admin: 04/05/17 21:00 Dose: 80 mg Docusate Sodium (Colace -) 100 mg PO Q12H PRN PRN Reason: CONSTIPATION Last Admin: 04/05/17 09:29 Dose: 100 mg Furosemide (Lasix -) 20 mg PO DAILY [facility] Last Admin: 04/06/17 09:03 Dose: 20 mg Guaifenesin (Robitussin -) 10 ml PO Q4H PRN PRN Reason: COUGH Last Admin: 04/05/17 21:01 Dose: 10 ml Lisinopril (Prinivil) 40 mg PO DAILY [facility] Last Admin: 04/06/17 09:03 Dose: 40 mg Metoprolol Succinate (Toprol Xl -) 25 mg PO DAILY [facility] Last Admin: 04/06/17 09:02 Dose: 25 mg Nystatin (Mycostatin Cream -) 1 applic TP BID [facility] Last Admin: 04/06/17 09:03 Dose: 1 applic Pantoprazole Sodium (Protonix -) 40 mg PO DAILY [facility] Last Admin: 04/06/17 09:03 Dose: 40 mg Polyethylene Glycol (Miralax (For Daily Use) -) 17 gm PO BID [facility] Last Admin: 04/06/17 09:03 Dose: 17 gm Warfarin Sodium (Coumadin -) 5 mg PO DAILY@1800 [facility] Last Admin: 04/05/17 18:00 Dose: 5 mg - Objective Vital Signs: Vital Signs Temperature 98.8 F 04/06/17 02:00 Pulse Rate 65 04/06/17 05:57 Respiratory Rate 20 04/06/17 05:57 Blood Pressure 154/72 04/06/17 05:57 O2 Sat by Pulse Oximetry (%) 98 04/05/17 21:00 Constitutional: Yes: Well Nourished, Calm Eyes: Yes: WNL HENT: Yes: WNL Neck: Yes: WNL Cardiovascular: Yes: Regular Rate and Rhythm, S1, S2 Respiratory: Yes: CTA Bilaterally Gastrointestinal: Yes: Normal Bowel Sounds, Soft Extremities: Yes: WNL Edema: No Labs: CBC, BMP 04/06/17 05:05 INR, PTT INR 2.31 (0.82-1.09) H 04/06/17 05:05 Problem List - Problems (1) Acute massive pulmonary embolism Code(s): I26.99 - OTHER PULMONARY EMBOLISM WITHOUT ACUTE COR PULMONALE (2) Acute respiratory failure with hypoxia Code(s): J96.01 - ACUTE RESPIRATORY FAILURE WITH HYPOXIA (3) Cor pulmonale Code(s): I27.81 - COR PULMONALE (CHRONIC) (4) DVT (deep venous thrombosis) Code(s): I82.409 - ACUTE EMBOLISM AND THOMBOS UNSP DEEP VN UNSP LOWER EXTREMITY (5) HTN (hypertension) Code(s): I10 - ESSENTIAL (PRIMARY) HYPERTENSION Assessment/Plan ASSESSMENT AND PLAN: Massive Acute Pulmonary Emboli s/p catheter directed thrombolysis R DVT Lung infiltrate likely pulmonary infarct +Troponins Coumadin - O2 to keep SpO2 >90% - w/u hypercoagulable state outpatient - f/u echo outpatient - pfts outpatient - f/u chest ct outpatient - f/u d-dimer outpatient DR FAJARDO
--- NOTE | 2017-04-06 11:00 | PN ---
Progress Note (short form) - Note Progress Note: Chief Complaint: PE History of Present Illness: no sob no palpit, syncope no cp Current Medications Generic Name Dose Route Start Last Admin Trade Name Chemaq PRN Reason Stop Dose Admin Al Hydroxide/Mg Hydroxide 30 ml 04/02/17 11:52 Mylanta Oral Suspension - PO Q6H PRN DYSPEPSIA Aspirin 81 mg 04/03/17 10:00 04/06/17 09:03 Asa - PO 81 mg DAILY YESENIA Administration Atorvastatin Calcium 80 mg 04/03/17 22:00 04/05/17 21:00 Lipitor - PO 80 mg HS YESENIA Administration Docusate Sodium 100 mg 04/03/17 00:26 04/05/17 09:29 Colace - PO 100 mg Q12H PRN Administration CONSTIPATION Furosemide 20 mg 04/05/17 11:00 04/06/17 09:03 Lasix - PO 20 mg DAILY YESENIA Administration Guaifenesin 10 ml 04/02/17 17:13 04/05/17 21:01 Robitussin - PO 10 ml Q4H PRN Administration COUGH Lisinopril 40 mg 04/04/17 10:00 04/06/17 09:03 Prinivil PO 40 mg DAILY YESENIA Administration Metoprolol Succinate 25 mg 04/03/17 10:00 04/06/17 09:02 Toprol Xl - PO 25 mg DAILY YESENIA Administration Nystatin 1 applic 04/03/17 10:00 04/06/17 09:03 Mycostatin Cream - TP 1 applic BID YESENIA Administration Pantoprazole Sodium 40 mg 04/03/17 10:00 04/06/17 09:03 Protonix - PO 40 mg DAILY YESENIA Administration Polyethylene Glycol 17 gm 04/03/17 10:00 04/06/17 09:03 Miralax (For Daily Use) - PO 17 gm BID YESENIA Administration Warfarin Sodium 5 mg 04/03/17 18:00 04/05/17 18:00 Coumadin - PO 5 mg DAILY@1800 YESENIA Administration - Objective Vital Signs: Vital Signs Period Temp Pulse Resp BP Sys/Shields Pulse Ox Last 24 Hr 98.5 F-99.9 F 60-68 20-20 119-154/63-74 98 Constitutional: Yes: No Distress, Calm, Obese Cardiovascular: Yes: Regular Rate and Rhythm, S1, S2. No: Gallop, Murmur Respiratory: Yes: Regular, CTA Bilaterally. No: Accessory Muscle Use, Wheezes Extremities: No: Cold Edema: trace le edema bl Neurological: Yes: Alert, Oriented Psychiatric: No: Agitated no jaundice diaphoresis Labs: CBC, BMP 04/06/17 05:05 04/04/17 05:00 EKG: Other (tele: SR, artifact) EKG x2: sinus tach. septal infarct. non-specific t wave ab echo 03/2017: nl lv size/fn. RV dilation and decreased function with concern for right heart strain. see emr for full report repeat echo 03/2017: tds, nl lv, rv not seen, mod xavi, mild mr, mild-mod tr, rvsp 30-40 chest cta: large bl pe's a/p: 57 year old with h/o HTN, HLD, and CAD (s/p stent placement 2 years prior) presents with syncope, persistent hypoxia, hypotension now with new dvt and PE. right heart strain with new dvt and b/l pe's. - large bl pe's on cta, s/p catheter thrombolysis by IR, and ivc filter for large dvt - on AC, hep bridge to coumadin. - Echo findings c/w for PE with right heart strain, no signs of right sided chf ; hemodynamically stable - will need outpt repeat echo in several mos to see if rv improves -pt with some le edema, cont lasix 20 po qd, cont compression stockings as well. cad s/p remote pci, pos trops - troponin elevation here likely secondary to acute RV strain from PE. - nonspecific TWAs on ekg, similar on repeat (no old to compare) - trop peaked at 2.0, trending down now - no clinical sx's of acute myocardial ischemia process at present--observe - cont home ASA, atorva, bb as doing - not on YOUNG at home per pt - follows with dr golden for outpt cardio (and for YOUNG/BB dose reconcilitation/ titration) HTN -continue bb, ccb pulm infiltrate: -suspected infarction cardiac de la torre remains stable. should f/u as outpt for repeat echo to monitor improvement in right heart strain
[2017-04-06 14:38] VITALS: BP 120/63; PULSE 57
--- NOTE | 2017-04-06 19:47 | DS ---
Physical Exam: SUBJECTIVE: Patient seen and examined - Afebrile, stable BP. WBC downtrending. 1 BM, small. - Denies fever/chills, CP, palps, SOB, N/V, dysuria, throat pain, diarrhea, rashes. Still with constipation, dry cough, no significant PERDUE with ambulation - INR therapeutic; 2.14 -> 2.31 today OBJECTIVE: Vital Signs Period Temp Pulse Resp BP Sys/Shields Pulse Ox Last 24 Hr 98.8 F-98.9 F 57-83 20-20 120-154/63-74 95-98 PHYSICAL EXAM GENERAL: Patient is A&Ox3. Lying in bed in no acute distress. HEAD: NCAT ENT: Ears normal, nares patent, oropharynx clear without exudates, moist mucous membranes. NECK: Trachea midline, supple. No JVD noted. R neck dressing removed and examined. No bleeding, oozing or erythema. LUNGS: Trace bibasilar crackles. No wheezing, accessory muscle use. Anterior bruise on RUSB. HEART: Regular rate and rhythm, S1, S2. S3 noted. No other murmur, rub or gallop appreciated. ABDOMEN: Soft, globular, nontender, nondistended, normoactive bowel sounds, no guarding, no rebound. Upper EXTREMITIES: Still with 1+ peripheral edema in upper extremities, more prominent distally in hands. 2+ pulses, warm, well-perfused. Still L large ecchymosis on medial forearm w/ resolving hematoma, larger today. Lower extremities: 1+ DP, PT pulses bilaterally. 2+ nonpitting edema BL. WWP. Slight BL pain on palpation in LE, likely due to edema. No bony deformities, swelling, erythema or lesions noted at this location again. NEUROLOGICAL: Cranial nerves II through XII grossly intact. Normal speech, gait not observed. LABS Laboratory Results - last 24 hr CBC, BMP 04/06/17 05:05 04/04/17 05:00 04/05/17 04/05/17 04/06/17 05:05 21:46 05:05 WBC 11.7 H RBC 4.06 Hgb 10.7 Hct 32.8 MCV 80.9 MCH 26.5 MCHC 32.7 RDW 17.2 H Plt Count 296 MPV 8.5 PT with INR INR PTT (Actin FS) 69.6 H D Iron 37 TIBC 224 L Iron Saturation 17 04/06/17 04/06/17 05:05 05:05 WBC RBC Hgb Hct MCV MCH MCHC RDW Plt Count MPV PT with INR 26.10 H INR 2.31 H PTT (Actin FS) 90.7 H D Iron TIBC Iron Saturation HOSPITAL COURSE: Date of Admission:03/27/17 Date of Discharge: 04/06/17 57 yo woman w/ pmh of HTN, HLD and CAD who presented with a syncopal episode, SOB, N/V, found to be persistently hypoxic/hypotensive in ED, found with CTA confirmed BL PEs s/p IR-guided thrombectomy and tPA-infusion. Pt remains stable with no further SOB, complaining of mild pleuritic CP. Tolerating ambulation with improving PERDUE. Still on heparin to coumadin bridge. INR 2.14 this AM. Continue for 24 hours on heparin gtt then d/c tomorrow w/ outpt INR monitoring for coumadin. Micro: Microbiology 04/03/17 08:52 Blood - Peripheral Venous Blood Culture - Preliminary NO GROWTH OBTAINED AFTER 72 HOURS, INCUBATION TO CONTINUE FOR 2 DAYS. 04/03/17 08:52 Blood - Peripheral Venous Blood Culture - Preliminary NO GROWTH OBTAINED AFTER 72 HOURS, INCUBATION TO CONTINUE FOR 2 DAYS. 04/03/17 13:30 Urine - Urine Clean Catch Urine Culture - Final NO GROWTH OBTAINED Imagin/23 carotid doppler - No hemodynamically significant plaque or stenosis 03/27 PM CTA (repeat, due to technical limitations in AM CTA) - 1. Large, bilateral pulmonary emboli. 2. Consolidation/atelectasis at both lung bases, left greater than right. 3. Trace pericardial effusion. 4. Cholelithiasis. Please see above discussion. 03/27 AM CXR - Imaging reveals a weak inspiration with large heart, unfolded aorta, congestive changes and left base infiltrate. Follow-up recommended. 03/27 BL LE Duplex - 1. Occlusive deep vein thrombosis in the right popliteal vein as described above. 2. No evidence of left lower extremity deep vein thrombosis, as above. 03/28 angiogram - Improved blood flow to LLL. Residual clot noted. ECHO 03/28 - Moderate RV function. Moderate TR, Mild MR. Moderate pulm htn. EF 67% CXR: 03/29 - Congestive changes. Cardiomegaly. Bibasilar infiltrates CXR 04/03 - Persistent LLL consolidation, L pleural effusion. R consolidation/ atelectasis. CXR P/A 04/04 later AM - 1. No definable pneumothorax. 2. Small left pleural effusion with underlying atelectasis versus consolidation, unchanged from immediate prior chest x-ray. 3. Subsegmental opacities in the right lung base represent atelectasis versus consolidation, not well evaluated on prior chest x- ray without lateral film. 4. Cholelithiasis. CT abdomen/pelvis 04/04 - . Segmental pulmonary artery due to filling defects in the right lower lobe, compatible with known pulmonary artery emboli. 2. Heterogeneously enhancing mass lesion multiple segments of both lung bases ( left more than right ), including a 3.0 x 2.2 cm rounded opacity in the left lung base. These may represent some combination of atelectasis, pneumonia and/ or pulmonary infarctions. A follow-up chest CT is recommended within 2 months to exclude underlying mass. 3. Multichamber cardiomegaly. Small pericardial effusion. 4. Cholelithiasis. No CT evidence of acute cholecystitis or biliary ductal dilatation. 5. No evidence of bowel obstruction. Normal appendix. Consults: Cardiology - Pulmonology - Heme/Onc - Pt stable and ready for discharge, given successful completion of heparin to coumadin bridge, INR 2.31 today. Pt is significantly improved clinically, with no further episodes of SOB, syncope and has markedly improved PERDUE. Plan to discharge on coumadin for AC with outpt follow-up with Dr. Cobos for further evaluation of thrombophilia, given family hx of blood clots. 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 Discharge Summary Reason For Visit: SYNCOPE AND COLLAPSE, ELEVATED TROPONIN Condition: Stable - Instructions Diet, Activity, Other Instructions: You were treated for a pulmonary embolism, a clot in your lungs. Please see make an appoint with Dr. Haley's office for further evaluation of your clot . She will have access to your labs that are still pending. You will need to repeat a CT scan of your chest in 2-months to re-evaluate findings of possible atelectasis or mass in the bases of your lungs. Please see your primary care physician in one week for post-hospital evaluation. Continue taking Coumadin daily in evening at same time and repeat your lab work to check your INR level on 04/08 , fax result to Dr. Cobos at [phone]. Goal INR 2-3 Please follow-up with your sports photographer regarding continuing your aspirin with your coumadin, as they are both blood thinners. You also need reepat Echo of your heart in 2 weeks Resume activities as tolerated and avoid activities that cause bleeding since you are on blood thinners. If you develop chest pain, trouble breathing, vomit blood, develop fevers, notice excessive amounts of bruising on your body, changes in your vision, sustain a head injury or any new symptoms please return to the hospital. report any bleeding to your doctor. Avoid constipation We will fax a discharge summary to your PCP: Dr. Ailyn Bocanegra Fax: Referrals: Cherry Haley MD [Staff Physician] - 1 Week .MD [Non Staff, Medical] - ([facility] fax : [phone]) Lance Ly MD, MD [Staff Physician] - 3 Weeks Disposition: HOME - Home Medications Comprehensive Discharge Medication List: Ambulatory Orders Aspirin [Neli Chewable Aspirin] 81 mg PO DAILY 03/27/17 Atorvastatin Ca [Lipitor] 80 mg PO HS 03/27/17 Hydrochlorothiazide [Hctz -] 25 mg PO DAILY 03/27/17 Lisinopril [Prinivil] 20 mg PO DAILY 03/27/17 Metoprolol Tartrate 25 mg PO BID 03/27/17 Pantoprazole Sodium 40 mg PO DAILY 03/27/17 Docusate Sodium [Colace -] 100 mg PO Q12H PRN capsule 04/06/17 Miscellaneous Medical Supply [Outpatient Order] 1 each ASDIR #1 misc Warfarin Sodium [Coumadin] 5 mg PO DAILY #90 tablet 04/06/17
--- NOTE | 2017-04-07 08:23 | PN ---
Progress Note (short form) - Note Progress Note: Subjective: no pain or SOB Objective: Last Vital Signs Temp Pulse Resp BP Pulse Ox 98.8 F 57 L 20 120/63 95 04/06/17 14:00 04/06/17 14:00 04/06/17 14:00 04/06/17 14:00 04/06/17 11:53 Physical Exam: NAD, AAOx3. comfortable HEENT: Moist MM. CV: RRR. no MRG Lungs: CTAB Ext: no edema , tenderness to palpation on both legs Abd: NT , nL BS. Assessment/Plan: 57 y/o pleasant lady with h/o HTN, HLP, CAD s/p stents placed 2 yrs ago, and recent treatment for CAP ( , and 2 weeks prior) who presented with a syncopal episode and SOB , was found to have acute massive PEs 1-Acute hypoxic resp failure: 2/2 Acute massive PEs s/p catheter directed thrombolysis . stable -dc heparin gtt. cont coumadin 5 q PM . - spoke to [facility], who will be able to follow INR. - pt instructed to fax INR results ( 04/08/17) to dr. guadarrama - instruced to report any bleeding - f/u with [facility] for hypercoagulable w/u ) - needs echo as out pt in 2 weeks - repeat CT of chest in 2 months 2-Unprovoked DVT in RLE: with family h/o unprovoked DVTS - f/u as above 3- Demand ischemia : stable . - cont ASA until f/u with autoclave operator as out pt ( had stents in 2014) - cont BB 4-H/o HTN: - cont BB - cont lisinopril - resume HCTZ DC home Labs: Imaging: Assessment/Plan: Visit type - Emergency Visit Emergency Visit: Yes ED Registration Date: 03/27/17 Care time: The patient presented to the Emergency Department on the above date and was hospitalized for further evaluation of their emergent condition. - New Patient This patient is new to me today: No - Critical Care Critical Care patient: No
[2017-04-09 00:07] LABS: A/G RATIO 0.6 (0.7-1.7); ALBUMIN 2.1 g/dL (2.9-4.4); ALPHA-1-GLOBULIN 0.4 g/dL (0.0-0.4); GAMMA GLOBULIN 1.2 g/dL (0.4-1.8); GLOBULIN, TOTAL 3.6 g/dL (2.2-3.9); Hgb A2 3.7 % (0.7-3.1); M-SPIKE Not Observed g/dL (Not Observed); TOTAL PROTEIN 5.7 g/dL (6.0-8.5)
== END 2017-04-06 15:39 | disposition home or self-care (01) | DRG 950 ==
LOC: JER 23:48 → JERBED 03-27 02:59 → UNDOADMOB 03-27 03:01 → OBSVTOIN 03-27 03:04 → J4S 03-27 06:45 → JICU 03-27 16:31 → J2W 04-02 17:55 → J4W 04-04 19:52
PROVIDERS: ADMIT Internal Medicine; ATTEND Internal Medicine
PROC: 02CR3ZZ Extirpation of Matter from Left Pulmonary Artery, Percutaneous Approach (ICD-10-PCS; principal; 2017-03-27)
PROC: 02CQ3ZZ Extirpation of Matter from Right Pulmonary Artery, Percutaneous Approach (ICD-10-PCS; 2017-03-27)
PROC: 3E04317 Introduction of Other Thrombolytic into Central Vein, Percutaneous Approach (ICD-10-PCS; 2017-03-27)
DX: I26.99 Other pulmonary embolism without acute cor pulmonale (principal); J96.01 Acute respiratory failure with hypoxia; I82.431 Acute embolism and thrombosis of right popliteal vein; N17.9 Acute kidney failure, unspecified; J90 Pleural effusion, not elsewhere classified; E87.0 Hyperosmolality and hypernatremia; R55 Syncope and collapse; I27.20 Pulmonary hypertension, unspecified; I27.81 Cor pulmonale (chronic); I95.9 Hypotension, unspecified; I24.8 Other forms of acute ischemic heart disease; I36.1 Nonrheumatic tricuspid (valve) insufficiency; D68.59 Other primary thrombophilia; I10 Essential (primary) hypertension; E78.5 Hyperlipidemia, unspecified; I25.10 Atherosclerotic heart disease of native coronary artery without angina pectoris; E87.6 Hypokalemia; E66.9 Obesity, unspecified; Z68.38 Body mass index [BMI] 38.0-38.9, adult; K59.00 Constipation, unspecified; I34.0 Nonrheumatic mitral (valve) insufficiency; M79.81 Nontraumatic hematoma of soft tissue; R05 Cough; E86.0 Dehydration
CPT/HCPCS: 36415; 37187; 37212; 61651; 70450-TC; 71010-TC; 71020-TC; 71275-TC; 72070-TC; 74177-TC; 75743-TC; 75746-TC; 76000-TC; 76937-TC; 80048; 80053; 80061; 81003; 82340; 82436; 82550; 82553; 82570; 82607; 82728; 82746; 82784; 83021; 83036; 83540; 83550; 83605; 83690; 83721; 83735; 83880; 84100; 84155; 84165; 84300; 84439; 84443; 84484; 85025; 85027; 85044; 85610; 85613; 85660; 85730; 85732; 86301; 86334; 87040; 87086; 93005; 93010; 93306-TC; 93880-TC; 93970-TC; 94010; 94761; 97116-GP; 97161-GP; 99285-25; C1769; C1894; C9999; G0378; J1644; J2997; Q9967

== ENCOUNTER 2021-11-09 10:39 | Observation (INO) | payer OTHER ==
[2021-11-09 11:03] VITALS: BMI 36.0
[2021-11-09] MEDS ORDERED: ACETAMINOPHEN 1000 MG/100 ML BAG IVPB ONE (11:36)
[2021-11-09] MEDS ORDERED: ACETAMINOPHEN INJECTION 100 ML IVPB ONE (12:04)
[2021-11-09 12:34] LABS: BASO % 0.4 % (0-2.0); EOS % 0.3 % (0-4.5); HEMATOCRIT 43.5 % (32.4-45.2); HEMOGLOBIN 14.5 GM/dL (10.7-15.3); LYMPH % 21.2 % (8-40); MCH 28.5 pg (25.7-33.7); MCHC 33.2 g/dl (32.0-36.0); MEAN CELL VOLUME 85.9 fl (80-96); MEAN PLT VOLUME 8.5 fl (7.5-11.1); MONO % 8.2 % (3.8-10.2); NEUT % 69.9 % (42.8-82.8); PLATELET COUNT 199 10^3/uL (134-434); RBC 5.07 M/mm3 (3.60-5.2); RDW 16.3 % (11.6-15.6); WHITE BLOOD COUNT 7.9 K/mm3 (4.0-10.0)
[2021-11-09] MEDS ORDERED: FAMOTIDINE 20 MG/50 ML IVPB 20 MG in PREMIX 50 IVPB ONE (12:43)
[2021-11-09] MEDS ORDERED: MAG HYDROX/AL HYDROX/SIMETH -MYLANTA- ORAL SUSPENSION PO ONE (12:43)
[2021-11-09 12:46] LABS: INR 1.06 (0.83-1.09); PROTHROMBIN TIME (PATIENT) 12.2 SEC (9.7-13.0)
[2021-11-09 12:49] LABS: ACTIVATED PTT 24.9 SECONDS (25.2-36.5)
[2021-11-09 12:50] LABS: CALCIUM 9.4 mg/dL (8.5-10.1)
[2021-11-09 12:51] LABS: ALBUMIN 3.2 g/dl (3.4-5.0); BLOOD UREA NITROGEN 12.4 mg/dL (7-18)
[2021-11-09 12:55] LABS: TOT PROT 6.4 g/dl (6.4-8.2)
[2021-11-09 12:56] LABS: BILIRUBIN,TOTAL 0.7 mg/dL (0.2-1)
[2021-11-09] MEDS ORDERED: FAMOTIDINE 20 MG/50 ML IVPB 20 MG/50 ML MG IVPB ONE (12:59)
[2021-11-09] MEDS ORDERED: MAG HYDROX/AL HYDROX/SIMETH 30 ML UNIT-DOSE CUP ONE (12:59)
[2021-11-09] MEDS ORDERED: LISINOPRIL 10 MG TABLET PO SCH (16:15)
[2021-11-09] MEDS ORDERED: ALBUTEROL SO4 HFA INHALER IH PRN (17:07)
[2021-11-09] MEDS ORDERED: LISINOPRIL 20 MG TABLET ONE (17:32)
[2021-11-09] MEDS: LISINOPRIL 20 MG TABLET PO SCH (17:38)
[2021-11-09] MEDS ORDERED: METOPROLOL TARTRATE 25 MG TABLET (FP) PO SCH (22:00)
[2021-11-09] MEDS ORDERED: PANTOPRAZOLE 40 MG TABLET PO ONE (23:14)
[2021-11-09] MEDS ORDERED: APIXABAN 5 MG TABLET ONE (23:14)
[2021-11-09] MEDS: APIXABAN 5 MG TABLET PO SCH (23:20)
[2021-11-09] MEDS: PANTOPRAZOLE 40 MG TABLET PO SCH (23:20)
[2021-11-10 07:04] LABS: HEMOGLOBIN 14.2 GM/dL (10.7-15.3); MCH 28.5 pg (25.7-33.7); MCHC 33.1 g/dl (32.0-36.0); MEAN PLT VOLUME 8.3 fl (7.5-11.1); PLATELET COUNT 187 10^3/uL (134-434); RDW 16.5 % (11.6-15.6); WHITE BLOOD COUNT 7.3 K/mm3 (4.0-10.0)
[2021-11-10 07:25] LABS: BLOOD UREA NITROGEN 12.9 mg/dL (7-18); CALCIUM 9.2 mg/dL (8.5-10.1); MAGNESIUM 2.4 mg/dL (1.8-2.4)
[2021-11-10 07:28] LABS: CHOLESTEROL 192 mg/dL (50-200); TRIGLYCERIDES 62 mg/dL (0-150)
[2021-11-10 07:29] LABS: CREATININE 0.9 mg/dL (0.55-1.3); LDL CHOLESTEROL (ONLY SJRH) 122 mg/dL (5-100)
[2021-11-10 07:31] LABS: HDL CHOLESTEROL 54 mg/dL (40-60)
[2021-11-10] MEDS: PANTOPRAZOLE 40 MG TABLET PO SCH (10:59)
[2021-11-10] MEDS: APIXABAN 5 MG TABLET PO SCH ×2 (10:59→22:08)
[2021-11-10] MEDS: FUROSEMIDE 40 MG TABLET (FP) PO SCH (11:00)
[2021-11-10] MEDS: LISINOPRIL 20 MG TABLET PO SCH (11:00)
[2021-11-10] MEDS: amLODIPine BESYLATE 2.5 MG TABLET (FP) PO SCH (18:09)
[2021-11-11] MEDS: FUROSEMIDE 40 MG TABLET (FP) PO SCH (09:33)
[2021-11-11] MEDS: PANTOPRAZOLE 40 MG TABLET PO SCH (09:34)
[2021-11-11] MEDS: APIXABAN 5 MG TABLET PO SCH ×2 (09:34→21:44)
[2021-11-11] MEDS: LISINOPRIL 20 MG TABLET PO SCH (09:34)
[2021-11-11] MEDS: amLODIPine BESYLATE 2.5 MG TABLET (FP) PO SCH (09:34)
[2021-11-11 09:44] LABS: BASO % 0.3 % (0-2.0); EOS % 0.2 % (0-4.5); HEMATOCRIT 44.4 % (32.4-45.2); HEMOGLOBIN 14.5 GM/dL (10.7-15.3); LYMPH % 13.8 % (8-40); MCH 28.4 pg (25.7-33.7); MCHC 32.6 g/dl (32.0-36.0); MEAN CELL VOLUME 87.1 fl (80-96); MEAN PLT VOLUME 9.2 fl (7.5-11.1); MONO % 4.9 % (3.8-10.2); NEUT % 80.8 % (42.8-82.8); PLATELET COUNT 194 10^3/uL (134-434); RDW 16.4 % (11.6-15.6); WHITE BLOOD COUNT 7.1 K/mm3 (4.0-10.0)
[2021-11-11 10:14] LABS: CALCIUM 9.3 mg/dL (8.5-10.1)
[2021-11-11 10:15] LABS: MAGNESIUM 2.3 mg/dL (1.8-2.4)
[2021-11-11 10:17] LABS: CREATININE 0.9 mg/dL (0.55-1.3)
[2021-11-11 10:19] LABS: BILIRUBIN,TOTAL 0.9 mg/dL (0.2-1); TOT PROT 5.9 g/dl (6.4-8.2)
[2021-11-11] MEDS ORDERED: ACETAMINOPHEN 325 MG TABLET (FP) PO PRN (19:20)
[2021-11-12] MEDS: LISINOPRIL 20 MG TABLET PO SCH ×2 (08:40→10:00)
[2021-11-12] MEDS: amLODIPine BESYLATE 2.5 MG TABLET (FP) PO SCH ×2 (08:40→10:00)
[2021-11-12 09:01] LABS: BASO % 0.4 % (0-2.0); EOS % 0.2 % (0-4.5); HEMATOCRIT 42.8 % (32.4-45.2); HEMOGLOBIN 14.3 GM/dL (10.7-15.3); LYMPH % 18.2 % (8-40); MCH 28.7 pg (25.7-33.7); MCHC 33.4 g/dl (32.0-36.0); MEAN CELL VOLUME 85.9 fl (80-96); MEAN PLT VOLUME 8.9 fl (7.5-11.1); MONO % 13.3 % (3.8-10.2); NEUT % 67.9 % (42.8-82.8); PLATELET COUNT 195 10^3/uL (134-434); RBC 4.99 M/mm3 (3.60-5.2); RDW 16.1 % (11.6-15.6); WHITE BLOOD COUNT 7.3 K/mm3 (4.0-10.0)
[2021-11-12 09:35] LABS: BLOOD UREA NITROGEN 13.9 mg/dL (7-18); CALCIUM 9.3 mg/dL (8.5-10.1); MAGNESIUM 2.4 mg/dL (1.8-2.4)
[2021-11-12 09:39] LABS: CREATININE 0.9 mg/dL (0.55-1.3)
[2021-11-12 09:41] LABS: BILIRUBIN,TOTAL 0.7 mg/dL (0.2-1); TOT PROT 6.1 g/dl (6.4-8.2)
[2021-11-12] MEDS ORDERED: REGADENOSON 0.4 MG/5 ML PRE-FILLED SYRINGE IVPUSH ONE ×2 (10:15→10:29)
[2021-11-12 13:22] VITALS: BP 141/86
[2021-11-12] MEDS: FUROSEMIDE 40 MG TABLET (FP) PO SCH (13:23)
[2021-11-12] MEDS: APIXABAN 5 MG TABLET PO SCH (13:23)
[2021-11-12] MEDS: PANTOPRAZOLE 40 MG TABLET PO SCH (13:23)
[2021-11-12 14:12] VITALS: PULSE 65; TEMP 98
== END 2021-11-12 18:41 | disposition home or self-care (01) ==
LOC: JER 10:39 → JERBED 14:10 → J2W 11-10 02:18 → J4W 11-11 06:20
PROVIDERS: ADMIT Internal Medicine; ATTEND Nurse Practitioner Family
PROC: 3E033NZ Introduction of Analgesics, Hypnotics, Sedatives into Peripheral Vein, Percutaneous Approach (ICD-10-PCS; principal; 2021-11-09)
PROC: 3E033GC Introduction of Other Therapeutic Substance into Peripheral Vein, Percutaneous Approach (ICD-10-PCS; 2021-11-09)
DX: I25.10 Atherosclerotic heart disease of native coronary artery without angina pectoris (principal); I11.9 Hypertensive heart disease without heart failure; Z86.711 Personal history of pulmonary embolism; E66.8 Other obesity; Z68.30 Body mass index [BMI] 30.0-30.9, adult; Z95.1 Presence of aortocoronary bypass graft; Z79.01 Long term (current) use of anticoagulants; Z29.8 Encounter for other specified prophylactic measures; E78.5 Hyperlipidemia, unspecified
CPT/HCPCS: 36415; 71045-TC-FY; 78452-TC; 80048; 80053; 80061; 83036; 83735; 83880; 84443; 84484; 85025; 85027; 85610; 85730; 93005; 93010; 93017; 93306-TC; 96365; 96375; 99285-25; A9502; C9803-CS; G0378; J2785; U0003; U0005